=== PATIENT | male | born 1940 | race Caucasian/White ===

== ENCOUNTER 2016-11-06 06:30 | Inpatient (IN) ==
[2016-11-06] MEDS ORDERED: CeFAZolin Pre 2,000 MG/100 ML 2,000 MG/100 ML BAG IVPB ONE ×2 (06:51→16:00)
[2016-11-06] MEDS ORDERED: Plasma-Lyte A (PH 7.4) 1,000 ML IVC SCH (07:00)
[2016-11-06] MEDS ORDERED: Heparin 1,000 UNITS/500 mL NS 1,500 ML ONE (07:42)
[2016-11-06] MEDS ORDERED: Lidocaine -MPF 4% 5 ML AMPUL ONE (07:42)
[2016-11-06] MEDS ORDERED: *HR* FentaNYL (PF) 100 MCG/2 ML VIAL ONE (07:43)
--- NOTE | 2016-11-06 07:43 | History & Physical Report ---
Date of Encounter: 11/06/16 Time of Encounter: 07:42 24 Hour HP Update - Instructions Instructions: If the History and Physical is less than 30 days old and was completed prior to A.M. admission and or procedure and has NOT been updated on calendar day of procedure please complete this update prior to performing procedure. - Update Patient reports changes in Medical Condition: No Changes in examination, assessment, or condition: No Changes in Medication: No Preop tests/diagnostics Reviewed: Yes Pre-Op MRSA Screen: Negative Surgery Remains Indicated: Yes Consent for Planned Operative Procedure(s) Verified: Yes - Pre-Operative Checklist Preoperative Checklist Indicated: Yes Prophylactic Antibiotic Ordered: Yes Home Medications Include Beta Dave: Yes Beta Dave Taken Today (Day of Surgery): Yes Beta Dave Taken Yesterday (Day Prior to Surgery): Yes Is VTE Prophylaxis Indicated?: Yes
[2016-11-06] MEDS ORDERED: Lidocaine -MPF 2% 2 ML VIAL ONE ×2 (07:44→10:00)
[2016-11-06] MEDS ORDERED: *HR* Propofol 200 MG/20 ML VIAL IVP ONE (07:45)
[2016-11-06] MEDS ORDERED: *HR* Succinylcholine 200 MG/10 ML VIAL IVP ONE (07:45)
[2016-11-06] MEDS ORDERED: *HR* Phenylephrine 10 MG/ML VIAL ONE ×2 (07:47→16:13)
--- NOTE | 2016-11-06 07:49 | Anesthesia Evaluation PreOp ---
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: Denies Any Significant HX Other Medical History: Denies Any Significant HX Anesthesia History: No Prior Anesthetic Complications Alcohol Use: none Drug use: none Medications and Allergies Atorvastatin Calcium [Lipitor] 20 mg PO HS 11/06/16 [History] Cholecalciferol (D-3) [Vitamin D] 2,000 unit PO HS 11/06/16 [History] Famotidine [Pepcid] 20 mg PO HS 11/06/16 [History] Losartan Potassium [Cozaar] 50 mg PO DAILY 11/06/16 [History] Metoprolol [Lopressor] 100 mg PO BID 11/06/16 [History] Montelukast [Singulair] 10 mg PO HS 11/06/16 [History] Rivaroxaban [Xarelto] 15 mg PO HS 11/06/16 [History] 3 Allergy/AdvReac Type Severity Reaction Status Date / Time No Known Allergies Allergy Verified 11/06/16 07:11 - Meds/Allergy Pre-op Review Medications Reviewed: Yes Allergies Reviewed: Yes Beta Blockers on Current Med List: Yes (Took Metoprolol today 0430) Anesthesia Results - Labs Laboratory Tests 10/17/16 10/17/16 10/17/16 16:25 16:25 16:25 Hgb 14.7 Hct 46.8 Plt Count 106 L PT 25.4 H INR 2.3 APTT 39.0 H Sodium 141 Potassium 4.1 BUN 20 Creatinine 1.00 - Imaging EKG: report reviewed (Atrial Pacing) Additional studies: ECHO EF 40-45% Anesthesia Exam O2 Sat Height 1.83 m Height 1.83 m Height 1.83 m Weight 80.286 kg Weight 80.286 kg Weight 80.286 kg O2 Sat by Pulse Oximetry 98 O2 Sat by Pulse Oximetry 98 Vital Signs Temp Pulse Resp BP Pulse Ox 97.7 F 62 18 127/73 98 11/06/16 06:54 11/06/16 06:54 11/06/16 06:54 11/06/16 06:54 11/06/16 06:54 Height: 6'0 Weight: 174 lbs NPO (# of Hours): MN Pain Scale: 0 - HEENT Pupil (Motor): Pupils equal, EOMI Mallampati: II Denture Type: Upper: Complete Oral Opening: Less than or equal to 3 - DRAWING K[employer] SUPERVISOR LOC: Oriented [employer]RAWING [employer] SUPERVISOR Motor: Normal RUE, Normal LUE, Normal RLE, Normal LLE, Normal Face [employer] SUPERVISOR Sensory: Normal: RUE, LUE, RLE, LLE, Face - Cardiac Rhythm: Regular Murmur: None JVD: No Carotid Bruit: No - Pulmonary Breath Sounds: bilateral Clear Respiratory Effort: Symmetrical Anesthesia Assess/Plan ASA Score: 4 (Cardiomyopathy HTN) Modified Ada Scale for Level of Consciousness: Cooperative, oriented, and tranquil Anesthetic Plan: General Monitoring Plan: Standard Monitors, A-Line Recovery Plan: PACU (Discussed GA, A-line agrees to proceed)
[2016-11-06] MEDS ORDERED: Heparin 1,000 UNITS/500 mL NS 500 ML ONE (07:56)
[2016-11-06] MEDS ORDERED: *HR* Midazolam HCl 2 MG/2 ML VIAL ONE (08:21)
[2016-11-06] MEDS ORDERED: Heparin 1,000 UNITS/500 mL NS 1,000 ML ONE (09:59)
[2016-11-06] MEDS ORDERED: *HR* Heparin 5,000 UNIT/ML VIAL ONE ×2 (10:14→12:18)
[2016-11-06] MEDS ORDERED: EPHEDrine 50 MG/ML VIAL ONE ×2 (10:19→16:47)
[2016-11-06] MEDS ORDERED: Ringers Solution, Lactated 1,000 ML IVC SCH (12:15)
[2016-11-06] MEDS ORDERED: Dexamethasone 4 MG/ML VIAL ONE (12:23)
[2016-11-06] MEDS ORDERED: Ondansetron 4 MG/2 ML VIAL ONE (12:23)
[2016-11-06] MEDS ORDERED: *HR* HYDROmorphone 2 MG/ML SYRINGE ONE (15:02)
--- NOTE | 2016-11-06 15:39 | Operative Note ---
Date of procedure: 11/06/16 Pre-op diagnosis: PAD/claudication Post-op diagnosis: same Procedure: right leg angiogram with attempted endovascular intervention for right BK popliteal [employer] right femoral-tibioperoneal trunk bypass with 6 mm PTFE Distaflo right [employer] endarterectomy with Hemashield patch angioplasty right BK popliteal and TPT endarterectomy with bovine pericardial patch angioplasty right post. tibial artery thrombectomy with 3 Fr Bozena Complications: none Anesthesia: GETA Surgeon: Sanjiv Joyce Co-Surgeon: Darwin Ashraf Estimated blood loss (cc): 250 Specimen: none Condition: stable Disposition: PACU Procedure in Detail: History Blaise Turner is a 75-year-old white male with a long history of peripheral vascular and cardiovascular disease. He does undergone a aortobifemoral bypass graft in 1992. He re-presented to my office this summer with severe right lower extremity pain and claudication. He was found to have an occluded popliteal and tibial system proximally and an ankle-brachial index of 0.5. Patient also has significant cardiac disease as well as cardiac arrhythmias and cardiomyopathy. Procedure After informed consent was obtained the patient was taken to the operating room. General endotracheal anesthesia was established. Arterial line was placed. A timeout protocol was observed. A 2 team surgical approach was necessary for this case due to the complexity of the operation and to expedite intraoperative decision making as well as to reduce intraoperative blood loss and anesthetic time in this redo procedure with the patient with compromise cardiovascular status. An incision was made in the right groin. Dissection was carried down to the right groin common femoral artery system and the right limb of the aortobifemoral bypass graft. An 18-gauge needle was used to puncture the common femoral artery through the location of the foot of the graft. A 5 Gabonese sheath was then placed and this was eventually exchanged for 6 Gabonese sheath. An angiogram was then performed by injecting contrast through the sheath into the right lower extremity. Contrast was followed from the common femoral artery to the distal tibials. The patient was identified as having an occluded below the knee and at the knee popliteal artery and tibial peroneal trunk. The patient also appeared to have an occluded anterior tibial artery. Therefore an attempt was made to cross the lesion. A glide catheter and Glidewire were then inserted. The Glidewire was able to transverse the popliteal artery occlusion. However when trying to selectively cannulate the tibial vessels and this was found to be unsuccessful. A variety of wires and catheters were used. It was judged that there was significant plaque that it prevented the wire from being placed so that an angioplasty could be safely performed and so therefore the endovascular approach to this problem was abandoned and the patient needed an open procedure. Attention was then directed to the [id number] popliteal area. An incision was made and dissection was carried down to the [id number] popliteal and tibial peroneal trunk and tibial bifurcation regions. The patient had previous surgery here so as in the groin which was a redo procedure the right calf area was also redo. There was significant inflammatory changes and adhesions between the arteries and veins at this location leading to a tedious dissection. Eventually control was obtained of the vessels. There are no Doppler signals present. The vessels were small in size. A subsartorial tunnel was then created and a 6 mm PTFE bypass graft was selected. This was a Distaflo graft. He was then passed through the tunnel. Heparin was then administered in a dose of 5000 units. The common femoral artery was then opened. A dense calcific plaque was identified. This required a formal right common femoral artery endarterectomy. After the endarterectomy was successfully performed a patch angioplasty using Hemashield was then performed. Simultaneously the [id number] popliteal and tibial peroneal trunk artery were explored. A long endarterectomy was necessary at this location as well. The tibial peroneal trunk and proximal posterior tibial artery were very fragile and required a very delicate and tedious approach. Backbleeding was established from the anterior tibial artery. A bovine pericardial patch was selected for the below-knee popliteal and tibial peroneal trunk. After the these 2 endarterectomies in patches were performed the anastomoses were created. The distal anastomosis was treated first onto the bovine pericardial patch. After this was done the proximal anastomosis was created onto the endarterectomized and patched common femoral artery. After appropriate backbleeding and flushing the graft was opened. Pulsatile flow was achieved through the graft where area however runoff into the surgical circulation was unsatisfactory. Therefore further dissection was made of the right posterior tibial artery by extending the incision in the calf. The vessel itself measured 2-3 mm in diameter. Soft. Control was obtained of the vessel. A transverse arteriotomy was then made. A 3 Gabonese Bozena catheter was passed from this incision to the level of the foot. This was able to pass with minimal resistance. The area was flushed with saline at. Neck bleeding was then established. Attention was then directed retrograde. The 3 [place]onese Bozena catheter was passed into the more proximal posterior tibial artery and the tibial peroneal trunk trunk up to the area of the anastomosis to the bypass graft. Then progressively increasing diameter dilators were gently inserted retrograde. This included a 1.5, 2.0, and 2.5 mm arterial dilators. With this done and excellent pulsatile flow was established. This area was back flushed. The transverse arteriotomy at the posterior tibial artery was then closed with 6 -0 Prolene suture. After appropriate backbleeding and flushing the area was then opened again. The patient demonstrated palpable pulse and a strong biphasic signal at the posterior tibial artery at the ankle. With this accomplished the revascularization had achieved its intended goal. Therefore the wounds were irrigated and hemostasis was achieved. The wounds were then closed in layers using absorbable suture. There were no intraoperative complications. The patient tolerated the procedure well. The patient was excreted in the operating room. He was taken to the recovery room in hemodynamically stable condition.
[2016-11-06] MEDS ORDERED: CeFAZolin (wt based) IVPB STA (15:49)
[2016-11-06] MEDS: *HR* HYDROmorphone (PF) 1 MG/ML SYRINGE IVP PRN ×4 (15:50→16:45)
--- NOTE | 2016-11-06 17:27 | Anesthesia Evaluation Post Op ---
Date of Encounter: 11/06/16 Time of Encounter: 17:24 - Vital Signs Vital Signs: Vital Signs/O2 Sat/Glucose, Most Current Temp Pulse Resp BP Pulse Ox 11/06/16 17:08 61 16 108/94 98 11/06/16 16:59 60 16 100/66 98 11/06/16 16:49 60 14 101/50 98 11/06/16 16:39 97.5 F L 60 16 95/63 97 11/06/16 16:29 60 16 115/68 98 11/06/16 16:19 61 16 107/54 98 11/06/16 16:09 97.6 F 60 16 106/50 96 11/06/16 15:59 60 16 83/55 93 11/06/16 15:49 61 16 98/56 96 11/06/16 15:39 98.3 F 61 12 114/47 98 - Lungs Lungs: Clear Ascult./Percussion - Airway Airway: Non-obstructed - Cardiovascular Baseline Rhythm - Mental Status Mental Status: Alert & Oriented, Answers Appropriately - Pain Pain Scale: 0 Pain Scale used: Numeric (1 - 10) - Nausea Vomiting Nausea Vomiting: Not Present - Hydration Hydration: Ice chips, Burton catheter - Discharge PostOp Status: Transfer Patient to floor Anes Supervising Prov Stmt: Pt seen/evaluated, VSS And pt has met criteria for discharge to floor. - MD Elva
[2016-11-06] MEDS ORDERED: *HR* HYDROcodone/Acet 5/325 mg TABLET PO PRN (17:29)
[2016-11-06] MEDS ORDERED: *HR* Morphine 2 MG/ML SYRINGE IVP PRN ×2 (17:29)
[2016-11-06] MEDS ORDERED: Naloxone 0.4 MG/ML INJ IVP PRN (17:29)
[2016-11-06] MEDS ORDERED: ceFAZolin 2,000 MG in D5% in Water 100 ML IVPB SCH (17:29)
[2016-11-06] MEDS ORDERED: Acetaminophen 325 MG TABLET PO PRN (17:29)
[2016-11-06] MEDS: Metoprolol 100 MG TABLET PO SCH (20:27)
[2016-11-06] MEDS ORDERED: Famotidine 20 MG TABLET PO SCH (21:00)
--- NOTE | 2016-11-06 23:36 | Operative Note ---
Date of procedure: 11/06/16 Pre-op diagnosis: Peripheral vascular disease with disabling claudication Post-op diagnosis: same Procedure: 1. Right common femoral artery endarterectomy with Hemashield patch angioplasty 2. Right popliteal and tibioperoneal trunk endarterectomy with bovine pericardial patch angioplasty. 3. Right common femoral to tibioperoneal trunk artery bypass with 6mm PTFE Distaflo graft. 4. Right posterior tibial artery thrombectomy with 3 bahamian alexandra embolectomy catheter. Complications: None Anesthesia: GETA Surgeon: Darwin Ashraf Co-Surgeon: Sanjiv Joyce Estimated blood loss (cc): 250 Specimen: None Condition: stable Disposition: PACU Procedure in Detail: Indications: The patient is a 75 year old male with a history of cornary artery disease, ischemic cardiomyopathy and peripheral vascular disease. He previously underwent an aortobifemoral bypass. He was recently found to have disabling claudication and was found to have significant disease a popliteal and tibial artery occlusion. Due to the severity of his symptoms, revascularization was recommended. Procedure: The patient was identified in the preoperative area. The risks, benefits, and alternatives of the procedure were discussed. All questions were answered. The patient was taken to the operating room and placed in supine position on the operating room table. After the induction of general endotracheal anesthesia, he was cleaned and draped in normal sterile fashion. A two surgeon approach was utilized for this procedure in order to minimize anesthetic time and the risks for complications due to the patients comorbid conditions. In addition, a two surgeon approach was used for intraoperative decision making. An oblique incision was made over the right groin sharply through his previous scar. Hemostasis was obtained with electrocautery. Through a process of blunt , sharp, and electrocautery dissection, the right femoral vessels were dissected circumferentially and surrounded with vessel loops. Dr. Joyce accessed the right femoral artery with a large bore needle and advanced a wire into the superficial femoral artery. The needle was exchanged for a 5 bahamian sheath and then exchanged for a 6 bahamian sheath. Angiography was performed and multiple attempts to cross the occluded popliteal and tibial vessels and reenter the [place] artery were unsuccessful. An incision was made on the right medial calf sharply. Hemostasis was obtained with electrocautery. Through a process of blunt, sharp, and electrocautery dissection, the left below-knee popliteal artery was dissected proximally and distally and surrounded with vessel loops. A graft was tunneled between the popliteal and femoral incisions. The patient received 5000 units of heparin intravenously. Additional heparin was given throughout the case to maintain adequate anticoagulation. The popliteal vessels were occluded and a longitudinal arteriotomy was made in the popliteal artery. Due to the extent of the occlusion, the tibioperoneal trunk, and anterior tibial vessels were dissected. This required ligation and division of the anterior tibial vein. The tibial vessels were surrounded with vessel loops and the arteriotomy was extended into the tibioperoneal trunk until the vessel lumen appear patent. Using a dental freer, an endarterectomy was performed on the below knee popliteal artery and tibioperoneal trunk artery. A bovine pericardial patch was cut to fit the defect and sutured in place with a running 6-0 prolente. Simultaneously, tension was applied to the femoral vessel loops and an arteriotomy was made in the common femoral artery. Extensive stenotic plaque was noted. A dental freer was then used to perform an endartectomy on the right common femoral artery. Proximal and distal endpoints were inspected and no elevated flaps were noted. A bovine pericardial patch was then cut to fit the defect and sutured in place with a 6-0 Prolene. The patch over the popliteal artery and tibioperoneal trunk artery was incised longitudinally. The distal end of the graft was sutured in place with a running 6-0 Prolene, but not tied. Heparinized saline was infused into the lumen. A longitudinal incision was then made in the patch over the common femoral artery and the graft was cut to fit the defect. The graft was anastamosed with a running 6-0 Prolene. The vessels were flushed through the graft and heparin was infused into the lumen. The graft was clamped with an atraumatic clamp. Thrombin and gelfoam were used at the proximal anastamosis. The distal arterial anastomosis suture line was completed. Prior to completing the closure , the popliteal vessels were flushed and reoccluded. Heparinized saline was infused into the lumen. The anastamosis was tied and then flow was restored. The tibioperonal trunk had no signifcant flow on doppler. An arteriotomy was made and a 3 bahamian alexandra catheter was passed distally. The vessel was then dilated up to 2.5mm with arterial dilators and retrograde flow was then noted. The lumen was flushed with heparinized saline and an arteriotomy was then reapporoximated with 6-0 Prolene. Flow was then restored. Polyphasic signals were noted distal to the distal anastomosis as well as at the posterior tibial artery. Wounds were irrigated with antibiotic-containing saline. Thrombin and gelfoam were used to aid in hemostasis. Platelet rich and platelet poor plasma were infused into the wounds. Meticulous hemostasis was obtained throughout the wound with electrocautery. Wounds were reapproximated with layers of 2-0 and 3-0 Vicryl. Skin was reapproximated with 4-0 vicryl. Sterile dressings were applied. The patient was extubated and taken to recovery room in stable condition.
[2016-11-07] MEDS ORDERED: Ondansetron 4 MG/2 ML VIAL IVP SCH
[2016-11-07] MEDS ORDERED: Ondansetron 4 MG/2 ML VIAL IVP PRN (00:03)
[2016-11-07] MEDS: ceFAZolin 2,000 MG in D5% in Water 100 ML IVPB SCH ×2 (00:39→08:15)
[2016-11-07 06:29] LABS: Basophils % 0.1 %; Hemoglobin 11.1 g/dL (12.9-16.9); Immature Granulocytes % 0.3 % (0-4); Lymphocytes % 10.9 %; Mean Corpuscular HGB Conc 32.6 g/dL (31.6-35.5); Mean Corpuscular Hemoglobin 28.2 pg (28.0-33.3); Mean Corpuscular Volume 86.3 fL (83.0-100.0); Mean Platelet Volume 11.4 fL (9.4-12.4); Monocytes # 0.9 K/mcL (0.0-1.3); Monocytes % 10.2 %; Neutrophils # 6.9 K/mcL (1.6-8.9); Platelet Count 107 K/mcL (140-400); Red Blood Count 3.94 M/mcL (4.19-5.50); Red Cell Distribution Width 15.5 % (11.5-14.5); Segmented Neutrophils % 78.5 %
[2016-11-07 06:44] LABS: BUN/Creatinine Ratio 21 (6-26); Blood Urea Nitrogen 19 mg/dL (8-26); Carbon Dioxide 22 mEq/L (19-29); Chloride 107 mEq/L (98-109); Glucose 170 mg/dL (70-99); Osmolality,Calculated 292 (280-300); Potassium 3.9 mEq/L (3.5-4.5); Sodium 138 mEq/L (136-145); eGFR For African Americans > 60 (> 60); eGFR For Non-African Americans > 60 (> 60)
[2016-11-07] MEDS: Metoprolol 100 MG TABLET PO SCH (08:15)
[2016-11-07] MEDS ORDERED: Cholecalciferol (D-3) 1,000 UNIT TABLET PO SCH (09:00)
[2016-11-07] MEDS ORDERED: 0.9 % Sodium Chloride 250 ML IVC ONE (16:28)
[2016-11-07 17:19] VITALS: BP 119/54
--- NOTE | 2016-11-07 18:25 | Discharge Summary ---
Date of Encounter: 11/07/16 Time of Encounter: 18:23 - Discharge Diagnosis (1) PAD (peripheral artery disease) Priority: Primary Status: Acute Comments: Right lower extremity claudication with ankle brachial index of 0.5. Patient underwent extensive right lower extremity revascularization yesterday. Patient to be discharged today. (2) CHF (congestive heart failure) Priority: Secondary Status: Chronic Comments: Patient under medical treatment for congestive heart failure. Qualifiers: Congestive heart failure type: unspecified congestive heart failure type Congestive heart failure chronicity: chronic Qualified Code(s): I50.9 - Heart failure, unspecified (3) CAD (coronary artery disease) Priority: Secondary Status: Chronic Comments: Patient with known coronary artery disease and status post open heart bypass grafting. Patient under medical treatment. Qualifiers: Coronary Disease-Associated Artery/Lesion type: [place] artery [place] vs. transplanted heart: [place] heart Associated angina: without angina Qualified Code(s): I25.10 - Atherosclerotic heart disease of [place] coronary artery without angina pectoris - Discharge Medications Home Medications: Atorvastatin Calcium [Lipitor] 20 mg PO HS 11/06/16 [History] Cholecalciferol (D-3) [Vitamin D] 2,000 unit PO HS 11/06/16 [History] Famotidine [Pepcid] 20 mg PO HS 11/06/16 [History] Losartan Potassium [Cozaar] 50 mg PO DAILY 11/06/16 [History] Metoprolol [Lopressor] 100 mg PO BID 11/06/16 [History] Montelukast [Singulair] 10 mg PO HS 11/06/16 [History] Rivaroxaban [Xarelto] 15 mg PO HS 11/06/16 [History] Allergies/Adverse Reactions: 3 Allergy/AdvReac Type Severity Reaction Status Date / Time No Known Allergies Allergy Verified 11/06/16 07:11 Date of admission: 11/06/16 17:19 Primary care physician: Roberto Rodney DO Consults: None Procedure(s) Performed: Right lower extremity revascularization with angiogram, right femoral to tibial peroneal trunk bypass graft, right femoral endarterectomy, right below-knee popliteal and tibial peroneal trunk endarterectomy with patch angioplasty, and tibial Bozena catheter thrombectomy. Discharging clinician: Sanjiv Joyce Anticipated date of discharge: 11/07/16 - Patient Status Disposition: Home, Self-Care Condition: Good Functional capacity at discharge: independent ambulation Overall status at discharge: patient is progressing back to baseline - Discharge Instructions Instructions: Femoropopliteal Bypass (DC), Peripheral Vascular Angioplasty (DC) Follow Up With: Shelley Ruvalcaba CNP [Advanced Practice Nurse] - 11/16/16 10:15 am Sanjiv Joyce MD [Partnered Physician] - 12/04/16 10:30 am Additional Instructions: Keep right lower extremity surgical incisions dry for a total 5 days following surgery. No lifting greater than 10 pounds. No driving. No manual labor. Patient may ambulate inside and outside. Patient may use stairs as tolerated. Resume Xarleto on evening of discharge. - Diet and Activity Activity: increase activity as tolerated Diet: advance to your usual diet - Hospital Course Hospital course: Mr. Turner is a 75 year old male With severe right lower extremity claudication. He underwent an extensive right lower extremity bypass graft and endarterectomies. Patient was able to ambulate on postoperative day #1 in the hallways. His right foot was warmer and pinker. He had excellent Doppler signals at the right foot. The patient was felt fit for discharge. Postoperative instructions were provided to the patient prior to discharge. He is to restart his relative tonight. - Time Spent with Patient Total time spent providing and/or coordinating discharge services: Exam Vital Signs, Last 4 Hours Temp Pulse Resp BP Pulse Ox 11/07/16 17:12 59 119/54 98 11/07/16 15:45 97.7 F 62 16 97/46 99 General: Present: Conversant, No Apparent Distress, Well developed, Well nourished HEENT: Present: Atraumatic Neck: Absent: JVD Cardiac: Present: Reg Rate and Rhythm Lungs: Present: Normal Breath Sounds Neuro: Present: Alert and responsive, No focal deficits noted Abdomen: Present: Soft Vascular: Present: Surgical incisions (Surgical incisions are clean and dry), Other (Patient has Doppler signals at the dorsalis pedis and posterior tibial artery and in the first and second toe webspace.) Skin: Present: No rashes noted on visualized skin - VTE Documentation of Mechanical Device: Intermittent pneumatic compression device
== END 2016-11-07 18:58 | disposition home or self-care (01) | DRG 253 ==
LOC: SAMDAY 06:30 → 2NNU 17:19
PROVIDERS: ADMIT Surgery Vascular Surgery; ATTEND Surgery Vascular Surgery
PROC: [UNRECOGNIZED PROCEDURE] (2016-11-06 08:15)

== ENCOUNTER 2016-12-24 12:31 | Inpatient (IN) ==
[~2016-12-24 12:31] MED LIST: *HR* Heparin 10,000 UNIT/10 ML VIAL ONE; 0.9 % Sodium Chloride 1,000 ML ONE; Heparin 1,000 UNITS/500 mL NS 500 ML ONE; Nitroglycerin 1,000 MCG/10 ML VIAL IV ONE
[2016-12-24] MEDS ORDERED: *HR* Midazolam HCl 2 MG/2 ML VIAL ONE (13:02)
[2016-12-24] MEDS ORDERED: Verapamil 5 MG/2 ML VIAL ONE (13:19)
[2016-12-24] MEDS ORDERED: Heparin 1,000 UNITS/500 mL NS 500 ML ONE (14:04)
--- NOTE | 2016-12-24 14:20 | Cardiology History & Physical ---
<Robert Guthrie - Last Filed: 12/24/16 14:28> Date of Encounter: 12/24/16 Time of Encounter: 13:30 Assessment and Plan (1) ST elevation myocardial infarction (STEMI) Status: Acute EKG changes at [facility] concerning for acute inferior AK, recipricole changes in anteriolateral leads. Taken directly to cardiac catheterization lab from [facility]. He presented on heparin gtt and was loaded with brilinta. Currently hemodynamically stable. H/o CABG earlier this year and multiple PCI. Qualifiers: Involved coronary artery: other inferior wall coronary artery Qualified Code(s): I21.19 - ST elevation (STEMI) myocardial infarction involving other coronary artery of inferior wall (2) CHF (congestive heart failure) Status: Chronic The assessment and plan as outlined above was discussed with the patient and/or family members who expressed understanding and agreement. All questions were answered. H/o ICMP. Last TTE completed here in 2014 showed EF 45%. Mild to moderate MR. mild pulmonary hypertension. Follows with Dr. Cox in [place]. ICD in place s/p recent upgrade. Will order records from [place]. CXR showed no acute findings. BNP 1242. Chronically elevated. Denies SOB or weight gain. Check TTE. Strict I&O and daily weights. Qualifiers: Congestive heart failure type: unspecified congestive heart failure type Congestive heart failure chronicity: chronic Qualified Code(s): I50.9 - Heart failure, unspecified (3) CAD (coronary artery disease) Status: Chronic H/o multiple PCI and CABG with Dr. Samuels at [place] 03/2016. Continue asa, statin, and bb. Qualifiers: Coronary Disease-Associated Artery/Lesion type: [place] artery [place] vs. transplanted heart: [place] heart Associated angina: without angina Qualified Code(s): I25.10 - Atherosclerotic heart disease of [place] coronary artery without angina pectoris (4) HX: anticoagulation Status: Acute The assessment and plan as outlined above was discussed with the patient and/or family members who expressed understanding and agreement. All questions were answered. Noted to be on xarelto. Reports h/o of DVT. Will order records from [place]. History of Present Illness Chief complaint: Chest and epigastric pain HPI: Mr. Turner is a 76 year old male with a history of CAD s/p CABG 03/2016, multiple previous PCI, ICMP s/p ICD 1998 and generator change earlier this year , PVD, and COPD who presented to [facility] with chest pain. His pain started when he was driving his car. He describes it as a bandlike pressure in his abdomen and chest. He c/o increased gas pressure in his abdomen over the last week. He saw his field cashier at [facility] earlier this morning. He denied chest pain at that time and reports and EKG was completed and there was no concerning findings. EKG at [facility] ER showed ST elevation in the inferior leads concerning for acute AK. He was transferred to [facility] and taken directly to the cardiac catheterization lab for emergent LHC. He was started on heparin gtt and loaded with brilinta. Past Med Surg Social Fam HX - Past Medical History Medical history: asthma, CHF, COPD, coronary artery disease, hyperlipidemia, hypertension, myocardial infarction, other Psychiatric history: no psych history - Past Surgical History Surgical History: angioplasty/stent, coronary bypass (CABG), LE stent(s), LE vascular intervention, pacemaker/AICD - Social History Smoking Status: Former smoker Smokeless Tobacco Status: No Alcohol use: none Drug use: none - Family History Mother Adopted: No Family Member Ethnicity: Non- Hx Family Cardiac Disorders: Yes Hx Family Respiratory Disorders: Yes Medications and Allergies Cholecalciferol (D-3) [Vitamin D] 2,000 unit PO HS 11/06/16 [History] Famotidine [Pepcid] 20 mg PO HS 11/06/16 [History] Metoprolol [Lopressor] 100 mg PO BID 11/06/16 [History] Montelukast [Singulair] 10 mg PO HS 11/06/16 [History] traZODone [TraZODone] 50 mg PO HS 12/24/16 [History] Aspirin 81 mg PO DAILY #30 tab.chew 12/26/16 [Rx] Atorvastatin [Lipitor] 80 mg PO HS #30 tablet 12/26/16 [Rx] Losartan [Cozaar] 50 mg PO DAILY #30 tablet 12/26/16 [Rx] Rivaroxaban [Xarelto] 20 mg PO 1700 #30 tablet 12/26/16 [Rx] Ticagrelor [Brilinta] 90 mg PO BID #60 tablet 12/26/16 [Rx] 3 Allergy/AdvReac Type Severity Reaction Status Date / Time No Known Allergies Allergy Verified 11/06/16 07:11 All Systems Review: A 10-system review of systems was performed and is negative for pertinent findings except as documented above in the HPI. Physical Examination General: Conversant, No Apparent Distress HEENT: Atraumatic, Normocephaly, Mucus Membranes Moist Neck: No JVD, Normal carotid pulses Cardiac: Reg Rate and Rhythm, Normal S1 and S2, No Murmur Lungs: Normal Breath Sounds, No Wheeze, Rales, Rhonchi Neuro: Alert and responsive, No focal deficits noted Abdomen: Soft, Non-Tender Skin: No rashes noted on visualized skin Musculoskeletal: No Chest Wall Tenderness Extremities: No Clubbing, No Cyanosis, No Edema, Normal Pulses Results - EKG Interpretation EKG results cardiology: personally reviewed <John Bob - Last Filed: 12/27/16 11:06> Date of Encounter: 12/27/16 - Attending Attestation Pt seen and examined independently, chart reviewed, essentially agree with findings as listed, my evaluation as below: IMP: 1. STEMI- inferior lateral, ongoing chest pain, discussed risks and benefits of LHC/poss, pt agrees to proceed 2. CAD - severe triple vessel disease, status post CABG 03/2016, pt unsure of number of grafts, old records requested. 3. PVD - hx claudication which resolved post reported fem-fem bypass. 4. hypertension - controlled on current meds 5. Hyperlididemia -following with primary care, reports is at goal on current meds. History of Present Illness HPI: Mr. Turner is a 76 year old male All Systems Review: A 10-system review of systems was performed and is negative for pertinent findings except as documented above in the HPI. Results 12/26/16 04:59 12/26/16 04:59
--- NOTE | 2016-12-24 14:56 | Invasive Diagnostic Lab Proc ---
Name: Blaise Turner Date of Study: 12/24/2016 Date: 1940 Ht: 71.0in Medical Record#: [id number] Age: 76 Wt: 174.17lb Gender: Male BSA: 1.99 Order #: [id number] BMI: 24.29 Physicians Procedure Physician: John Bob DO Referring MD: Referring MD: Staff Name Position Time In Sites, [facility] RT (R) Scrub 01:09 PM Santiago Townsend RN Service Porter 01:10 PM Karmen Dewitt RT (R) Monitor 01:10 PM Belinda Price RN Service Porter 01:10 PM Wendy Rust RN Monitor 01:13 PM Shikha Pierre RN Service Porter 01:13 PM Indications Indication STEMI Procedures Performed Procedure L HRT ART/GRFT ANGIO PRQ CARD REVASC IL 1 VSL Pre-Procedure Checklist Informed consent is complete signed and on chart. H&P is on chart. ID band is on and ID verified with patient. Patient NPO for procedure The procedure was described for the patient and questions were answered. Blood Pressure: 133/106 ECG is on chart. Plan of Care Patient will tolerate the procedure without complications. Adequate level of comfort will be maintained. Hemodynamics will remain stable Patient will recover from procedure without complications. Respiratory function will be maintained. Cardiac rhythm will remain stable. Patient temperature will be maintained. Patient and/or family have verbalized understanding of the procedure. Patient Education Chief Complaint/Reason for Test: Cardiac Cath Developmental Category: Geriatric (65+ years) Developmentally Appropriate for Age: Yes Learning Barriers: None Education Needs: Procedure Education Method: Verbal Information Taught: Cardiac Cath Educational Evaluation: Able to repeat information Intravenous Access Time IV Size Location DC'd Fluid/Drip Rate Units RN 20g 1 1/4" Patent On Arrival Rt Arm 0.9NaCl 20g 1 1/4" Patent On Arrival Rt Antecubital Allergies No Known Allergies NKDA Vital Signs Time BP (mmHg) HR (bpm) O2 Sat. RR (bpm) LOC 01:08 PM 133 / 106 69 91 % 19 4 = Oriented but drowsy 01:14 PM / % 5 = Fully awake and oriented or at pre-proc level 01:14 PM / % 4 = Oriented but drowsy 01:29 PM / % 4 = Oriented but drowsy 01:44 PM / % 4 = Oriented but drowsy 01:59 PM / % 4 = Oriented but drowsy 02:14 PM / % 4 = Oriented but drowsy 01:07 PM 133 / 106 76 90 % 01:12 PM 147 / 79 61 94 % 16 01:17 PM 145 / 79 61 93 % 18 01:22 PM 126 / 76 64 88 % 19 01:27 PM 78 / 59 89 96 % 22 01:28 PM 132 / 62 75 95 % 19 01:32 PM 126 / 63 60 92 % 15 01:37 PM 126 / 65 59 96 % 15 01:42 PM 133 / 63 60 96 % 11 01:47 PM 134 / 63 60 96 % 19 01:52 PM 139 / 64 60 96 % 15 01:57 PM 125 / 74 59 99 % 13 02:02 PM 133 / 67 64 98 % 19 02:07 PM 140 / 66 60 100 % 20 02:12 PM 134 / 67 60 100 % 11 02:17 PM 124 / 68 60 99 % 11 02:22 PM 135 / 70 59 100 % 17 02:27 PM 131 / 69 60 99 % 13 02:32 PM 140 / 67 60 99 % 14 02:37 PM 136 / 75 63 98 % 15 Procedural Medications Time Medication Dose Units Method Given By 01:10 PM Oxygen 2 L/min nasal cannula Santiago Townsend RN 01:16 PM Versed 2 mg Intravenous Shikha Pierre RN 01:22 PM Lidocaine 2% 2 ml Subcutaneous John Bob DO 01:27 PM Heparin 4000 units Nitroglycerin 200 mcg Verapamil 2.5 mg Intraarterial John Bob DO 01:34 PM Oxygen 4 L/min nasal cannula Shikha Pierre RN 01:53 PM Lidocaine 2% 9 ml Subcutaneous John Bob DO Janee Score Preprocedure Postprocedure Activity 2- Moves 4 extremities sustained head lift Activity 2- Moves 4 extremities sustained head lift Circulation 2- SBP +/= 20 points of pre-anesthetic level Circulation 2- SBP +/= 20 points of pre-anesthetic level Consciousness 2- Awake and alert oriented x 3 Consciousness 2- Awake and alert oriented x 3 O2 Saturation 2- Able to maintain O2 satruation of 92% on room air O2 Saturation 2- Able to maintain O2 satruation of 92% on room air Respiratory 2- Able to deep breathe and cough well Respiratory 2- Able to deep breathe and cough well Total Score 10 Total Score 10 Contrast Agent: Isovue Diagnostic Contrast: 280 ml Total Contrast: 280 ml Fluoro Dose: 1613 mGy Activated Clotting Time Time Seconds to Clot 02:18 PM 273 02:40 PM 264 Procedure Log Time Note Enter By 01:06 PM CathStat 01:06 PM Vitals capture started with the following parameters, Patient=Adult, Interval=5 min, Initial Kmdmrhxa=162 mmHg, Deflation Rate=5 mmHg, Cuff placed on Right Arm 01:07 PM HR=76 bpm, PPRK=431/106 mmhg, SpO2=90.0 % 01:09 PM Pt arrived to recyclable materials sorter 2 at 13:09 [email or web address] 01:10 PM Mary Taveras RT (R) Position: Scrub Time in: 13:09 [email or web address] 01:10 PM Santiago Townsend RN Position: Service Porter Time in: 13:10 [email or web address] 01:10 PM Karmen Dewitt RT (R) Position: Monitor Time in: 13:10 [email or web address] 01:10 PM Belinda Price RN Position: Service Porter Time in: 13:10 [email or web address] 01:10 PM Patient charges- Angio tray pack, Navilyst 3mm J, Pulse Oximetry and ACIST tubing and transducer [email or web address] 01:10 PM Case Delayed No [email or web address] 01:10 PM Hair removed from procedure site in holding area using clippers. Bilateral groin prepped with Chloraprep by Mary aTveras (R), safety strap applied then patient was draped. Skin intact. [email or web address] 01:10 PM Rajinder paged/called 13:10. [email or web address] 01:11 PM Time: 13:10 Oxygen on at 2 L/min per nasal cannula by Santiago Townsend RN [email or web address] 01:12 PM HR=61 bpm, WQOR=983/79 mmhg, SpO2=94.0 %, Resp=16 B/min 01:13 PM Wendy Rust RN Position: Monitor Time in: 13:13 [email or web address] :13 PM Recorded ECG: HR=63 Condition=Condition 1 01:13 PM Shikha Pierre RN Position: Service Porter Time in: 13:13 [email or web address] 01:14 PM Procedure start 13:14 [email or web address] :14 PM Time: 13:14 Patient comfortable and pain free: Yes [email or web address] 01:14 PM Time: 13:14LOC: 5 = Fully awake and oriented or at pre-proc level [email or web address] 01:16 PM Time: 13:16 Versed 2 mg Intravenous Given by Shikha Pierre RN [email or web address] 01:16 PM Time out performed according to hospital policy [email or web address] 01:16 PM Clinical Presentation: STEMI or equivalent [email or web address] 01:17 PM HR=61 bpm, PAIE=007/79 mmhg, SpO2=93.0 %, Resp=18 B/min, Comment=sr 01:20 PM prepping for radial access [email or web address] 01:22 PM HR=64 bpm, AWIJ=318/76 mmhg, SpO2=88.0 %, Resp=19 B/min, Comment=sr : PM Time: 13:22 2 ml Lidocaine 2% to right radial Subcutaneous Given by DO tamara Odonnell 01:26 PM Access obtained by percutaneous puncture. 6Fr 10cm Terumo Glidesheath sheath placed in right Radial artery. [id number] [email or web address] 01:27 PM HR=89 bpm, NIBP=78/59 mmhg, SpO2=96.0 %, Resp=22 B/min, Comment=sr 01:27 PM Time: 13:27 Patient given 4,000 units Heparin, 200 mcg Nitroglycerin, and 2.5 mg Verapamil Intraarterial by DO tamara Odonnell 01:27 PM NIBP STAT measurement started. 01:28 PM 6Fr FR 4 catheter inserted over the wire DN [email or web address] 01:28 PM HR=75 bpm, BTTI=871/62 mmhg, SpO2=95.0 %, Resp=19 B/min 01:28 PM Recorded Pressure: Ao, HR=62, Condition=Condition 1 (Aorta) Ao 119/60/82 01:29 PM Catheter selectively placed in left ventricle [email or web address] 01:29 PM Time: 13:14 Patient comfortable and pain free: Yes [email or web address] :29 PM Time: 13:14LOC: 4 = Oriented but drowsy [email or web address] 01:29 PM Bolus angiogram of left Ventricle complete: ml/sec for a total of mls [email or web address] :29 PM SVG to the RPDA angio performed in multiple views. [email or web address] 01:31 PM SVG to the 1st OM angio performed in multiple views. [email or web address] 01:31 PM RCA angiography performed in multiple views. [email or web address] 01:32 PM HR=60 bpm, AUIH=979/63 mmhg, SpO2=92.0 %, Resp=15 B/min, Comment=sr 01:34 PM Time: 13:34 Oxygen on at 4 L/min per nasal cannula by Shikha Pierre RN [email or web address] 01:35 PM Catheter removed [email or web address] 01:36 PM 6Fr IM catheter inserted over the wire [id number] [email or web address] 01:37 PM Catheter removed [email or web address] 01:37 PM 6Fr FL 4 catheter inserted over the wire DNC [email or web address] 01:37 PM HR=59 bpm, WKLN=066/65 mmhg, SpO2=96.0 %, Resp=15 B/min, Comment=sr 01:38 PM Wire removed [email or web address] 01:38 PM wire reinserted [email or web address] 01:39 PM Wire removed [email or web address] 01:40 PM LCA angiography performed in multiple views. [email or web address] 01:41 PM Catheter removed [email or web address] 01:42 PM 6Fr XB LAD 3.5 Cordis guide catheter was used to cannulate the PCI vessel successfully. reused? No [email or web address] 01:42 PM HR=60 bpm, JRHU=270/63 mmhg, SpO2=96.0 %, Resp=11 B/min, Comment=sr 01:44 PM Time: 13:29LOC: 4 = Oriented but drowsy [email or web address] 01:44 PM Time: 13:29 Patient comfortable and pain free: Yes [email or web address] 01:45 PM Guide catheter removed intact. [email or web address] 01:45 PM 5Fr FL5 catheter inserted over the wire [id number] [email or web address] 01:47 PM HR=60 bpm, CCYV=421/63 mmhg, SpO2=96.0 %, Resp=19 B/min, Comment=sr 01:47 PM Recorded Pressure: Ao, HR=61, Condition=Condition 1 (Aorta) Ao 132/57/85 01:49 PM Catheter removed [email or web address] 01:49 PM 6Fr Pigtail catheter inserted over the wire DNC [email or web address] 01:51 PM Recorded Pressure: Ao, HR=60, Condition=Condition 1 (Aorta) Ao 140/62/90 01:52 PM HR=60 bpm, DVWQ=655/64 mmhg, SpO2=96.0 %, Resp=15 B/min, Comment=sr 01:52 PM moving to attempt access in right femoral artery [email or web address] 01:53 PM Time: 13:53 9 ml Lidocaine 2% to right groin Subcutaneous Given by John Bob DO [email or web address] 01:54 PM Micro-Introducer Kit utilized for sheath placement [email or web address] 01:55 PM Access obtained by percutaneous puncture. 6Fr 10cm Terumo [place] sheath placed in right Femoral artery. [id number] [email or web address] 01:55 PM catheter and wire removed from right radial access [email or web address] 01:57 PM HR=59 bpm, OMMF=343/74 mmhg, SpO2=99.0 %, Resp=13 B/min, Comment=sr 01:58 PM JL 4 reinserted [email or web address] 01:59 PM 0.035 260cm Glidewire wire [id number] [email or web address] 01:59 PM Time: 13:44 Patient comfortable and pain free: Yes [email or web address] 01:59 PM Time: 13:44LOC: 4 = Oriented but drowsy [email or web address] 02:02 PM HR=64 bpm, NKZQ=628/67 mmhg, SpO2=98.0 %, Resp=19 B/min, Comment=sr 02:02 PM Sheath exchanged for a [address] Berto Ultimum sheath [id number] [email or web address] 02:05 PM LCA angiography performed in multiple views. [email or web address] 02:06 PM Recorded Pressure: Ao, HR=60, Condition=Condition 1 (Aorta) Ao 125/51/79 02:07 PM HR=60 bpm, ZLHC=392/66 mmhg, XoV4=900.0 %, Resp=20 B/min, Comment=sr 02:09 PM Catheter removed [email or web address] 02:10 PM JR 4 reinserted [email or web address] 02:12 PM HR=60 bpm, ICRJ=270/67 mmhg, IcJ0=865.0 %, Resp=11 B/min, Comment=sr 02:13 PM Left ZARA to the LAD angio performed in multiple views. [email or web address] 02:14 PM Time: 13:59LOC: 4 = Oriented but drowsy [email or web address] 02:14 PM Time: 13:59 Patient comfortable and pain free: Yes [email or web address] 02:15 PM Lesion found in Proximal RCA. Pre Stenosis: 100 Pre FRANCES Flow: [email or web address] 02:17 PM HR=60 bpm, RIXW=298/68 mmhg, SpO2=99.0 %, Resp=11 B/min, Comment=sr 02:18 PM At 14:18 the ACT was 273 seconds. [email or web address] 02:18 PM 6Fr XB3.0 Cordis guide catheter was used to cannulate the PCI vessel successfully. reused? No [email or web address] 02:19 PM .014 ChoICE PT Extra Support 300cm guide wire across target lesion- successful. reused? No [email or web address] 02:22 PM Inflation device was opened. [email or web address] 02:22 PM HR=59 bpm, XOUL=041/70 mmhg, DnX0=316.0 %, Resp=17 B/min 02:22 PM 2.25mm x 8mm Synergy drug-eluting stent across target lesion- successful Lot #[id number] [email or web address] 02:27 PM HR=60 bpm, MGSI=161/69 mmhg, SpO2=99.0 %, Resp=13 B/min 02:30 PM Time: 14:14 Patient comfortable and pain free: Yes [email or web address] 02:30 PM Time: 14:14LOC: 4 = Oriented but drowsy [email or web address] 02:30 PM Stent deployed @ 14 terese for 16 seconds [email or web address] 02:31 PM Stent delivery system removed intact. [email or web address] 02:32 PM HR=60 bpm, FLLJ=697/67 mmhg, SpO2=99.0 %, Resp=14 B/min 02:32 PM Guide wire removed intact. [email or web address] 02:36 PM Procedure completed at 14:36 [email or web address] 02:36 PM Sign out completed: Radiation Dose 1613.31 mGy Fluoro Time: 26.5 Isovue 370 - 200ml contrast 280 ml given by John Bob DO. Complications: NoneCardiac Rehab Consult needed: YesConfirmed administered medications: Yes [email or web address] 02:37 PM HR=63 bpm, XZKB=980/75 mmhg, SpO2=98 %, Resp=15 B/min 02:37 PM Isovue 370 - 200ml,1 Bottle(s) used. [email or web address] 02:37 PM Sheath left in place to be pulled on floor/holding areaV+Pad [email or web address] 02:37 PM Post ECG NSR [email or web address] 02:37 PM Post Blood Pressure 136/75 [email or web address] 02:37 PM 14 ml air in Vasc Band. [email or web address] 02:38 PM Information taught Cardiac Cath, PCI, Vasc Band, and V+ Pad [email or web address] 02:38 PM Education needs Procedure, Plan of Care, and Responsibilities of Patient in Care [email or web address] 02:38 PM Learning barriers :None [email or web address] 02:38 PM Education Methods Verbal [email or web address] 02:38 PM Education evaluation Able to repeat information [email or web address] 02:38 PM Site status No bleeding/hematoma - Rt Groin as reported by Sites, Mary RT (R) at 14:38 [email or web address] 02:38 PM Site status No bleeding/hematoma - Rt Wrist as reported by Sites, Mary RT (R) at 14:38 [email or web address] 02:38 PM Opsite applied [email or web address] 02:38 PM Plavix, Effient or Brilinta given Yes [email or web address] 02:38 PM Delay to floor No [email or web address] 02:38 PM Family placed in consult room. [email or web address] 02:39 PM Coronary Dominance: right [email or web address] 02:39 PM Lesion found in Mid Circumflex. Pre Stenosis: 99 Pre FRANCES Flow: [email or web address] 02:39 PM Lesion found in 1st Marginal. Pre Stenosis: 90 Pre FRANCES Flow: [email or web address] 02:40 PM 4cc removed from VB [email or web address] 02:40 PM At 14:40 the ACT was 264 seconds. [email or web address] 02:44 PM Report given to Dario HARVEY Pt taken to ICU Room #3. 14:44 [email or web address] 02:45 PM Patient out of room: 14:45 [email or web address] Complications Complication None Hemodynamics Pressures Site Systolic/A Wave Diastolic/V Wave Mean AO 119 60 82 AO 132 57 85 AO 140 62 90 AO 125 51 79 Post Procedure Information Blood Pressure: 136/75 mmHg Rhythm: NSR Post procedural instructions were given Site Checks Time Location Status Staff Sheath In? Note 02:38 PM Rt Groin No bleeding/hematoma Sites, Mary RT (R) 02:38 PM Rt Wrist No bleeding/hematoma Sites, Mary RT (R) Pulses Time Site Pre-Procedure Post-Procedure Note 12/24/2016 1:08:00 PM Updated by RT Lg(R) on 12/24/2016 2:50:34 PM electronically signed on 12/24/2016 2:50:58 PM with status of Final
[2016-12-24] MEDS: *HR* Ticagrelor 90 MG TABLET PO SCH (20:55)
[2016-12-24] MEDS: 0.9 % Sodium Chloride 1,000 ML IVC SCH (23:34)
[2016-12-25] MEDS: *HR* Ticagrelor 90 MG TABLET PO SCH ×2 (08:52→20:12)
[2016-12-25] MEDS ORDERED: Aspirin 81 MG TAB.CHEW PO SCH (09:00)
[2016-12-25] MEDS ORDERED: Metoprolol 100 MG TABLET PO SCH (09:00)
[2016-12-25] MEDS: 0.9 % Sodium Chloride 1,000 ML IVC SCH (11:12)
--- NOTE | 2016-12-25 11:43 | Cardiology Progress Note ---
Date of Encounter: 12/25/16 Time of Encounter: 11:40 Assessment and Plan (1) ST elevation myocardial infarction (STEMI) Current Visit: Yes Status: Inactive EKG changes at [place] concerning for acute inferior DC, reciprocal changes in anteriolateral leads. Taken directly to cardiac catheterization lab from [facility]. He presented on heparin gtt and was loaded with brilinta. Underwent emergent C s/p ROCIO. Bypass grafts patent. Full [facility] report is still pending. Check TTE. Records ordered from [place] to clarify why patient is on xarelto. May need triple therapy. Patient's states he was started on xarelto during hospitalization for CABG. Denies bleeding problems. 24 hour telemetry review shows SR first degree block with atrial and AV pacing. No afib seen. No VT. occasional PVC. Importance of DAPT with asa and brilinta for minimum of one year uninterrupted reviewed with patient and family. They voiced understanding. Healthy heart diet and exercise reviewed. Cardiac rehab discussed. Continue statin and bb therapy. had multiple questions about heart healthy diet. Education reviewed. blood typer consulted. Start DVT prophylaxis. Step down to 2N. Anticipate discharge home tomorrow. Qualifiers: Involved coronary artery: other inferior wall coronary artery Qualified Code(s): I21.19 - ST elevation (STEMI) myocardial infarction involving other coronary artery of inferior wall (2) CHF (congestive heart failure) Current Visit: No Status: Chronic H/o ICMP. Last TTE completed here in 2014 showed EF 45%. Mild to moderate MR. mild pulmonary hypertension. Follows with Dr. Cox in [place]. ICD in place s/p recent upgrade. Will order records from [place]. CXR showed no acute findings. BNP 1242. Chronically elevated. Denies SOB or weight gain. Check TTE. Strict I&O and daily weights. Qualifiers: Congestive heart failure type: unspecified congestive heart failure type Congestive heart failure chronicity: chronic Qualified Code(s): I50.9 - Heart failure, unspecified (3) CAD (coronary artery disease) Current Visit: No Status: Chronic H/o multiple PCI and CABG with Dr. Goncalves at [place] 03/2016. Continue asa, brilinta, statin, and bb. Increase lipitor to 80 mg daily. Qualifiers: Coronary Disease-Associated Artery/Lesion type: [place] artery [place] vs. transplanted heart: [place] heart Associated angina: without angina Qualified Code(s): I25.10 - Atherosclerotic heart disease of [place] coronary artery without angina pectoris (4) HX: anticoagulation Current Visit: Yes Status: Acute The assessment and plan as outlined above was discussed with the patient and/or family members who expressed understanding and agreement. All questions were answered. Noted to be on xarelto. Reports h/o of DVT and possible afib. Will order records from [place] to determine if triple therapy is appropriate . Discussion w patient/family: The assessment and plan as outlined above was discussed with the patient and/or family members who expressed understanding and agreement. All questions were answered. Thank you for involving us in the care of your patient. Please call with any questions. Subjective Principal diagnosis: Acute DC Interval history: Mr. Turner denies recurrent chest pain or abdominal pain. at bedside. She reports history of atrial fibrillation after CABG. Patient also reports h/o DVT. Records ordered from [place] and his overhead irrigator Dr. Cox to determine if he needs to continue xarelto. Objective Vital Signs, Last 4 Hours Temp Pulse Resp BP Pulse Ox 12/25/16 11:18 97.5 F L 12/25/16 11:00 61 19 135/58 98 12/25/16 10:00 61 16 123/57 97 12/25/16 09:00 58 15 126/63 98 12/25/16 08:00 59 14 125/54 97 General: Conversant, No Apparent Distress HEENT: Atraumatic, Normocephaly, Mucus Membranes Moist Neck: No JVD, Normal carotid pulses Cardiac: Reg Rate and Rhythm, Normal S1 and S2, No Murmur, Other (Midsternal incisional scar. ) Lungs: Normal Breath Sounds, No Wheeze, Rales, Rhonchi Neuro: Alert and responsive, No focal deficits noted Abdomen: Soft, Non-Tender Skin: No rashes noted on visualized skin Musculoskeletal: No Chest Wall Tenderness Extremities: No Clubbing, No Cyanosis, No Edema, Normal Pulses Results Vital Signs Temp Pulse Pulse Resp BP Pulse Ox 12/25/16 11:18 97.5 F L 12/25/16 11:00 61 19 135/58 98 12/25/16 10:00 61 16 123/57 97 12/25/16 09:00 58 15 126/63 98 12/25/16 08:00 59 14 125/54 97 12/25/16 07:19 97.4 F L 12/25/16 07:00 97.4 F L 59 14 118/54 98 12/25/16 06:00 60 10 116/47 96 12/25/16 05:00 60 12 125/55 98 12/25/16 04:17 97.7 F 12/25/16 04:00 60 12 129/60 97 12/25/16 03:00 60 10 113/44 98 12/25/16 02:00 60 10 110/53 97 12/25/16 01:00 60 12 99/45 96 12/25/16 00:00 70 14 108/59 97 12/24/16 23:26 97.9 F 12/24/16 23:00 60 10 109/63 95 12/24/16 22:00 60 10 130/57 96 12/24/16 21:00 60 16 113/94 97 12/24/16 20:30 62 12 114/57 97 12/24/16 20:00 62 14 107/59 95 12/24/16 19:37 97.9 F 12/24/16 19:30 60 14 119/51 95 12/24/16 19:05 63 15 114/64 97 12/24/16 19:00 71 14 134/38 98 12/24/16 18:55 60 14 107/57 98 12/24/16 18:00 61 15 116/58 100 12/24/16 17:00 56 60 16 125/66 98 12/24/16 16:30 58 60 15 109/68 98 12/24/16 16:00 60 60 14 128/71 99 12/24/16 15:40 65 15 133/77 98 12/24/16 15:25 14 132/98 99 12/24/16 15:10 65 14 137/68 99 12/24/16 15:05 66 13 133/70 98 12/24/16 15:00 66 14 136/76 97 12/24/16 14:55 97.5 F L 75 13 138/68 98 12/24/16 14:45 99 Intake and Output 12/24/16 12/25/16 12/25/16 23:59 07:59 15:59 Intake Total 300 / 300 1295 / 1295 Output Total 450 / 450 500 / 500 225 / 225 Balance -150 / -150 -500 / -500 1070 / 1070 Intake: IV Fluids 1055 / 1055 0.9 % Sodium Chloride 1,000 ML 1055 / 1055 @ 100 mls/hr IVC .Q10H MELISA Rx#: [id number] Oral 300 / 300 240 / 240 Output: Urine 450 / 450 500 / 500 225 / 225 Other: Meal Breakfast Percent of Meal Consumed 90% Stool Size Moderate Stool Characteristics Normal for Patient Stool Color Brown # Voids 1 Weight 77.5 kg - EKG Interpretation EKG results cardiology: personally reviewed Consult Discharge Plan - Plan Referrals: Roberto Rodney, [Primary Care Provider] -
[2016-12-25 12:18] LABS: Basophils # 0.1 K/mcL (0.0-0.2); Basophils % 0.9 %; Eosinophils # 0.1 K/mcL (0.0-0.6); Eosinophils % 1.6 %; Hematocrit 40.1 % (37.5-50.1); Immature Granulocytes % 0.2 % (0-4); Lymphocytes # 1.3 K/mcL (0.6-4.6); Lymphocytes % 24.5 %; Mean Corpuscular HGB Conc 32.4 g/dL (31.6-35.5); Mean Corpuscular Hemoglobin 28.6 pg (28.0-33.3); Mean Corpuscular Volume 88.1 fL (83.0-100.0); Mean Platelet Volume 10.9 fL (9.4-12.4); Monocytes # 0.5 K/mcL (0.0-1.3); Monocytes % 9.9 %; Neutrophils # 3.5 K/mcL (1.6-8.9); Platelet Count 132 K/mcL (140-400); Red Blood Count 4.55 M/mcL (4.19-5.50); Red Cell Distribution Width 14.9 % (11.5-14.5); Segmented Neutrophils % 62.9 %
[2016-12-25] MEDS ORDERED: *HR* Heparin 5,000 UNIT/ML VIAL SQ SCH (12:30)
[2016-12-25 14:14] LABS: BUN/Creatinine Ratio 16 (6-26); Blood Urea Nitrogen 14 mg/dL (8-26); Calcium 10.1 mg/dL (8.6-10.8); Carbon Dioxide 25 mEq/L (19-29); Chloride 110 mEq/L (98-109); Glucose 102 mg/dL (70-99); Osmolality,Calculated 293 (280-300); Potassium 3.9 mEq/L (3.5-4.5); Sodium 141 mEq/L (136-145); eGFR For African Americans > 60 (> 60); eGFR For Non-African Americans > 60 (> 60)
[2016-12-25] MEDS ORDERED: *HR* Rivaroxaban 10 MG TABLET PO SCH ×2 (17:00)
[2016-12-25] MEDS: Metoprolol 100 MG TABLET PO SCH (20:11)
[2016-12-25] MEDS ORDERED: traZODone 50 MG TABLET PO SCH ×2 (21:00)
[2016-12-25] MEDS ORDERED: Cholecalciferol (D-3) 1,000 UNIT TABLET PO SCH ×2 (21:00)
[2016-12-25] MEDS ORDERED: Famotidine 20 MG TABLET PO SCH ×2 (21:00)
[2016-12-26 06:14] LABS: Basophils % 0.7 %; Eosinophils # 0.1 K/mcL (0.0-0.6); Eosinophils % 2.4 %; Hematocrit 39.6 % (37.5-50.1); Hemoglobin 12.7 g/dL (12.9-16.9); Immature Granulocytes % 0.3 % (0-4); Lymphocytes # 1.7 K/mcL (0.6-4.6); Lymphocytes % 29.1 %; Mean Corpuscular HGB Conc 32.1 g/dL (31.6-35.5); Mean Corpuscular Hemoglobin 28.2 pg (28.0-33.3); Mean Platelet Volume 12.1 fL (9.4-12.4); Monocytes # 0.7 K/mcL (0.0-1.3); Monocytes % 11.9 %; Neutrophils # 3.2 K/mcL (1.6-8.9); Platelet Count 128 K/mcL (140-400); Red Cell Distribution Width 14.7 % (11.5-14.5); Segmented Neutrophils % 55.6 %
[2016-12-26 06:15] LABS: INR 3.1; Prothrombin Time 34.5 Seconds (9.4-12.1)
[2016-12-26 06:29] LABS: BUN/Creatinine Ratio 17 (6-26); Blood Urea Nitrogen 14 mg/dL (8-26); Calcium 9.9 mg/dL (8.6-10.8); Carbon Dioxide 23 mEq/L (19-29); Chloride 112 mEq/L (98-109); Glucose 89 mg/dL (70-99); Osmolality,Calculated 294 (280-300); Potassium 3.6 mEq/L (3.5-4.5); Sodium 142 mEq/L (136-145); eGFR For African Americans > 60 (> 60); eGFR For Non-African Americans > 60 (> 60)
[2016-12-26] MEDS: Metoprolol 100 MG TABLET PO SCH (08:31)
[2016-12-26] MEDS: *HR* Ticagrelor 90 MG TABLET PO SCH (08:32)
[2016-12-26] MEDS ORDERED: Aspirin 81 MG TAB.CHEW PO SCH (09:00)
--- NOTE | 2016-12-26 10:44 | Discharge Summary ---
Date of Encounter: 12/26/16 Time of Encounter: 10:44 - Discharge Diagnosis (1) STEMI (ST elevation myocardial infarction) Priority: Primary Status: Acute Comments: Admitted with acute STEMI with ROCIO placed to LAD. Qualifiers: Involved coronary artery: LAD coronary artery Qualified Code(s): I21.02 - ST elevation (STEMI) myocardial infarction involving left anterior descending coronary artery (2) CHF (congestive heart failure) Priority: Secondary Status: Chronic Comments: Known ischemic cardiomyopathy. Has ICD in place. Qualifiers: Congestive heart failure type: unspecified congestive heart failure type Congestive heart failure chronicity: chronic Qualified Code(s): I50.9 - Heart failure, unspecified (3) CAD (coronary artery disease) Priority: Secondary Status: Chronic Comments: Known CAD. Qualifiers: Coronary Disease-Associated Artery/Lesion type: [place] artery [place] vs. transplanted heart: [place] heart Associated angina: without angina Qualified Code(s): I25.10 - Atherosclerotic heart disease of [place] coronary artery without angina pectoris (4) Paroxysmal atrial fibrillation Priority: Secondary Status: Chronic Comments: Had known PAF per review of primary photoresist printer records. - Discharge Medications Prescriptions: Aspirin 81 mg PO DAILY #30 tab.chew Atorvastatin [Lipitor] 80 mg PO HS #30 tablet Losartan [Cozaar] 50 mg PO DAILY #30 tablet Rivaroxaban [Xarelto] 20 mg PO 1700 #30 tablet Ticagrelor [Brilinta] 90 mg PO BID #60 tablet Home Medications: Cholecalciferol (D-3) [Vitamin D] 2,000 unit PO HS 11/06/16 [History] Famotidine [Pepcid] 20 mg PO HS 11/06/16 [History] Metoprolol [Lopressor] 100 mg PO BID 11/06/16 [History] Montelukast [Singulair] 10 mg PO HS 11/06/16 [History] traZODone [TraZODone] 50 mg PO HS 12/24/16 [History] Aspirin 81 mg PO DAILY #30 tab.chew 12/26/16 [Rx] Atorvastatin [Lipitor] 80 mg PO HS #30 tablet 12/26/16 [Rx] Losartan [Cozaar] 50 mg PO DAILY #30 tablet 12/26/16 [Rx] Rivaroxaban [Xarelto] 20 mg PO 1700 #30 tablet 12/26/16 [Rx] Ticagrelor [Brilinta] 90 mg PO BID #60 tablet 12/26/16 [Rx] Allergies/Adverse Reactions: 3 Allergy/AdvReac Type Severity Reaction Status Date / Time No Known Allergies Allergy Verified 11/06/16 07:11 Procedures/tests Complete & Pending: Procedures Performed prior 72 hours Category Date Time Status CL Cardiac Catheterization [CL] Stat Administrative Tech 12/24/16 13:01 Ordered EV echocardiogram Routine Y 12/25/16 11:45 Completed Date of admission: 12/24/16 13:45 Primary care physician: Roberto Rodney DO Consults: 12/25/16 07:50 Consult to Cardiac Rehabilitation-Phase1 [CONS] Routine Comment: Reason for Consult: STEMI Call Completed: No 12/25/16 11:44 consult to laundry housekeeper [Consult to Nutrition] [CONS] Routine Comment: Consulting Provider: NUTRITION Reason for Dietary Consult: Diet Education Discharging clinician: Shanae Viramontes Anticipated date of discharge: 12/26/16 - Patient Status Disposition: Home, Self-Care Condition: Good Functional capacity at discharge: independent ambulation Overall status at discharge: patient is progressing back to baseline - Discharge Instructions Follow Up With: Roberto Rodney DO [Primary Care Provider] - Additional Instructions: RISK FACTORS: STOP SMOKING: If you smoke, STOP. Smoking or tobacco use significantly increases your risk of heart disease because nicotine causes the arteries to narrow or constrict. It also causes fats to stick to the artery. Your chances of having a heart attack are greatly increased if you continue to smoke. For more information, call the education line for smoking cessation 6-588-RTWCQFX EAT A LOW FAT/CHOLESTEROL/SODIUM DIET: This diet may help reduce your chances of having a heart attack. LIFTING: Avoid lifting anything more than 10 pounds for 5-7 days Prior to straining, laughing, sneezing and/or coughing, apply manual pressure directly over insertion site. ACTIVITY: You may walk or climb stairs as tolerated You can resume sexual activity as tolerated In general, you are encouraged to engage in a minimum of 30 minutes or more of moderate intensity physical activity, such as brisk walking, daily or at least 3 -4 times weekly BATHING Do not submerge the site into water (bath tub, hot tub, swimming pool) for 1 week. This can be a source for infection into the blood stream. You may shower after 24 hours SITE CARE: After 24 hours, you may remove the dressing and leave the site open to air. Keep the site clean and dry. Clean gently and pat dry. You can expect bruising and tenderness that gradually resolve within a week or two. Return to work as instructed per your physician Resume driving as instructed per physician Keep all scheduled follow up appointments Resume medications as instructed IMPORTANT: If prescribed a Platelet Aggregation Inhibitor such as, Plavix, Brilinta or Effient: Duration of therapy is minimum one year These medications are often used in combination with Aspirin in prevention of future heart attacks Never discontinue unless consult with your Reinforcing Steel Worker Wire Mesh STROKE (CVA) Risk factors for a stroke are: Age, cigarette smoking, diabetes, excessive alcohol consumption, family history, high blood pressure, overweight, physical inactivity, prior stroke, heart attack, diagnosis of carotid artery stenosis or other artery disease. Warning signs: Sudden numbness or weakness of the face, arm or leg; especially on one side of the body, sudden confusion, trouble speaking or understanding, sudden trouble seeing in one or both eyes, sudden trouble walking, dizziness, loss of balance or coordination, sudden severe headache with no cause. Call 911 or go to the Emergency Room. CONGESTIVE HEART FAILURE: If you have been diagnosed with Congestive Heart Failure (CHF) and your symptoms return, make an appointment with your physician Weigh yourself daily. Notify your physician if you have a weight gain of two or more pounds in one day or five or more pounds in one week. If you experience any difficulty breathing, please call 911 BLEEDING: Although the risk of bleeding is minimal, it can happen. If you have any bleeding from the site, apply firm pressure above the puncture site for 10-15 minutes. If the bleeding does not stop, continue manual pressure and call 911 Contact your physician if: You develop a fever greater than 101 degrees Fahrenheit Your site becomes reddened or has any drainage You have an increase in pain or burning at the site or if a large knot forms at the site. If you experience chest pain, shortness of breath, dizziness, or extreme tiredness, stop the activity and rest. Please notify your physicians office if you experience any of these symptoms and they are not relieved by rest please call 911! - Diet and Activity Activity: increase activity as tolerated Diet: low fat, low cholesterol, low salt diet - Hospital Course Hospital course: Mr. Turner is a 76 year old male who presented to [facility] as STEMI. Patient underwent emergent LHC with ROCIO placed to LAD, official clinical laboratory service teacher report unavailable for review. Per Robert Guthrie CNP's progress note yesterday, bypass grafts patent. Patient denies chest pain or shortness of breath. Patient educated on importance of dual anti-platelet therapy uninterrupted for at least one year with ASA and brilinta. Brilinta assistance card given to patient. TTE this admission with LVEF 25-30%, moderate to severely dilated LV, indeterminate diastolic function, s/p medtronic porcine bioprosthetic mitral valve that demonstrates normal function, borderline pulmonary HTN, apex, apical inferior, mid inferior, basal inferior, apical septal, mid inferior septal, basal inferior septal, apical lateral, mid anterior lateral, basal anterior lateral, and basal anterior septal cole hypokinetic. Other cole not visualized. Per review of primary photoresist printer records, previous TTE with LVEF 35-40%. Known ischemic cardiomyopathy with ICD in place. No arrythmias noted per telemetry. Noted to have atrial paced rhythm with intermittent ventricular pacing. On asa, statin, beta tristan, ARB, and brilinta. Per review of primary photoresist printer records, has paroxysmal atrial fibrillation that was noted on device check. Chads 2 vasc score 5 (age, HTN, CHF, vascular disease). Patient is on xarelto for anticoagulation. Unknown why patient was on 15mg dose, per primary cardiologists note, no adverse effects to medications. Renal function normal. Will send patient home with xarelto 20mg daily. Of note, patient is on triple therapy with asa, brilinta, and xarelto. Educated patient to monitor for bleeding or blood loss. Patient educated to discuss triple therapy continuation with primary photoresist printer. Right groin access site without hematoma. Mild ecchymosis noted. Right groin access site management education given to patient and . Patient educated to call cardiology for any questions. Patient is being set up for appointment with primary photoresist printer, , in one week. Patient is being prepped for discharge home in stable condition. - Time Spent with Patient Total time spent providing and/or coordinating discharge services: Less than 30 minutes Physical Examination Vital Signs, Last 4 Hours Temp Pulse Resp BP Pulse Ox 11/01/17 08:15 67 19 132/70 96 12/26/16 07:20 97.9 F General: Conversant, No Apparent Distress HEENT: Atraumatic, Normocephaly, Mucus Membranes Moist Neck: No JVD, Normal carotid pulses Cardiac: Reg Rate and Rhythm, Normal S1 and S2, No Murmur Lungs: Normal Breath Sounds, No Wheeze, Rales, Rhonchi Neuro: Alert and responsive, No focal deficits noted Abdomen: Soft, Non-Tender Skin: No rashes noted on visualized skin Musculoskeletal: No Chest Wall Tenderness, Other (Right groin access site without hematoma. Mild ecchymosis noted. ) Extremities: No Clubbing, No Cyanosis, No Edema, Normal Pulses
[2016-12-26 13:10] VITALS: BP 121/95
== END 2016-12-26 12:50 | disposition home or self-care (01) | DRG 247 ==
LOC: ICNU 13:45
PROVIDERS: ADMIT Internal Medicine Cardiovascular Disease; ATTEND Internal Medicine Cardiovascular Disease

== ENCOUNTER 2017-05-05 22:43 | Observation (INO) ==
--- NOTE | 2017-05-05 23:03 | Emergency Department Note ---
Disposition Clinical Impression: Defibrillator discharge Chest pain Qualifiers: Chest pain type: unspecified Qualified Code(s): R07.9 - Chest pain, unspecified Disposition: Admitted As Inpatient Time of Disposition: 01:37 General Adult HPI - General Chief complaint: ED Arrhythmia/Palpitations Stated complaint: defib went off Time Seen by Provider: 05/05/17 22:44 Source: patient, EMS Mode of arrival: EMS Limitations: no limitations Nursing Notes Reviewed: Yes Vital Signs Reviewed: Yes - History of Present Illness HPI Narrative: 76-year-old male with significant past medical history of pacemaker/ defibrillator, CAD, previous CABG and recent stent placement less than one year ago presenting to the emergency department with chief complaint of his defibrillator going off. Patient states that approximately 9 PM he is laying in bed when he felt a shock. Patient states his defibrillator has never gone off before. Patient also states evening he started having some chest pain which he took nitroglycerin. It resolves and he decided not to come in for further evaluation. Patient denies any chest pain at this time. He says his chest is sore but otherwise within normal limits. Patient denies shortness of breath, dizziness or any recent illness. Pain Scale: 0 - Related Data Home Medications Medication Instructions Recorded Confirmed Cholecalciferol (D-3) [Vitamin D] 2,000 unit PO DAILY 11/06/16 05/06/17 Metoprolol [Lopressor] 100 mg PO BID 11/06/16 05/06/17 Montelukast [Singulair] 10 mg PO HS 11/06/16 05/06/17 Atorvastatin [Lipitor] 20 mg PO HS 01/07/17 05/06/17 Isosorbide MONOnitrate (24 HR) 15 mg PO HS 03/29/17 05/06/17 [Imdur] Metoclopramide [Reglan] 10 mg PO BID 03/29/17 05/06/17 Rivaroxaban [Xarelto] 15 mg PO 1700 03/29/17 05/06/17 Previous Rx's Medication Instructions Recorded Ticagrelor [Brilinta] 90 mg PO BID #60 tablet 12/26/16 Allergies Allergy/AdvReac Type Severity Reaction Status Date / Time No Known Allergies Allergy Verified 11/06/16 07:11 All systems ED: reviewed and negative except as stated. Cardiovascular: Reports: chest pain Past Medical History - Past Medical History Attestation: Yes The following information was validated with the patient. Medical history: Reports: asthma, CHF, COPD, coronary artery disease, hyperlipidemia, hypertension, myocardial infarction, other Surgical history: Reports: angioplasty/stent, coronary bypass (CABG), LE stent(s ), LE vascular intervention, pacemaker/AICD Psychiatric history: Reports: no psych history - Social History Smoking Status: Former smoker Smokeless Tobacco Status: No Alcohol use: Reports: none Drug use: Reports: none Physical Exam - General Limitations: no limitations General appearance: alert, in no apparent distress - Head Head exam: atraumatic, normocephalic, normal inspection - Eye Eye exam: Present: normal appearance. Absent: scleral icterus, conjunctival injection - ENT ENT exam: normal exam, mucous membranes moist - Neck Neck exam: Present: normal inspection, full ROM. Absent: tenderness, meningismus - Chest Chest inspection: Present: normal inspection, symmetric chest wall rise. Absent : tenderness, rash - Respiratory Respiratory exam: Present: normal lung sounds bilaterally. Absent: respiratory distress, wheezes - Cardiovascular Cardiovascular exam: Present: regular rate, normal rhythm, normal heart sounds - Abdominal Exam Abdominal exam: Present: soft, Non-Tender. Absent: distention, guarding, rebound - Extremities Exam Extremities exam: Present: normal inspection, full ROM - Neurological Exam Neurological exam: Present: alert, oriented X3 - Psychiatric Psychiatric exam: Present: normal affect, normal mood - Skin Skin exam: Present: warm, intact Course Course Narrative: 76-year-old male presenting to the emergency department for defibrillator shock. Patient is alert and oriented 3 in the room with stable vital signs at this time. We will plan chest pain workup along with interrogate the pacemaker/ defibrillator. Disposition pending results. Most likely admission. Patient agrees with this plan. - Reevaluation(s) Reevaluation #1: Patient's BNP mildly elevated. All other laboratory analysis and chest x-ray within normal limits. Interrogation of the pacemaker/defibrillator did show one shock this evening. It was after a run of 16 beats of Vtach. Patient is alert and oriented 3 in the room with stable vital signs. No chest pain at this time. We will plan to admit the patient. I spoke with the hospitalist on- call Dr. Pozo who agrees to accept the patient. I spoke with the commercial light fixture assembler on-call Dr. Godoy who is aware of the patient case in recommends no further medications or workup at this time. Vital Signs Temperature 97.8 F 05/05/17 22:48 Pulse Rate 62 05/05/17 22:48 Respiratory Rate 14 05/05/17 22:48 Blood Pressure 104/63 05/05/17 22:48 O2 Sat by Pulse Oximetry 98 05/05/17 22:48 Temperature 97.6 F 05/06/17 01:10 Pulse Rate 99 05/06/17 01:10 Respiratory Rate 16 05/06/17 01:10 Blood Pressure 136/64 05/06/17 01:10 O2 Sat by Pulse Oximetry 99 05/06/17 01:10 Oxygen Delivery Oxygen Delivery Room Air Medical Decision Making - Lab Data Result diagrams: 05/05/17 22:58 05/05/17 22:58 Lab Results 05/05/17 05/05/17 05/05/17 Range/Units 22:58 22:58 22:58 WBC 6.6 (4.3-11.1) K/mcL RBC 4.56 (4.19-5.50) M/mcL Hgb 13.4 (12.9-16.9) g/dL Hct 41.8 (37.5-50.1) % MCV 91.7 (83.0-100.0) fL MCH 29.4 (28.0-33.3) pg MCHC 32.1 (31.6-35.5) g/dL RDW 15.6 H (11.5-14.5) % Plt Count 124 L (140-400) K/mcL MPV 12.0 (9.4-12.4) fL Immature Gran % 0.8 (0-4) % Seg Neutrophils % 61.4 % Lymphocytes % 24.1 % Monocytes % 11.0 % Eosinophils % 1.8 % Basophils % 0.9 % Neutrophils # 4.0 (1.6-8.9) K/mcL Lymphocytes # 1.6 (0.6-4.6) K/mcL Monocytes # 0.7 (0.0-1.3) K/mcL Eosinophils # 0.1 (0.0-0.6) K/mcL Basophils # 0.1 (0.0-0.2) K/mcL PT 24.0 H (9.4-12.1) Seconds INR 2.2 APTT 37.5 H (26.0-36.0) Seconds Sodium (136-145) mEq/L Potassium (3.5-5.1) mEq/L Chloride (98-107) mEq/L Carbon Dioxide (23-29) mEq/L BUN (8-23) mg/dL Creatinine (0.70-1.30) mg/dL Est GFR ( Amer) (> 60) Est GFR (Non-Af Amer) (> 60) BUN/Creatinine Ratio (6-26) Glucose (70-105) mg/dL Calculated Osmolality (280-300) Calcium (8.6-10.3) mg/dL Magnesium 2.0 (1.6-2.6) mg/dL Troponin I (< 0.04) ng/mL B-Natriuretic Peptide (Less than 100) pg/mL 05/05/17 05/05/17 Range/Units 22:58 22:58 WBC (4.3-11.1) K/mcL RBC (4.19-5.50) M/mcL Hgb (12.9-16.9) g/dL Hct (37.5-50.1) % MCV (83.0-100.0) fL MCH (28.0-33.3) pg MCHC (31.6-35.5) g/dL RDW (11.5-14.5) % Plt Count (140-400) K/mcL MPV (9.4-12.4) fL Immature Gran % (0-4) % Seg Neutrophils % % Lymphocytes % % Monocytes % % Eosinophils % % Basophils % % Neutrophils # (1.6-8.9) K/mcL Lymphocytes # (0.6-4.6) K/mcL Monocytes # (0.0-1.3) K/mcL Eosinophils # (0.0-0.6) K/mcL Basophils # (0.0-0.2) K/mcL PT (9.4-12.1) Seconds INR APTT (26.0-36.0) Seconds Sodium 139 (136-145) mEq/L Potassium 3.7 (3.5-5.1) mEq/L Chloride 109 H (98-107) mEq/L Carbon Dioxide 24 (23-29) mEq/L BUN 18 (8-23) mg/dL Creatinine 0.89 (0.70-1.30) mg/dL Est GFR ( Amer) > 60 (> 60) Est GFR (Non-Af Amer) > 60 (> 60) BUN/Creatinine Ratio 20 (6-26) Glucose 114 H (70-105) mg/dL Calculated Osmolality 291 (280-300) Calcium 10.0 (8.6-10.3) mg/dL Magnesium (1.6-2.6) mg/dL Troponin I < 0.03 (< 0.04) ng/mL B-Natriuretic Peptide 405 H (Less than 100) pg/mL - EKG Data EKG #1 EKG attestation: Yes I reviewed and interpreted this EKG. EKG results narrative: Sinus rhythm with first degree AV block. 62 bpm. NJ interval 297, QRS 141, QTC 404. T-wave inversion noted in I,V2, V3, V4, V5, V6. No signs of acute ST segment elevation.
[2017-05-05 23:18] LABS: Basophils # 0.1 K/mcL (0.0-0.2); Basophils % 0.9 %; Eosinophils # 0.1 K/mcL (0.0-0.6); Eosinophils % 1.8 %; Hematocrit 41.8 % (37.5-50.1); Hemoglobin 13.4 g/dL (12.9-16.9); Immature Granulocytes % 0.8 % (0-4); Lymphocytes # 1.6 K/mcL (0.6-4.6); Lymphocytes % 24.1 %; Mean Corpuscular HGB Conc 32.1 g/dL (31.6-35.5); Mean Corpuscular Hemoglobin 29.4 pg (28.0-33.3); Mean Corpuscular Volume 91.7 fL (83.0-100.0); Monocytes # 0.7 K/mcL (0.0-1.3); Platelet Count 124 K/mcL (140-400); Red Blood Count 4.56 M/mcL (4.19-5.50); Red Cell Distribution Width 15.6 % (11.5-14.5); Segmented Neutrophils % 61.4 %
[2017-05-05 23:23] LABS: INR 2.2
[2017-05-05 23:26] LABS: Activated Partial Thrombo Time 37.5 Seconds (26.0-36.0)
--- NOTE | 2017-05-05 23:30 | Emergency Department Note ---
START Narrative - START START: I examined this patient and my medical decision-making was reviewed with the Resident Physician. I agree with the documented findings, disposition and treatment plan as described except to the extent set forth below. 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 Theodore has a defibrillator and hisotry of CHF. He was at home tonight around 917 and the defibirllation went off, secodnary to medtronic interrgation it appears he had one run of ventricuflar fibrillation/VT that required shock and he has normalzied since then and then it appears there may be some extra fluid per medtronic. Battery and wires are working appropiatley. We will do cardiopulmonary workup and admit to medicine
[2017-05-05 23:43] LABS: BUN/Creatinine Ratio 20 (6-26); Blood Urea Nitrogen 18 mg/dL (8-23); Carbon Dioxide 24 mEq/L (23-29); Chloride 109 mEq/L (98-107); Glucose 114 mg/dL (70-105); Osmolality,Calculated 291 (280-300); Potassium 3.7 mEq/L (3.5-5.1); Sodium 139 mEq/L (136-145); eGFR For African Americans > 60 (> 60); eGFR For Non-African Americans > 60 (> 60)
[2017-05-05 23:44] LABS: Troponin I < 0.03 ng/mL (< 0.04)
--- NOTE | 2017-05-06 02:39 | Internal Med History&Physical ---
Date of Encounter: 05/06/17 Time of Encounter: 02:00 Assessment and Plan (1) Defibrillator discharge Current visit: Yes Status: Acute Patient developed V. tach per AICD interrogation report with appropriate AICD discharge. Will monitor with telemetry for now. Consult cardiology for recommendations. Continue beta tristan. Potassium and magnesium levels are normal. Patient at risk of V. tach/V. fib due to ischemic cardiomyopathy with previous EF of 25-30%. Troponins negative. No ST segment changes on EKG. (2) Essential hypertension Current visit: Yes Status: Chronic Monitor blood pressure. Resume home medications. (3) CAD (coronary artery disease) Current visit: Yes Status: Chronic Continue home medications including Brilinta, Lipitor, Lopressor and Xarelto Qualifiers: Coronary Disease-Associated Artery/Lesion type: [place] artery [place] vs. transplanted heart: hughes heart Associated angina: without angina Qualified Code(s): I25.10 - Atherosclerotic heart disease of [place] coronary artery without angina pectoris (4) Congestive heart failure Current visit: Yes Status: Chronic Patient with history of chronic congestive heart failure and ischemic cardiomyopathy with EF of 25-30% per echo done in November 2016. No signs of decompensation at this time. We will continue home medications. Qualifiers: Heart failure type: combined systolic and diastolic Heart failure chronicity: chronic Qualified Code(s): I50.42 - Chronic combined systolic ( congestive) and diastolic (congestive) heart failure (5) Paroxysmal atrial fibrillation Current visit: Yes Status: Chronic Currently in paced rhythm. On anticoagulation with Xarelto (6) DVT prophylaxis Current visit: Yes Status: Acute Continue Xarelto Internal Medicine - H&P: HPI Chief complaint: AICD discharge Admitted From: Emergency Dept Plans for Post Hospital Care: Home History of present illness: Mr. Turner is a 76 year old male patient with history of ischemic cardiomyopathy, coronary artery disease, prior OR, AICD and permanent pacemaker placement presented to the ER with complaints of AICD discharge. This occurred last night while patient was getting ready for bed. He was lying in his recliner when he was suddenly shocked. He denies any prodrome or lightheadedness prior to this. After the shock, he developed mild chest discomfort. He denies any shortness of breath and no nausea or vomiting. Patient had an AICD and pacemaker placed in 1998. Since then he has never had any AICD discharge. These devices were replaced in 2016. No recent changes to medications. Denies any palpitations. He feels much better now. Past Med Surg Social Fam HX - Past Medical History Attestation: Yes The following information was validated with the patient. Source: patient Medical history: asthma, CHF, COPD, coronary artery disease, hyperlipidemia, hypertension, myocardial infarction, other Psychiatric history: no psych history - Past Surgical History Surgical History: angioplasty/stent, coronary bypass (CABG), LE stent(s), LE vascular intervention, pacemaker/AICD - Social History Smoking Status: Former smoker Smokeless Tobacco Status: No Alcohol use: none Drug use: none - Family History Mother Adopted: No Family Member Ethnicity: Non- Living Status: Age at : 48 Cause of : heart attack Hx Family Cardiac Disorders: Yes Hx Family Respiratory Disorders: Yes Hx Family Neurologic Disorders: Yes (dementia) Internal Medicine - H&P: Meds Cholecalciferol (D-3) [Vitamin D] 2,000 unit PO DAILY 11/06/16 [History] Metoprolol [Lopressor] 100 mg PO BID 11/06/16 [History] Montelukast [Singulair] 10 mg PO HS 11/06/16 [History] Ticagrelor [Brilinta] 90 mg PO BID #60 tablet 12/26/16 [Rx] Atorvastatin [Lipitor] 20 mg PO HS 01/07/17 [History] Isosorbide MONOnitrate (24 HR) [Imdur] 15 mg PO HS 03/29/17 [History] Metoclopramide [Reglan] 10 mg PO BID 03/29/17 [History] Rivaroxaban [Xarelto] 15 mg PO 1700 03/29/17 [History] 3 Allergy/AdvReac Type Severity Reaction Status Date / Time No Known Allergies Allergy Verified 11/06/16 07:11 All Systems PM: A 10-system review of systems was performed and is negative for pertinent findings except as documented above in the HPI. - Constitutional Constitutional: no chills, no fever(s), no night sweats - EENT Eyes: no change in vision, no discharge, no pain, no photophobia Ears: no ear discharge, no ear pain, no tinnitus Nose, mouth and throat: no dysphagia, no nasal discharge, no neck pain, no sore throat - Cardiovascular Cardiovascular ROS IM: chest pain, no diaphoresis, no dyspnea, no lightheadedness, no palpitations, no syncope - Respiratory Respiratory: no cough, no dyspnea, no wheezing, no excessive phlegm production - Gastrointestinal Gastrointestinal: no abdominal pain, no diarrhea, no hematemesis, no hematochezia, no melena, no nausea, no vomiting - Musculoskeletal Musculoskeletal ROS IM: no numbness, no tingling - Integumentary Integumentary IM: no rash, no unusual bruising - Neurological Neurological ROS: no confusion, no convulsions, no focal weakness, no numbness, no tingling, no tremor(s) - Hematologic/Lymphatic Hematologic/Lymphatic: no easy bruising - Constitutional Vitals: Temp Pulse Resp BP Pulse Ox 97.6 F 99 16 136/64 99 05/06/17 01:10 05/06/17 01:10 05/06/17 01:10 05/06/17 01:10 05/06/17 01:10 General appearance: Present: cooperative, A&O X 3, answers questions appropriately - Neck Neck exam general surgery: Present: supple, trachea midline. Absent: lymphadenopathy - Respiratory Respiratory exam: Present: CTAB. Absent: accessory muscle use, rales, rhonchi, wheezes - Cardiovascular Cardiovascular exam: Present: RRR, +S1, +S2. Absent: diastolic murmur, gallop, rubs, systolic murmur - GI/Abdominal GI/Abdominal exam: Present: normal bowel sounds, soft, no peritoneal signs. Absent: distended, tenderness - Extremities Exam Extremities exam: Present: warm, radial pulses palpable and symmetrical. Absent : calf tenderness, cyanotic, pedal edema - Neurological Exam Neurological exam: Present: CN II-XII intact, oriented X3, no focal deficits. Absent: facial droop, speech deficit - Skin Skin exam: Present: dry, intact Internal Med - H&P Results - Labs CBC & Chem 7: 05/05/17 22:58 05/05/17 22:58 - EKG Data -: EKG Interpreted by Myself - EKG Data EKG comments: 05/06/17 02:54 Atrial paced rhythm with first degree AV block - Impressions Impressions Chest X-Ray 05/05/17 22:48 IMPRESSION: No focal airspace consolidation. D/ / Rajinder Etienne MD / Rajinder Etienne MD Interpreting Provider: Rajinder Etienne MD
[2017-05-06] MEDS ORDERED: Acetaminophen 325 MG TABLET PO PRN (02:59)
[2017-05-06] MEDS ORDERED: Naloxone 0.4 MG/ML INJ IVP PRN (02:59)
--- NOTE | 2017-05-06 07:38 | Internal Med Progress Note ---
Date of Encounter: 05/06/17 Time of Encounter: 07:38 - Subjective Interval history: HPI: (From H&P) Mr. Turner is a 76 year old male patient with history of ischemic cardiomyopathy, coronary artery disease, prior CA, AICD and permanent pacemaker placement presented to the ER with complaints of AICD discharge. This occurred last night while patient was getting ready for bed. He was lying in his recliner when he was suddenly shocked. He denies any prodrome or lightheadedness prior to this. After the shock, he developed mild chest discomfort. He denies any shortness of breath and no nausea or vomiting. Patient had an AICD and pacemaker placed in 1998. Since then he has never had any AICD discharge. These devices were replaced in 2016. No recent changes to medications. Denies any palpitations. He feels much better now. Interval changes: Assessment and Plan (1) Defibrillator discharge Current visit: Yes Status: Acute Patient developed V. tach per AICD interrogation report with appropriate AICD discharge. Will monitor with telemetry for now. Consult cardiology for recommendations. Continue beta tristan. Potassium and magnesium levels are normal. Patient at risk of V. tach/V. fib due to ischemic cardiomyopathy with previous EF of 25-30%. Troponins negative. No ST segment changes on EKG. (2) Essential hypertension Current visit: Yes Status: Chronic Monitor blood pressure. Resume home medications. (3) CAD (coronary artery disease) Current visit: Yes Status: Chronic Continue home medications including Brilinta, Lipitor, Lopressor and Xarelto Qualifiers: Coronary Disease-Associated Artery/Lesion type: [place] artery [place] vs. transplanted heart: council heart Associated angina: without angina Qualified Code(s): I25.10 - Atherosclerotic heart disease of [place] coronary artery without angina pectoris (4) Congestive heart failure Current visit: Yes Status: Chronic Patient with history of chronic congestive heart failure and ischemic cardiomyopathy with EF of 25-30% per echo done in November 2016. No signs of decompensation at this time. We will continue home medications. Qualifiers: Heart failure type: combined systolic and diastolic Heart failure chronicity: chronic Qualified Code(s): I50.42 - Chronic combined systolic ( congestive) and diastolic (congestive) heart failure (5) Paroxysmal atrial fibrillation Current visit: Yes Status: Chronic Currently in paced rhythm. On anticoagulation with Xarelto (6) DVT prophylaxis Continue Xarelto - Constitutional Vitals: Temp Pulse Resp BP Pulse Ox 97.6 F 61 16 112/57 96 05/06/17 06:41 05/06/17 06:41 05/06/17 06:41 05/06/17 06:41 05/06/17 06:41 General appearance: Present: cooperative, A&O X 3, answers questions appropriately - Head Head exam: Present: atraumatic, normocephalic - Eye Eye exam: Present: PERRL, conjuntiva pink, sclera anicteric Pupils: Present: PERRL - Neck Neck exam general surgery: Present: supple, trachea midline. Absent: lymphadenopathy - Respiratory Respiratory exam: Present: CTAB. Absent: accessory muscle use, rales, rhonchi, wheezes - Cardiovascular Cardiovascular exam: Present: RRR, +S1, +S2. Absent: diastolic murmur, gallop, rubs, systolic murmur - GI/Abdominal GI/Abdominal exam: Present: normal bowel sounds, soft, no peritoneal signs. Absent: distended, tenderness - Extremities Exam Extremities exam: Present: warm, radial pulses palpable and symmetrical. Absent : calf tenderness, cyanotic, pedal edema - Neurological Exam Neurological exam: Present: CN II-XII intact, oriented X3, no focal deficits. Absent: pronater drift, facial droop, speech deficit - Skin Skin exam: Present: dry, intact Internal Medicine: Result - Labs CBC & Chem 7: 05/05/17 22:58 05/05/17 22:58 - ABG Interpretation ABG results: PT/INR, D-dimer PT 24.0 Seconds (9.4-12.1) H 05/05/17 22:58 Consult Discharge Plan - Plan Referrals: Roberto Rodney DO [Primary Care Provider] -
[2017-05-06] MEDS: Metoprolol 100 MG TABLET PO SCH ×2 (08:31→22:33)
[2017-05-06] MEDS: Cholecalciferol (D-3) 1,000 UNIT TABLET PO SCH (08:31)
[2017-05-06] MEDS: *HR* Ticagrelor 90 MG TABLET PO SCH ×2 (08:31→22:33)
--- NOTE | 2017-05-06 10:25 | Cardiology Consult Note ---
Addendum entered and electronically signed by Guerrero Fortune CNP 05/06/17 11:02: Full device interrogation received. VT/VF episode with 1 successful shock. Also reports having LHC at [place] since his [facility] 11/2016. Reports no intervention on [facility] at [place], but that there was significant disease noted. Requesting records from [place]. Original Note: <Guerrero Fortune - Last Filed: 05/06/17 10:37> Date of Encounter: 05/06/17 Time of Encounter: 10:25 Assessment and Plan (1) Defibrillator discharge Current Visit: Yes Status: Acute ICD inserted in 1998 for ICMP, gen changes since that time. This is the first shock pt has ever received. Denies any prodromal symptoms. Had chest soreness after shock, since resolved. No chest pain otherwise. Troponin negative. No new ischemic EKG changes. Report states for VT/VF, but full report not available and rhythm strip not attached. Will contact Georgina Goodman to obtain full report. EF known to be 25-30% on echo 11/2016. STEMI at that time with [facility] that showed 2 /2 patent bypass grafts, ROCIO to mLCx. Continue BB--Lopressor 100mg BID. Mag and K within normal range. Check echo to re-evaluate structure and function. Will discuss with Dr. Paniagua on if any further testing or med changes are warranted. (2) Cardiomyopathy Current Visit: Yes Status: Acute ICMP EF 25-30%, hx of CABG and PCI. ICD in place. Pt euvolemic on exam. Continue BB. No ACEi d/t borderline BP. Qualifiers: Cardiomyopathy type: ischemic Qualified Code(s): I25.5 - Ischemic cardiomyopathy (3) CAD (coronary artery disease) Current Visit: Yes Status: Chronic Hx of CABG and PCI. STEMI 11/2016 2/2 patent bypass grafts, ROCIO to mLCx. Continue Statin, BB, Brilinta--denies any missed doses. ASA was previously stopped due to pt also being on Xarelto for PAF. Qualifiers: Coronary Disease-Associated Artery/Lesion type: [place] artery [place] vs. transplanted heart: [place] heart Associated angina: without angina Qualified Code(s): I25.10 - Atherosclerotic heart disease of [place] coronary artery without angina pectoris (4) Paroxysmal atrial fibrillation Current Visit: Yes Status: Chronic PAF. Currently SR. Continue BB and Xarelto. Discussion w patient/family: The assessment and plan as outlined above was discussed with the patient and/or family members who expressed understanding and agreement. All questions were answered. Thank you for involving us in the care of your patient. Please call with any questions. I will discuss all the above with Dr. Paniagua and make changes as necessary. History of Present Illness Consult date: 05/06/17 Requesting physician: Deepa Pozo Consult reason: ICD discharge Chief complaint: none History of present illness: Mr. Turner is a 76 year old male with PMH of ICMP EF 25%, CAD with hx of CABG and PCI, prior [place] (STEMI 11/2016), AICD, bioprosthetic MV, PAF on xarelto that presented to the ER with complaints of AICD discharge. This occurred last night while patient was getting ready for bed. He was lying in his recliner when he was suddenly shocked. He denies any prodrome or lightheadedness prior to this. After the shock, he developed mild chest discomfort/soreness that since resolved. He denies any shortness of breath and no nausea or vomiting. He denies lower extremity edmea. ICD was initially inserted in 1998 and this is his first ICD shock. Denies any missed doses of medication. Prior CV testing: C 12/24/16: Severe 3V CAD. There is severe LV Dysfunction EF 25%. S/P CABG 2 of 2 patent bypass grafts. Patient had successful Drug-Eluting Stent placement in the mid Circ. TTE 12/25/16: Impressions: LVEF 25-30%. Severe LV systolic dysfunction. Multiple LV segments were not well visualized. Consider use of Definity for future studies. Moderate to severely dilated LV. Indeterminate diastolic function. RV is probably normal in size and function. 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 Borderline pulmonary hypertension. Past Med Surg Social Fam HX - Past Medical History Medical history: asthma, atrial fibrillation, cardiomyopathy, CHF, COPD, coronary artery disease, hyperlipidemia, hypertension, myocardial infarction, other Psychiatric history: no psych history - Past Surgical History Surgical History: angioplasty/stent, coronary bypass (CABG), LE stent(s), LE vascular intervention, pacemaker/AICD - Social History Smoking Status: Former smoker Smokeless Tobacco Status: No Alcohol use: none Drug use: none - Family History Mother Adopted: No Family Member Ethnicity: Non- Living Status: Age at : 48 Cause of : heart attack Hx Family Cardiac Disorders: Yes Hx Family Respiratory Disorders: Yes Hx Family Neurologic Disorders: Yes (dementia) Medications and Allergies Cholecalciferol (D-3) [Vitamin D] 2,000 unit PO DAILY 11/06/16 [History] Metoprolol [Lopressor] 100 mg PO DAILY 11/06/16 [History] Montelukast [Singulair] 10 mg PO HS 11/06/16 [History] Ticagrelor [Brilinta] 90 mg PO BID #60 tablet 12/26/16 [Rx] Atorvastatin [Lipitor] 20 mg PO HS 01/07/17 [History] Isosorbide MONOnitrate (24 HR) [Imdur] 15 mg PO HS 03/29/17 [History] Rivaroxaban [Xarelto] 15 mg PO 1700 03/29/17 [History] 3 Allergy/AdvReac Type Severity Reaction Status Date / Time No Known Allergies Allergy Verified 05/06/17 10:17 All Systems Review: The remainder of the systems were reviewed and are negative Physical Examination Vital Signs, Last 4 Hours Temp Pulse Resp BP Pulse Ox 05/06/17 06:41 97.6 F 61 16 112/57 96 Vital Signs Temp Pulse Resp BP Pulse Ox 05/06/17 06:41 97.6 F 61 16 112/57 96 05/06/17 03:52 97.6 F 59 16 109/61 98 05/06/17 01:10 97.6 F 99 16 136/64 99 05/06/17 01:00 18 119/53 05/05/17 22:48 97.8 F 62 14 104/63 98 Intake and Output 05/05/17 05/06/17 05/06/17 23:59 07:59 15:59 Intake Total 0 / 0 360 / 360 Output Total 0 / 0 Balance 0 / 0 360 / 360 Intake: Oral 0 / 0 360 / 360 Output: Urine 0 / 0 Other: Meal Breakfast Percent of Meal Consumed 50% # Voids 1 Weight 76.657 kg 74.8 kg Patient Weight 05/06/17 23:59 Weight 74.8 kg General: Conversant, No Apparent Distress HEENT: Atraumatic, Normocephaly, Mucus Membranes Moist Neck: No JVD, Normal carotid pulses Cardiac: Reg Rate and Rhythm, Normal S1 and S2, No Murmur Lungs: Normal Breath Sounds, No Wheeze, Rales, Rhonchi Neuro: Alert and responsive, No focal deficits noted Abdomen: Soft, Non-Tender Skin: No rashes noted on visualized skin Musculoskeletal: No Chest Wall Tenderness Extremities: No Clubbing, No Cyanosis, No Edema, Normal Pulses Results 05/05/17 22:58 05/05/17 22:58 Short CBC 05/05/17 Range/Units 22:58 WBC 6.6 (4.3-11.1) K/mcL Hgb 13.4 (12.9-16.9) g/dL Hct 41.8 (37.5-50.1) % Plt Count 124 L (140-400) K/mcL Neutrophils # 4.0 (1.6-8.9) K/mcL BMP 05/05/17 Range/Units 22:58 Sodium 139 (136-145) mEq/L Potassium 3.7 (3.5-5.1) mEq/L Chloride 109 H (98-107) mEq/L Carbon Dioxide 24 (23-29) mEq/L BUN 18 (8-23) mg/dL Creatinine 0.89 (0.70-1.30) mg/dL Glucose 114 H (70-105) mg/dL Calcium 10.0 (8.6-10.3) mg/dL Cardiac Enzymes 05/05/17 Range/Units 22:58 Troponin I < 0.03 (< 0.04) ng/mL Impressions Chest X-Ray 05/05/17 22:48 IMPRESSION: No focal airspace consolidation. D/ / Rajinder Etienne MD / Rajinder Etienne MD Interpreting Provider: Rajinder Etienne MD Active Medications Acetaminophen (Tylenol) 650 mg PO Q6HR PRN PRN Reason: Mild Pain/Fever Stop: 11/05/17 03:00 Atorvastatin Calcium (Lipitor) 20 mg PO HS MELISA Stop: 11/05/17 21:01 Isosorbide Mononitrate (Imdur) 15 mg PO HS MELISA Stop: 11/05/17 21:01 Metoclopramide HCl (Reglan) 10 mg PO BID MELISA Stop: 11/05/17 09:01 Last Admin: 05/06/17 08:34 Dose: Not Given Metoprolol Tartrate (Lopressor) 100 mg PO BID MELISA Stop: 11/05/17 09:01 Last Admin: 05/06/17 08:31 Dose: 100 mg Montelukast Sodium (Singulair) 10 mg PO HS [facility] Stop: 11/05/17 21:01 Naloxone HCl (Narcan) 0.4 mg IVP Q2MIN PRN PRN Reason: SEE COMMENTS Stop: 11/05/17 03:00 Rivaroxaban (Xarelto) 15 mg PO 1700 [facility] Stop: 11/05/17 17:01 Ticagrelor (Brilinta) 90 mg PO BID MELISA Stop: 11/05/17 09:01 Last Admin: 05/06/17 08:31 Dose: 90 mg Vitamin D (Vitamin D) 1,000 unit PO DAILY MELISA Stop: 11/05/17 09:01 Last Admin: 05/06/17 08:31 Dose: 1,000 unit - Imaging and Cardiology Echo: report reviewed - EKG Interpretation EKG results cardiology: personally reviewed (SR, first degree block. Old lateral and inferior MIs), other (12 hr tele AVG HR 61, no VT noted) Consult Discharge Plan - Plan Referrals: Roberto Rodney, DO [Primary Care Provider] - <Philomena Paniagua - Last Filed: 05/06/17 11:38> Date of Encounter: 05/06/17 - Attending Attestation 76 YOM with extensive hx of CAD presents after ICD fired for VFib last night. Patient does have extensive hx of CAD with significant small vessel disease not amenable to PCI. Last PCI of the CIRC with excellent angiographic results ( robert raman/danisha lewis), and a LHC at [facility] after PCI with no further PCI. ICM with EF 25-30% Small vessel disease not amenable to PCI (recent PCI of the CIRC and LHC at [facility] with no options for PCI) S/P ICD with appropriate ICD firing failed ATP On BB and Imdur Plan Titrate up Imdur Start Ranexa as patient had one other episode of chest pain x 1 week ago Consider amiodarone if any further episodes or if continues to have CP Assessment and Plan Discussion w patient/family: The assessment and plan as outlined above was discussed with the patient and/or family members who expressed understanding and agreement. All questions were answered. Thank you for involving us in the care of your patient. Please call with any questions. History of Present Illness History of present illness: Mr. Turner is a 76 year old male All Systems Review: The remainder of the systems were reviewed and are negative Physical Examination Vital Signs, Last 4 Hours Temp Pulse Resp BP Pulse Ox 05/06/17 10:49 97.5 F L 60 16 115/65 96 Results 05/05/17 22:58 05/05/17 22:58
[2017-05-06] MEDS ORDERED: *HR* Rivaroxaban 15 MG TABLET PO SCH (17:00)
--- NOTE | 2017-05-06 20:20 | Electrocardiograph Report ---
[address] [place] [address] Test Date: 2017-05-05 Pat Name: Blaise Turner Department: 104 Room: 2NE16 Gender: M Tracer Clerk: WANDA : 1940 Requested By: Prisca Ceballos Order Number: [id number] Reading MD: Yousif Huang MD Measurements Intervals [place] Rate: 62 P: 37 TN: 297 QRS: -24 QRSD: 141 T: 153 QT: 399 QTc: 404 Interpretive Statements SINUS RHYTHM WITH FIRST DEGREE AV BLOCK INTRAVENTRICULAR CONDUCTION DELAY INFERIOR MYOCARDIAL INFARCTION, PROBABLY OLD ANTERIOR ISCHEMIA Electronically Signed On 05-06-2017 20:18:52 EDT by Yousif Huang MD
[2017-05-06] MEDS ORDERED: Isosorbide MONOnitrate (24 HR) 30 MG TAB.ER.24H PO SCH (21:00)
[2017-05-07] MEDS: Metoprolol 100 MG TABLET PO SCH (10:03)
[2017-05-07] MEDS: *HR* Ticagrelor 90 MG TABLET PO SCH (10:03)
[2017-05-07] MEDS: Cholecalciferol (D-3) 1,000 UNIT TABLET PO SCH (10:04)
[2017-05-07] MEDS ORDERED: Ranolazine 500 MG TAB.ER.12H PO SCH (10:30)
[2017-05-07 10:32] VITALS: BP 118/65
--- NOTE | 2017-05-07 11:40 | Cardiology Progress Note ---
Date of Encounter: 05/07/17 Time of Encounter: 11:36 Assessment and Plan (1) Defibrillator discharge Current Visit: Yes Status: Acute ICD inserted in 1998 for ICMP, gen changes since that time. This is the first shock pt has ever received. Denies any prodromal symptoms. Had chest soreness after shock, since resolved. Admits to chest pain episode approximately 1 week ago. Troponin negative. No new ischemic EKG changes. Interrogation report shows 1 shock for VT/VF. EF known to be 25-30% on echo 11/2016. STEMI at that time with [facility] that showed 2 /2 patent bypass grafts, ROCIO to mLCx. Limited TTE yesterday EF unchanged, 30%. Per pt, had LHC more recently at [place] without intervention. Records requested, but not yet received. Continue BB--Lopressor 100mg BID. Mag and K within normal range. Discussed with Dr. Paniagua and Dr. Cruz Godoy. No further work-up warranted at this time. Cardiology signing off. Reconsult PRN. Follow-up with Dr. Adams in 1- 2 weeks as outpt. (2) Cardiomyopathy Current Visit: Yes Status: Acute ICMP EF 25-30%, hx of CABG and PCI. ICD in place. Pt euvolemic on exam. Continue BB. No ACEi d/t borderline BP. Qualifiers: Cardiomyopathy type: ischemic Qualified Code(s): I25.5 - Ischemic cardiomyopathy (3) CAD (coronary artery disease) Current Visit: Yes Status: Chronic Hx of CABG and PCI. STEMI 11/2016 2/2 patent bypass grafts, ROCIO to mLCx. Continue Statin, BB, Brilinta--denies any missed doses. ASA was previously stopped due to pt also being on Xarelto for PAF. Continue Imdur. Given one episode of chest pain last week, will add Ranexa 500mg BID. Qualifiers: Coronary Disease-Associated Artery/Lesion type: [place] artery [place] vs. transplanted heart: [place] heart Associated angina: without angina Qualified Code(s): I25.10 - Atherosclerotic heart disease of [place] coronary artery without angina pectoris (4) Paroxysmal atrial fibrillation Current Visit: Yes Status: Chronic PAF. Currently SR. Continue BB and Xarelto. Discussion w patient/family: The assessment and plan as outlined above was discussed with the patient and/or family members who expressed understanding and agreement. All questions were answered. Thank you for involving us in the care of your patient. Please call with any questions. I will discuss all the above with Dr. Paniagua and make changes as necessary. Subjective Principal diagnosis: ICD shock Interval history: TTE resulted. LVEF 30%. Severe global LV systolic dysfunction with regional variations involving the basal-mid inferior and inferolateral cole. Moderately dilated left ventricle. Indeterminate diastolic function. RV is suboptimally visualized. S/p #29 Medtronic porcine bioprosthetic mitral valve demonstrating normal function. Mild aortic regurgitation. No pulmonary hypertension by TR gradient. IVC is not well visualized. [place] records not yet received. Pt denies chest pain or dyspnea overnight. No acute complaints. Objective Vital Signs, Last 4 Hours Temp Pulse Resp BP Pulse Ox 05/07/17 10:30 97.4 F L 61 16 118/65 97 Vital Signs Temp Pulse Resp BP Pulse Ox 05/07/17 10:30 97.4 F L 61 16 118/65 97 05/07/17 06:43 97.4 F L 63 16 127/65 96 05/07/17 04:00 97.8 F 60 15 107/42 97 05/06/17 20:00 97.6 F 59 16 134/60 97 05/06/17 19:39 99 05/06/17 15:08 97.5 F L 65 16 130/59 99 Intake and Output 05/06/17 05/07/17 05/07/17 23:59 07:59 15:59 Intake Total 240 / 240 200 / 200 240 / 240 Output Total 0 / 0 700 / 700 100 / 100 Balance 240 / 240 -500 / -500 140 / 140 Intake: Oral 240 / 240 200 / 200 240 / 240 Output: Urine 0 / 0 700 / 700 100 / 100 Other: Meal Dinner Breakfast Percent of Meal Consumed 75% 100% # Voids 1 Weight 73.5 kg Patient Weight 05/07/17 23:59 Weight 73.5 kg General: Conversant, No Apparent Distress HEENT: Atraumatic, Normocephaly, Mucus Membranes Moist Neck: No JVD, Normal carotid pulses Cardiac: Reg Rate and Rhythm, Normal S1 and S2, No Murmur Lungs: Normal Breath Sounds, No Wheeze, Rales, Rhonchi Neuro: Alert and responsive, No focal deficits noted Abdomen: Soft, Non-Tender Skin: No rashes noted on visualized skin Musculoskeletal: No Chest Wall Tenderness Extremities: No Clubbing, No Cyanosis, No Edema, Normal Pulses Results 05/05/17 22:58 05/05/17 22:58 Impressions Echocardiogram 05/06/17 10:51 Impressions: LVEF 30%. Severe global LV systolic dysfunction with regional variations involving the basal-mid inferior and inferolateral cole. Moderately dilated left ventricle. Indeterminate diastolic function. RV is suboptimally visualized. S/p #29 Medtronic porcine bioprosthetic mitral valve demonstrating normal function. Mild aortic regurgitation. No pulmonary hypertension by TR gradient. IVC is not well visualized. Left Ventricular Wall Motion: Rest Echo Findings The apex, apical inferior, mid inferior, basal inferior, apical anterior, mid anterior, basal anterior, apical septal, mid inferior septal, basal inferior septal, apical lateral, mid anterior lateral, basal anterior lateral, mid anterior septal, mid inferior lateral and basal anterior septal cole were hypokinetic. 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 Findings: Study Quality * Technically adequate exam. ECG Findings * Probable paced rhythm. Left Ventricle * Moderately dilated left ventricle. * Indeterminate diastolic function. * LVEF 30%. Right Ventricle * RV is suboptimally visualized. Left Atrium * Severely dilated left atrium. Right Atrium * Normal right atrial size. Aortic Valve * Aortic valve not well visualized. * Mild aortic regurgitation. * No aortic stenosis. Mitral Valve * S/p #29 Medtronic mosaic porcine bioprosthetic mitral valve. * Trivial central mitral regurgitation. * No prosthetic mitral stenosis. E < 1.9cm/s, PHT < 130ms, MG 6 mmHg at 61 bpm (similar to prior echo 12/25/2016). Tricuspid Valve * Tricuspid valve not well visualized. * Trace tricuspid regurgitation. Pulmonic Valve * Pulmonic valve is not well visualized. * No pulmonic stenosis. * No pulmonic regurgitation. Pulmonary Artery * Pulmonary artery not well visualized. Aorta * Not well visualized. Pericardium * There is no pericardial effusion present. Interatrial Septum * Interatrial septum not well evaluated. IVC * The IVC is not well evaluated. Device lead * A device lead was visualized in the right atrium and right ventricle. Active Medications Acetaminophen (Tylenol) 650 mg PO Q6HR PRN PRN Reason: Mild Pain/Fever Stop: 11/05/17 03:00 Atorvastatin Calcium (Lipitor) 20 mg PO HS MELISA Stop: 11/05/17 21:01 Last Admin: 05/06/17 22:33 Dose: 20 mg Isosorbide Mononitrate (Imdur) 15 mg PO HS MELISA Stop: 11/05/17 21:01 Last Admin: 05/06/17 22:33 Dose: 15 mg Metoprolol Tartrate (Lopressor) 100 mg PO BID MELISA Stop: 11/05/17 09:01 Last Admin: 05/07/17 10:03 Dose: 100 mg Montelukast Sodium (Singulair) 10 mg PO HS MELISA Stop: 11/05/17 21:01 Last Admin: 05/06/17 22:33 Dose: 10 mg Naloxone HCl (Narcan) 0.4 mg IVP Q2MIN PRN PRN Reason: SEE COMMENTS Stop: 11/05/17 03:00 Polyethylene Glycol (Miralax) 17 gm PO DAILY MELISA Stop: 11/05/17 12:01 Last Admin: 05/07/17 10:04 Dose: 17 gm Ranolazine (Ranexa) 500 mg PO BID MELISA Stop: 11/06/17 10:31 Rivaroxaban (Xarelto) 15 mg PO 1700 MELISA Stop: 11/05/17 17:01 Last Admin: 05/06/17 17:29 Dose: 15 mg Ticagrelor (Brilinta) 90 mg PO BID MELISA Stop: 11/05/17 09:01 Last Admin: 05/07/17 10:03 Dose: 90 mg Vitamin D (Vitamin D) 1,000 unit PO DAILY MELISA Stop: 11/05/17 09:01 Last Admin: 05/07/17 10:04 Dose: 1,000 unit - Imaging and Cardiology Echo: report reviewed - EKG Interpretation EKG results cardiology: other (12 hr tele AVG HR 61) Consult Discharge Plan - Plan Referrals: Roberto Rodney, DO [Primary Care Provider] -
--- NOTE | 2017-05-07 14:58 | Discharge Summary ---
Date of Encounter: 05/07/17 Time of Encounter: 14:56 - Discharge Diagnosis (1) Defibrillator discharge Priority: Primary Status: Resolved (2) Cardiomyopathy Priority: Secondary Status: Chronic Qualifiers: Cardiomyopathy type: ischemic Qualified Code(s): I25.5 - Ischemic cardiomyopathy (3) CAD (coronary artery disease) Priority: Secondary Status: Chronic Qualifiers: Coronary Disease-Associated Artery/Lesion type: [place] artery [place] vs. transplanted heart: [place] heart Associated angina: without angina Qualified Code(s): I25.10 - Atherosclerotic heart disease of [place] coronary artery without angina pectoris (4) Essential hypertension Priority: Secondary Status: Chronic (5) Paroxysmal atrial fibrillation Priority: Secondary Status: Chronic (6) DVT prophylaxis Priority: Secondary Status: Acute Hospital course: Mr. Turner is a 76 year old male admitted for AICD discharge due to V. tach. He was admitted for observation with telemetry. Troponin was negative and EKG showed no new ischemic changes. Cardiology was consulted and saw patient. Medtronic device interrogation was performed and confirmed V tach and shock. Repeat ECHO was obtained, and showed unchanged EF of 30%. Cardiology determined that no further workup is warranted at this time. They added ranexa to his home medications for chest pain. They recommended that he continue all other home medications. He will follow up with rn gastroenterology Dr. Adams as outpatient in 1-2 weeks after discharge. He will follow up with PCP in 2-3 days after discharge. Patient has met maximum benefit of this hospitalization and will be discharged home in stable condition. Discharge discussed with: patient, family, nurse, case management, other ( Pharmacist) - Time Spent with Patient Total time spent providing and/or coordinating discharge services: Greater than 30 minutes - Discharge Medications Prescriptions: Ranolazine [Ranexa] 500 mg PO BID 14 Days #28 tab.er.12h Home Medications: Cholecalciferol (D-3) [Vitamin D] 2,000 unit PO DAILY 11/06/16 [History] Metoprolol [Lopressor] 100 mg PO DAILY 11/06/16 [History] Montelukast [Singulair] 10 mg PO HS 11/06/16 [History] Ticagrelor [Brilinta] 90 mg PO BID #60 tablet 12/26/16 [Rx] Atorvastatin [Lipitor] 20 mg PO HS 01/07/17 [History] Isosorbide MONOnitrate (24 HR) [Imdur] 15 mg PO HS 03/29/17 [History] Rivaroxaban [Xarelto] 15 mg PO 1700 03/29/17 [History] Ranolazine [Ranexa] 500 mg PO BID 14 Days #28 tab.er.12h 05/07/17 [Rx] Allergies/Adverse Reactions: 3 Allergy/AdvReac Type Severity Reaction Status Date / Time No Known Allergies Allergy Verified 05/06/17 10:17 Date of admission: 05/06/17 00:47 Primary care physician: Roberto Rodney DO Consults: Cardiology Discharging clinician: Amish Tolentino Anticipated date of discharge: 05/07/17 - Constitutional Vitals: Temp Pulse Resp BP Pulse Ox 97.4 F L 61 16 118/65 97 05/07/17 10:30 05/07/17 10:30 05/07/17 10:30 05/07/17 10:30 05/07/17 10:30 General appearance: Present: cooperative, A&O X 3, answers questions appropriately - Head Head exam: Present: atraumatic, normocephalic - Respiratory Respiratory exam: Present: CTAB. Absent: accessory muscle use, rales, rhonchi, wheezes Additional comments: Normal WOB - Cardiovascular Cardiovascular exam: Present: RRR, +S1, +S2. Absent: diastolic murmur, gallop, rubs, systolic murmur Additional comments: No BLE edema - GI/Abdominal GI/Abdominal exam: Present: normal bowel sounds, soft. Absent: distended, hepatomegaly, mass, splenomegaly, tenderness - Psychiatric Psychiatric exam: Present: normal affect, normal mood. Absent: anxious, depressed - Skin Skin exam: Present: dry, intact, warm. Absent: cyanosis, rash - Patient Status Disposition: Home, Self-Care Condition: Good Functional capacity at discharge: independent ambulation Overall status at discharge: patient is back to baseline - Discharge Instructions Instructions: Atrial Fibrillation (DC), Chest Pain (DC) Follow Up With: Shauna Hughes, ADVERTISING COLUMNIST [Advanced Practice Nurse] - 05/14/17 12:30 pm Roberto Rodney DO [Primary Care Provider] - Additional Instructions: Follow up with PCP in 2-3 days after discharge. Follow up with cardiology Dr. Adams in 1-2 weeks after discharge. - Diet and Activity Activity: resume usual activities as tolerated Diet: advance to your usual diet - VTE Contraindication No Overlap Therapy: Admin of oral Factor Xa Inhibitor
== END 2017-05-07 16:50 | disposition home or self-care (01) ==
LOC: 2NENU 22:43 → EMEROO 22:43 → 2NENU 05-06 01:00
PROVIDERS: ADMIT Internal Medicine; ATTEND Internal Medicine

== ENCOUNTER 2017-06-22 22:48 | Inpatient (IN) ==
--- NOTE | 2017-06-22 23:20 | Emergency Department Note ---
Disposition Clinical Impression: NSTEMI (non-ST elevated myocardial infarction), V-tach, Elevated troponin Chest pain Qualifiers: Chest pain type: unspecified Qualified Code(s): R07.9 - Chest pain, unspecified Disposition: Admitted As Inpatient Condition: Undetermined Referrals: Roberto Rodney DO [Primary Care Provider] - Forms: ED Satisfaction Letter Chest Pain HPI - General Chief Complaint: ED Chest Pain Stated Complaint: Chest Pain Time Seen by Provider: 06/22/17 22:53 Source: patient, EMS Mode of arrival: EMS Limitations: no limitations Vital Signs Reviewed: Yes Nursing Notes Reviewed: Yes - History of Present Illness HPI Narrative: 76-year-old male with history of congestive heart failure with an EF of 25% on sotalol with previous CABG, arrives as a transfer from [facility] for concern for STEMI. Armored Vehicle Officer felt as though this was not a STEMI at the time and felt this was a tracheal tachycardia. The patient in route was noted to be hypotensive with a blood pressure in the 80s systolic. The patient was given fluids and arrives to the emergency department with a systolic blood pressure 118. The patient is mentating appropriately at this time. He admits to 9 out of 10 retrosternal chest pain. He is mildly tachycardic with a heart rate in the 120s. The patient denies any difficulty breathing. EKG demonstrates findings consistent with ventricular tachycardia per catalog librarian. Recommended sedation and shock the patient. Severity scale (1-10): 9 - Related Data Home Medications Medication Instructions Recorded Confirmed Cholecalciferol (D-3) [Vitamin D] 2,000 unit PO DAILY 11/06/16 05/26/17 Metoprolol [Lopressor] 100 mg PO BID 11/06/16 05/26/17 Montelukast [Singulair] 50 mg PO HS 11/06/16 05/26/17 Atorvastatin [Lipitor] 20 mg PO HS 01/07/17 05/26/17 Isosorbide MONOnitrate (24 HR) 30 mg PO HS 03/29/17 05/26/17 [Imdur] Rivaroxaban [Xarelto] 15 mg PO 1700 03/29/17 05/26/17 Ranolazine [Ranexa] 1,000 mg PO BID 05/26/17 05/26/17 Sotalol [Betapace] 80 mg PO Q12HR 06/22/17 06/22/17 Previous Rx's Medication Instructions Recorded Ticagrelor [Brilinta] 90 mg PO BID #60 tablet 12/26/16 Allergies Allergy/AdvReac Type Severity Reaction Status Date / Time No Known Allergies Allergy Verified 06/22/17 22:50 All systems ED: reviewed and negative except as stated. Constitutional: Denies: fever ENT ED: Denies: congestion Cardiovascular: Reports: chest pain Respiratory: Denies: cough, dyspnea Gastrointestinal: Denies: abdominal pain Genitourinary: Denies: urgency, dysuria Musculoskeletal: Denies: back pain Neurological: Denies: headache Chest Pain PMH - Past Medical History Medical history: Reports: asthma, atrial fibrillation, cardiomyopathy, CHF, COPD , coronary artery disease, hyperlipidemia, hypertension, myocardial infarction, other Surgical history: Reports: angioplasty/stent, coronary bypass (CABG), LE stent(s ), LE vascular intervention, pacemaker/AICD Psychiatric history: Reports: no psych history - Social History Smoking Status: Former smoker Alcohol use: Reports: none Drug use: Reports: none Physical Exam - General Limitations: no limitations General appearance: alert, in no apparent distress - Head Head exam: atraumatic, normocephalic, normal inspection - Eye Eye exam: Present: normal appearance, PERRL, EOMI - ENT ENT exam: normal exam, normal oropharynx, mucous membranes moist - Neck Neck exam: Present: normal inspection, full ROM, trachea midline - Chest Chest inspection: Present: normal inspection, symmetric chest wall rise - Respiratory Respiratory exam: Present: normal lung sounds bilaterally - Cardiovascular Cardiovascular exam: Present: normal rhythm, tachycardia, normal heart sounds - Abdominal Exam Abdominal exam: Present: soft, Non-Tender. Absent: tenderness, distention, guarding, rebound, rigidity - Extremities Exam Extremities exam: Present: normal inspection, full ROM, other (Mild erythema to right foot). Absent: tenderness, pedal edema - Neurological Exam Neurological exam: Present: alert, oriented X3 - Skin Skin exam: Present: warm, dry, intact, normal color Course Vital Signs Temperature 98.2 F 06/22/17 22:50 Pulse Rate 130 06/22/17 22:50 Respiratory Rate 18 06/22/17 22:50 Blood Pressure 118/84 06/22/17 22:50 O2 Sat by Pulse Oximetry 98 06/22/17 22:50 Temperature 98.2 F 06/22/17 22:50 Pulse Rate 66 06/23/17 00:53 Respiratory Rate 18 06/23/17 00:53 Blood Pressure 102/66 06/23/17 00:53 O2 Sat by Pulse Oximetry 99 06/23/17 00:53 Oxygen Delivery Oxygen Delivery Nasal Cannula Chest Pain - MDM Narrative Medical decision making narrative: Workup in the emergency department demonstrates findings concerning for ACS. In addition the patient was noted to be in ventricular tachycardia per Dr. Godoy in cardiology. After discussion with cardiology about cardioverting the patient, we will reevaluate and his heart rate was in the 60s. EKG was repeated and it demonstrates a paced rhythm consistent with what was previously. The patient's chest pain is reduced significantly. The patient's blood pressure is improving is resting comfortably in the room. We will admit the patient to the hospital at this time. He was administered a heparin bolus at outlying facilities we will start him on a heparin drip. In addition the patient has an elevated troponin at 0.14. We will get the patient to the ICU. Accepted by Dr. Guillen. - Medical Records Medical records reviewed: Yes I reviewed the patient's medical records. - Lab Data Lab results reviewed: Yes I reviewed the patient's lab results. Result diagrams: 06/22/17 23:39 Lab Results 06/22/17 06/22/17 06/22/17 Range/Units 23:39 23:39 23:39 PT 34.5 H D (9.4-12.1) Seconds INR 3.1 APTT 212.8 H* D (26.0-36.0) Seconds Heparin Anti-Xa, Unfract 3.79 H* (0.30-0.70) IU/mL Sodium 137 (136-145) mEq/L Potassium 4.1 (3.5-5.1) mEq/L Chloride 109 H (98-107) mEq/L Carbon Dioxide 19 L (23-29) mEq/L BUN 21 (8-23) mg/dL Creatinine 1.12 (0.70-1.30) mg/dL Est GFR ( Amer) > 60 (> 60) Est GFR (Non-Af Amer) > 60 (> 60) BUN/Creatinine Ratio 19 (6-26) Glucose 166 H (70-105) mg/dL Calculated Osmolality 291 (280-300) Calcium 9.6 (8.6-10.3) mg/dL Troponin I 0.14 H* (< 0.04) ng/mL - Radiology Data Radiology results reviewed: Yes I reviewed the patient's radiology results. - EKG Data EKG attestation: Yes I reviewed and interpreted this EKG. EKG results narrative: Heart rate 129 beats for minute. Concern for ventricular tachycardia. ST elevation noted in 23 and aVF, ST depression noted in V2 V3 and V4. EKG #2 at 2352: Heart rate 63 bpm. Electronic atrial and ventricular pacemaker. Some escape ventricular beats.
[2017-06-23 00:02] LABS: INR 3.1; Prothrombin Time 34.5 Seconds (9.4-12.1)
[2017-06-23 00:08] LABS: BUN/Creatinine Ratio 19 (6-26); Blood Urea Nitrogen 21 mg/dL (8-23); Calcium 9.6 mg/dL (8.6-10.3); Carbon Dioxide 19 mEq/L (23-29); Chloride 109 mEq/L (98-107); Glucose 166 mg/dL (70-105); Osmolality,Calculated 291 (280-300); Potassium 4.1 mEq/L (3.5-5.1); Sodium 137 mEq/L (136-145); eGFR For African Americans > 60 (> 60); eGFR For Non-African Americans > 60 (> 60)
[2017-06-23] MEDS ORDERED: *HR* Heparin 5,000 UNIT/ML VIAL IVP PRN ×2 (00:15)
[2017-06-23 00:17] LABS: Activated Partial Thrombo Time 212.8 Seconds (26.0-36.0)
[2017-06-23 00:34] LABS: Heparin anti-factor XA UFH 3.79 IU/mL (0.30-0.70)
[2017-06-23 01:04] LABS: Magnesium 1.9 mg/dL (1.6-2.6)
--- NOTE | 2017-06-23 01:12 | Internal Med History&Physical ---
Date of Encounter: 06/23/17 Time of Encounter: 02:00 Internal Medicine - H&P: HPI Chief complaint: Chest pain Admitted From: Emergency Dept Plans for Post Hospital Care: Home History of present illness: Mr. Turner is a 76 year old male with history of significant heart disease including CAD with history of 2 CABGs, and apparently 9 stents, pacer, ICD insertion, hypertension, COPD, peripheral vascular disease status post lower shortly bypass, mitral valvuloplasty who presented to the [place] ED with chest pain that had been going on for several hours. The patient says that he was sitting watching TV when the chest pain started, it was 9 out of 10 in intensity and did not seem to radiate. The patient generally takes nitroglycerin for his chest pains and his successful, however he took a nitroglycerin this evening and was not successful in relieving the pain. At the [place] ED, the patient did have a EKG which demonstrated concerns for ST elevation in leads 3 and aVF and there was concern about STEMI. Dr. Alyssa Godoy with cardiology was notified and the patient was transferred to [facility] for left heart catheterization however on transport the patient developed significant hypotension and tachycardia with heart rates greater than 130. Upon arrival to our ED the patient was found to be in V. tach despite pacer and AICD insertion. The patient apparently does take sotalol at home, so amiodarone was a poor choice at time of arrival, however he appeared hemodynamically stable and his blood pressure then normalized. Dr. Godoy apparently was interested in doing a cardioversion, however he apparently converted on his own while in the ED. At that time, Dr. Godoy was consulted and did not feel that this patient was having an acute STEMI, and did not feel that heart catheterization tonight was appropriate for this patient. He was found have an elevated troponin on arrival of 0.14 despite it previously being negative. Upon the recommendation of Dr. Godoy, the patient was started on heparin drip and admitted to the ICU under the medicine service with the intention to cardiovert if the patient developed V. tach again. The patient's chest pains have now resolved. Significantly, the patient was here in April for an AICD discharge due to V. tach at which time cardiology interrogated the AICD D to confirm it. An echo at that time did demonstrate an EF of 30% and he did start on Ranexa for chest pain at home. His last heart catheterization was in late 2017 at which time they determined that his grafts were widely patent and there was no ischemic changes. Past Med Surg Social Fam HX - Past Medical History Medical history: asthma, atrial fibrillation, cardiomyopathy, CHF, COPD, coronary artery disease, hyperlipidemia, hypertension, myocardial infarction, other Psychiatric history: no psych history - Past Surgical History Surgical History: angioplasty/stent, coronary bypass (CABG), LE stent(s), LE vascular intervention, pacemaker/AICD - Social History Smoking Status: Former smoker Smokeless Tobacco Status: No Alcohol use: none Drug use: none - Family History Mother Adopted: No Family Member Ethnicity: Non- Living Status: Hx Family Cardiac Disorders: Yes Hx Family Respiratory Disorders: Yes Hx Family Neurologic Disorders: Yes (dementia) Internal Medicine - H&P: Meds Albuterol Sulfate [Ventolin Hfa] 90 mcg IH DAILY 06/23/17 [History] Atorvastatin [Lipitor] 20 mg PO HS 06/23/17 [History] Cholecalciferol (Vitamin D3) [Vitamin D] 2,000 unit PO DAILY 06/23/17 [History] Isosorbide DInitrate [Isosorbide Dinitrate] 30 mg PO DAILY 06/23/17 [History] Metoprolol Tartrate 100 mg PO BID 06/23/17 [History] Montelukast [Singulair] 10 mg PO DAILY 06/23/17 [History] Ranolazine [Ranexa] 1,000 mg PO BID 06/23/17 [History] Rivaroxaban [Xarelto] 15 mg PO DAILY 06/23/17 [History] Sotalol [Betapace] 80 mg PO Q12HR 06/23/17 [History] Ticagrelor [Brilinta] 90 mg PO BID 06/23/17 [History] 3 Allergy/AdvReac Type Severity Reaction Status Date / Time No Known Allergies Allergy Verified 06/22/17 22:50 All Systems PM: A 10-system review of systems was performed and is negative for pertinent findings except as documented above in the HPI. Review of systems: Constitutional: Denies fevers, chills, weight loss, generalized fatigue Head/Neck: Denies LUNA, neck stiffness EENT: Denies vision changes/blurriness, rhinorrhea, congestion, sore throat CVS: Admits to chest pains as per HPI, which have since resolved Pulm: Denies SOB, cough, sputum, hemoptysis, wheezing GI: Denies abdominal pain, nausea, vomiting, diarrhea, melena, hematemasis. He does admit to constipation. : Denies dysuria, increased frequency, urgency, hematuria Heme: Admits to ease of bruising while on blood thinners MSK: Denies joint pain, limited ROM Skin: Denies rashes, ulcers, color changes Neuro: Denies LUNA, paresthesias, focal deficits, ataxia - Constitutional Vitals: Temp Pulse Resp BP Pulse Ox 98.2 F 66 18 102/66 99 06/22/17 22:50 06/23/17 00:53 06/23/17 00:53 06/23/17 00:53 06/23/17 00:53 Exam: Gen: Vitals noted. No acute distress. HEENT: PERRL/EOMI, oropharynx clear, Normocephalic, atraumatic Neck: Supple. No adenopathy. Cardiac: RRR, no murmur, +S1/S2 Pulmonary: CTA bilaterally, no wheezes, rales or rhonchi, equal chest expansion Abdomen: soft, nontender, BS noted, no guarding Back: Nontender throughout. MSK: ROM intact, no joint swelling noted Extremities: Trace b/l LE edema, cool to the touch and poor pulses Neuro: A&Ox3, moves all extremities, no focal deficits Psych: Appropriate mood and behavior Internal Med - H&P Results - Labs CBC & Chem 7: 06/22/17 23:39 - Assessment and plan (1) Chest pain Current Visit: Yes Status: Acute Assessment and plan: Chest pain not relieved by nitro He has since recovered and is no longer having chest pain EKG was interpreted by Dr. Alyssa Godoy who does not believe this patient is having a STEMI Initial troponin was negative, however jumped to 0.10 following episode of Vtach Known cardiomyopathy with LVEF 30% in 05/06/17, CABGx2 and multiple stents We will continue on heparin drip at recommendation of cardiology, consult in the morning Trend troponins, repeat limited TTE in the morning Qualifiers: Chest pain type: unspecified Qualified Code(s): R07.9 - Chest pain, unspecified (2) V-tach Current Visit: Yes Status: Resolved Assessment and plan: Patient had sustained V-Tach upon arrival which spontaneously converted to sinus paced rhythm We will continue the patient's sotalol Continuous cardiac monitoring Cardiology consult in the morning (3) CAD (coronary artery disease) Current Visit: No Status: Chronic Assessment and plan: CAD s/p 9 stents Most recent [facility] with widely open grafts Started heparin drip per cardiology, trend troponins Qualifiers: Coronary Disease-Associated Artery/Lesion type: [place] artery [place] vs. transplanted heart: [place] heart Associated angina: without angina Qualified Code(s): I25.10 - Atherosclerotic heart disease of [place] coronary artery without angina pectoris (4) Cardiomyopathy Current Visit: No Status: Chronic Assessment and plan: Known ischemic cardiomyopathy -TTE 05/06/17 -LVEF 30%. -Severe global LV systolic dysfunction with regional variations involving the basal-mid inferior and inferolateral cole. -Moderately dilated left ventricle. Repeat limited TTE today, cardiology consultation Qualifiers: Cardiomyopathy type: ischemic Qualified Code(s): I25.5 - Ischemic cardiomyopathy (5) Cardiac defibrillator in place Current Visit: No Status: Chronic Assessment and plan: We will interrogate pacer in the morning (6) Elevated troponin Current Visit: Yes Status: Acute Assessment and plan: Troponin elevation with associated chest pain 0.03 -> 0.10 -> 7.83 Patient is currently on heparin drip (7) DVT prophylaxis Current Visit: No Status: Acute Assessment and plan: Currently on heparin drip and xarelto - Time Spent With Patient Total time spent is greater than 50% in coordination of care (as documented) at patient's floor/unit and/or counseling patient:
[2017-06-23] MEDS ORDERED: Naloxone 0.4 MG/ML INJ IVP PRN (01:13)
--- NOTE | 2017-06-23 01:31 | Emergency Department Note ---
Disposition Clinical Impression: NSTEMI (non-ST elevated myocardial infarction), V-tach, Elevated troponin Chest pain Qualifiers: Chest pain type: unspecified Qualified Code(s): R07.9 - Chest pain, unspecified Disposition: Admitted As Inpatient Condition: Undetermined General Adult HPI - General Chief complaint: ED Chest Pain Stated complaint: Chest Pain Time Seen by Provider: 06/22/17 22:53 Source: patient, EMS Mode of arrival: EMS Limitations: no limitations Nursing Notes Reviewed: Yes Vital Signs Reviewed: Yes - History of Present Illness Pain Scale: 9 - Related Data Home Medications Medication Instructions Recorded Confirmed Cholecalciferol (D-3) [Vitamin D] 2,000 unit PO DAILY 11/06/16 05/26/17 Metoprolol [Lopressor] 100 mg PO BID 11/06/16 05/26/17 Montelukast [Singulair] 50 mg PO HS 11/06/16 05/26/17 Atorvastatin [Lipitor] 20 mg PO HS 01/07/17 05/26/17 Isosorbide MONOnitrate (24 HR) 30 mg PO HS 03/29/17 05/26/17 [Imdur] Rivaroxaban [Xarelto] 15 mg PO 1700 03/29/17 05/26/17 Ranolazine [Ranexa] 1,000 mg PO BID 05/26/17 05/26/17 Sotalol [Betapace] 80 mg PO Q12HR 06/22/17 06/22/17 Previous Rx's Medication Instructions Recorded Ticagrelor [Brilinta] 90 mg PO BID #60 tablet 12/26/16 Allergies Allergy/AdvReac Type Severity Reaction Status Date / Time No Known Allergies Allergy Verified 06/22/17 22:50 Constitutional: Denies: fever ENT ED: Denies: congestion Cardiovascular: Reports: chest pain Respiratory: Denies: cough, dyspnea Gastrointestinal: Denies: abdominal pain Genitourinary: Denies: urgency, dysuria Musculoskeletal: Denies: back pain Neurological: Denies: headache Past Medical History - Past Medical History Medical history: Reports: asthma, atrial fibrillation, cardiomyopathy, CHF, COPD , coronary artery disease, hyperlipidemia, hypertension, myocardial infarction, other Surgical history: Reports: angioplasty/stent, coronary bypass (CABG), LE stent(s ), LE vascular intervention, pacemaker/AICD Psychiatric history: Reports: no psych history - Social History Smoking Status: Former smoker Smokeless Tobacco Status: No Alcohol use: Reports: none Drug use: Reports: none Physical Exam - General Limitations: no limitations General appearance: alert, in no apparent distress Course Vital Signs Temperature 98.2 F 06/22/17 22:50 Pulse Rate 130 06/22/17 22:50 Respiratory Rate 18 06/22/17 22:50 Blood Pressure 118/84 06/22/17 22:50 O2 Sat by Pulse Oximetry 98 06/22/17 22:50 Temperature 98.2 F 06/22/17 22:50 Pulse Rate 66 06/23/17 00:53 Respiratory Rate 18 06/23/17 00:53 Blood Pressure 102/66 06/23/17 00:53 O2 Sat by Pulse Oximetry 99 06/23/17 00:53 Oxygen Delivery Oxygen Delivery Nasal Cannula Medical Decision Making - Lab Data Result diagrams: 06/22/17 23:39 Lab Results 06/22/17 06/22/17 06/22/17 Range/Units 23:39 23:39 23:39 PT 34.5 H D (9.4-12.1) Seconds INR 3.1 APTT 212.8 H* D (26.0-36.0) Seconds Heparin Anti-Xa, Unfract 3.79 H* (0.30-0.70) IU/mL Sodium 137 (136-145) mEq/L Potassium 4.1 (3.5-5.1) mEq/L Chloride 109 H (98-107) mEq/L Carbon Dioxide 19 L (23-29) mEq/L BUN 21 (8-23) mg/dL Creatinine 1.12 (0.70-1.30) mg/dL Est GFR ( Amer) > 60 (> 60) Est GFR (Non-Af Amer) > 60 (> 60) BUN/Creatinine Ratio 19 (6-26) Glucose 166 H (70-105) mg/dL Calculated Osmolality 291 (280-300) Calcium 9.6 (8.6-10.3) mg/dL Magnesium 1.9 (1.6-2.6) mg/dL Troponin I 0.14 H* (< 0.04) ng/mL Critical Care Time Critical Care Time: Yes Total Critical Care Time: 45 Attestation: Critical care performed: Time is exclusive of separately billable procedures. Time includes: direct patient care, patient reassessment, coordination of patient care, interpretation of data (laboratory data, radiology data, and respiratory data), review of patient's medical records, medical consultation and documentation of patient care. Procedures included in critical care time: Procedures excluded from critical care time: Attestation Statement - Attestation Attestation: I, Saravanan Jenkins MD, personally evaluated this patient and discussed their management with the resident physician. I reviewed the resident's note and agree with the documented findings, medical decision making, and plan of care. Patient is a 76-year-old male who was seen at the emergency department at [facility] and was transferred here as a STEMI alert. Patient apparently developed some tachycardia and hypotension in route. The online education manager, Dr. Godoy, advised she did not feel that patient was having a STEMI and that she did not accept the patient in that the patient should be seen in the emergency department. On arrival here the patient had a stable blood pressure. His heart rate was in the 120s to 130s. He was awake and alert and answered questions appropriate. Continues to complain of upper chest pain. EKG obtained here and Dr. Godoy felt that this was V. tach. She recommended amiodarone however the patient was found to be on sotalol and when advised of this he recommended cardioversion. Before we cardioverted the patient he spontaneously converted to his paced rhythm with occasional PVCs. On examination patient is a well-developed well-nourished elderly male in no acute distress. He is alert and oriented 3. There is no cyanosis or diaphoresis. Breath sounds are equal bilaterally. Heart regular with a mild tachycardia. Abdomen soft and nontender with normal bowel sounds. No pedal edema. Labs reviewed. Troponin here increased to 0.14. Initial troponin at the other facility was normal. Patient started on heparin infusion. He had already received a heparin bolus at the other facility. As, Dr. Guillen, was consulted and accepted admission of the patient.
--- NOTE | 2017-06-23 01:50 | Event Note ---
Date of Encounter: 06/23/17 Time of Encounter: 01:43 Patient was seen and examined. Agree with the H&P as written by the resident physician. Patient with history of CAD s/p CABG, CHF s/p ICD, COPD, Afib, HTN, HLD who had presented to [place] with complaints of chest pain that started earlier in the day. EKG apparently on arrival there showed wide-complex tachycardia and the patient was hypotensive. He was noted to have some ST elevations in leads 3 and aVF concerning for STEMI. A STEMI alert was called and there was plans to transfer the patient here for left heart catheterization. Dr. Godoy had reviewed the patient's EKG and was not convinced that the patient was having a STEMI but agreed to transfer the patient to the ED for further assessment. Troponin was 0.03 at [place] and upon transferring here the patient's troponins had jumped up to 0.14. In route to here apparently the patient had developed some tachycardia again and was hypotensive. By the time the patient arrived here the blood pressure had stabilized. His heart rate was in the 120s to 130s. The patient complained of upper chest pain. Dr. Godoy looked at the EKG here and noted that the patient was V. tach here and recommended amiodarone drip however given the patient was on sotalol already Dr. Godoy was made aware of that and amiodarone drip was not started. Dr. Godoy had recommended the patient be cardioverted then. The patient ended up converting spontaneously to paced rhythm without the need of cardioversion. The patient is being admitted to the hospitalist service in the ICU with a consult to cardiology on a heparin drip. If the patient becomes hemodynamically stable and is not V. tach we will have to cardiovert him under the atomic fuel assembler recommendations and guidance. The patient was here back in April for AICD discharge due to V. tach. Cardiology also saw the patient back and and his device was interrogated confirming V. tach and shock. An echo at that time showed EF of 30%. Ranexa was added to his home medications for chest pain at the time. According to the most recent cardiology progress note the patient had a left heart catheterization recently at [place] without intervention. Currently patient is hemodynamically stable CTAB Paced rhythm. No m/r/g Soft, NT, ND, No edema We will admit the patient to the ICU. Continue heparin drip Trend cardiac enzymes Consult cardiology Repeat limited echo Device interrogation Resume cardiac meds Patient is on Xarelto for anticoagulation. If patient comes in with an stable and is not V. tach we will cardiovert as recommended by cardiology.
[2017-06-23 02:52] LABS: Basophils # 0.1 K/mcL (0.0-0.2); Basophils % 0.9 %; Eosinophils % 0.2 %; Hematocrit 39.5 % (37.5-50.1); Hemoglobin 13.1 g/dL (12.9-16.9); Immature Granulocytes % 1.2 % (0-4); Lymphocytes # 1.5 K/mcL (0.6-4.6); Lymphocytes % 25.8 %; Mean Corpuscular HGB Conc 33.2 g/dL (31.6-35.5); Mean Corpuscular Hemoglobin 30.8 pg (28.0-33.3); Mean Corpuscular Volume 92.7 fL (83.0-100.0); Mean Platelet Volume 11.6 fL (9.4-12.4); Monocytes # 0.5 K/mcL (0.0-1.3); Monocytes % 8.8 %; Neutrophils # 3.6 K/mcL (1.6-8.9); Platelet Count 148 K/mcL (140-400); Red Blood Count 4.26 M/mcL (4.19-5.50); Red Cell Distribution Width 16.1 % (11.5-14.5); Segmented Neutrophils % 63.1 %
[2017-06-23 03:01] LABS: INR 2.4
[2017-06-23] MEDS: Heparin 25,000 UNIT/500 ML D5W 25,000 UNIT/500 ML BAG IVC SCH (03:08)
[2017-06-23 03:18] LABS: Alanine Aminotransferase 26 Units/L (7-52); Albumin 3.4 g/dL (3.5-5.7); Albumin/Globulin Ratio 1.6 (1.1-2.2); Alkaline Phosphatase 64 Units/L (34-104); Aspartate Amino Transferase 69 Units/L (13-39); BUN/Creatinine Ratio 22 (6-26); Bilirubin,Total 0.8 mg/dL (0.3-1.0); Blood Urea Nitrogen 22 mg/dL (8-23); Calcium 9.2 mg/dL (8.6-10.3); Carbon Dioxide 22 mEq/L (23-29); Chloride 110 mEq/L (98-107); Globulin 2.1 g/dL (2.4-3.5); Glucose 127 mg/dL (70-105); Magnesium 1.8 mg/dL (1.6-2.6); Osmolality,Calculated 291 (280-300); Potassium 3.5 mEq/L (3.5-5.1); Sodium 138 mEq/L (136-145); Total Protein 5.5 g/dL (6.4-8.9); eGFR For African Americans > 60 (> 60); eGFR For Non-African Americans > 60 (> 60)
[2017-06-23 03:23] LABS: Troponin I 7.83 ng/mL (< 0.04)
[2017-06-23] MEDS ORDERED: Furosemide 20 MG/2 ML VIAL IVP ONE (03:59)
[2017-06-23] MEDS: Metoprolol 100 MG TABLET PO SCH ×2 (07:56→20:29)
[2017-06-23] MEDS: Isosorbide MONOnitrate (24 HR) 30 MG TAB.ER.24H PO SCH (07:59)
[2017-06-23] MEDS: *HR* Ticagrelor 90 MG TABLET PO SCH ×2 (07:59→20:23)
--- NOTE | 2017-06-23 10:48 | Cardiology Consult Note ---
Date of Encounter: 06/23/17 Time of Encounter: 09:30 Assessment and Plan (1) V-tach Current Visit: Yes Status: Acute Per cardiology: -Presented to [facility] and noted to be in VT. -Has ICD, device check performed with last VT treatment April. Device rep states his VT treatment zone is 167BPM and VT monitor zone is 133BPM. Also atrial auto capture off. -ECG with VT, HR 129. -K, MG ok. -On beta tristan. Was also on sotalol per primary bag machine operator, . On heparin drip. -Will stop sotalol and allow 24 hour wash out, received sotalol 06/23/17 at 0500. -Plan for possible LHC in am. Will make NPO after midnight. -Will consult EP in am, anticipate amiodarone initiation. -Close telemetry monitoring. -Will continue to monitor. (2) NSTEMI (non-ST elevated myocardial infarction) Current Visit: Yes Status: Acute Per cardiology: -Troponin negative, 0.14, 7.83. -Had chest pain on admisison, currently chest pain free. -On heparin drip. -On statin, beta tristan, imdur, brilinta. -Not on asa due to need for full anticoagulation due to a.fib. -plan for possible LHC in am. (3) Ischemic cardiomyopathy Current Visit: Yes Status: Acute Per cardiology: -Known ICM. -TTE 04/2017 with LVEF 30%, Severe global LV systolic dysfunction with regional variations involving the basal-mid inferior and inferolateral cole. Moderately dilated left ventricle.S/p #29 [employer] porcine bioprosthetic mitral valve demonstrating normal function. Mild aortic regurgitation. -On beta tristan, lopressor per primary bag machine operator. Has not been on asha/arb due to hypotension. -Euvoelmic on exam. -Chest x-ray with no acute process. -Will continue to monitor. (4) Paroxysmal atrial fibrillation Current Visit: No Status: Chronic Per cardiology: -Known history of PAF> -On beta blokcer, HR controlled. -ON xarelto in outpatient setting, currently on hold due to need for LHC. -ON heparin drip. -Will continue to monitor Discussion w patient/family: The assessment and plan as outlined above was discussed with the patient who expressed understanding and agreement. All questions were answered. Thank you for involving us in the care of your patient. Please call with any questions. Discussed and reviewed with Dr.Jennifer Godoy. History of Present Illness Consult date: 06/23/17 Requesting physician: Angel Camacho Consult reason: VT Chief complaint: chest pain History of present illness: Mr. Turner is a 76 year old male with a relevant past medical history of CAD s/ p CABG and PCI, ICM s/p ICD, VT, PAD, HTN, HLD, a.fib on xarelto in outpateint setting, previous tobacco abuse. Patient presented to [facility] with complaints of chest pain. Patient reports for the past month has had intermittent chest pain that is non-exertional. Patient reports he had taken nitro with no relief. Patient states yesterday was having severe chest pain that he could not get relief from. States he took multiple nitro without relief. Pateint states he presented to [facility]. Patient was noted to be in VT, however patient self converted without intervention. Patient denies current chest pain. Denies shortness of breath. Patient denies dizziness or lightheadedness. Per families report, during these episodes of chest pain, pateint would be diaphoretic and pale. Past Med Surg Social Fam HX - Past Medical History Attestation: Yes The following information was validated with the patient. Source: patient, old records reviewed Medical history: asthma, atrial fibrillation, cardiomyopathy, CHF, COPD, coronary artery disease, hyperlipidemia, hypertension, myocardial infarction, other Psychiatric history: no psych history - Past Surgical History Surgical History: angioplasty/stent, coronary bypass (CABG), LE stent(s), LE vascular intervention, pacemaker/AICD - Social History Smoking Status: Former smoker Smokeless Tobacco Status: No Alcohol use: none Drug use: none - Family History Mother Adopted: No Family Member Ethnicity: Non- Living Status: Hx Family Cardiac Disorders: Yes Hx Family Respiratory Disorders: Yes Hx Family Neurologic Disorders: Yes (dementia) Medications and Allergies Albuterol Sulfate [Ventolin Hfa] 90 mcg IH DAILY 06/23/17 [History] Atorvastatin [Lipitor] 20 mg PO HS 06/23/17 [History] Cholecalciferol (Vitamin D3) [Vitamin D] 2,000 unit PO DAILY 06/23/17 [History] Isosorbide DInitrate [Isosorbide Dinitrate] 30 mg PO DAILY 06/23/17 [History] Metoprolol Tartrate 100 mg PO BID 06/23/17 [History] Montelukast [Singulair] 10 mg PO DAILY 06/23/17 [History] Ranolazine [Ranexa] 1,000 mg PO BID 06/23/17 [History] Rivaroxaban [Xarelto] 15 mg PO DAILY 06/23/17 [History] Sotalol [Betapace] 80 mg PO Q12HR 06/23/17 [History] Ticagrelor [Brilinta] 90 mg PO BID 06/23/17 [History] 3 Allergy/AdvReac Type Severity Reaction Status Date / Time No Known Allergies Allergy Verified 06/22/17 22:50 All Systems Review: The remainder of the systems were reviewed and are negative - Cardiovascular Cardiovascular: as per HPI, chest pain at rest Physical Examination Vital Signs, Last 4 Hours Temp Pulse Resp BP Pulse Ox 06/23/17 10:00 61 18 105/70 98 06/23/17 09:00 60 18 99/58 97 06/23/17 08:26 97.8 F 06/23/17 08:00 61 18 111/67 96 06/23/17 07:00 87 16 103/49 97 General: Conversant, No Apparent Distress HEENT: Atraumatic, Normocephaly, Mucus Membranes Moist Neck: No JVD, Normal carotid pulses Cardiac: Reg Rate and Rhythm, Normal S1 and S2, No Murmur Lungs: Normal Breath Sounds, No Wheeze, Rales, Rhonchi Neuro: Alert and responsive, No focal deficits noted Abdomen: Soft, Non-Tender Skin: No rashes noted on visualized skin Musculoskeletal: No Chest Wall Tenderness Extremities: No Clubbing, No Cyanosis, No Edema, Normal Pulses Results 06/23/17 02:45 06/23/17 02:45 Lab Results Active Medications Atorvastatin Calcium (Lipitor) 20 mg PO HS MELISA Stop: 12/23/17 21:01 Heparin Sodium (Porcine) (Heparin) 4,000 unit IVP Q6HR PRN PRN Reason: SEE COMMENTS Stop: 12/23/17 00:16 Heparin Sodium (Porcine) (Heparin) 2,000 unit IVP Q6H PRN PRN Reason: SEE COMMENTS Stop: 12/23/17 00:16 Heparin Sodium/Dextrose (Heparin 25,000 Unit/500 Ml D5w) 25,000 unit in 500 mls @ 16.874 mls/hr IVC .Q24H MELISA; 12 UNIT/KG/HR PRN Reason: Protocol Stop: 12/23/17 00:16 Last Admin: 06/23/17 03:08 Dose: 12 unit/kg/hr, 16.874 mls/hr Isosorbide Mononitrate (Imdur) 30 mg PO DAILY [facility] Stop: 12/23/17 09:01 Last Admin: 06/23/17 07:59 Dose: 30 mg Metoprolol Tartrate (Lopressor) 100 mg PO BID [facility] Stop: 12/23/17 09:01 Last Admin: 06/23/17 07:56 Dose: Not Given Montelukast Sodium (Singulair) 10 mg PO DAILY [facility] Stop: 12/23/17 09:01 Last Admin: 06/23/17 07:59 Dose: 10 mg Naloxone HCl (Narcan) 0.4 mg IVP Q2MIN PRN PRN Reason: SEE COMMENTS Stop: 12/23/17 01:14 Ticagrelor (Brilinta) 90 mg PO BID [facility] Stop: 12/23/17 09:01 Last Admin: 06/23/17 07:59 Dose: 90 mg Laboratory Tests 06/22/17 06/23/17 06/23/17 23:39 02:45 02:45 Hgb 13.1 D INR Potassium 3.5 Creatinine 1.02 Magnesium 1.8 Troponin I 0.14 H* 7.83 H* B-Natriuretic Peptide 06/23/17 06/23/17 02:45 02:45 Hgb INR 2.4 Potassium Creatinine Magnesium Troponin I B-Natriuretic Peptide 1069 H - Imaging and Cardiology Chest Xray: report reviewed Echo: report reviewed Cardiac cath: report reviewed - EKG Interpretation EKG results cardiology: personally reviewed (ECG with VT, HR 129.), other ( Telemetry reviewed with average HR previous 12 hours noted to be 69, a.fib, intermittent paced rhythm.) Consult Discharge Plan - Plan Referrals: Roberto Rodney, DO [Primary Care Provider] -
[2017-06-23 11:03] LABS: Activated Partial Thrombo Time 122.2 Seconds (26.0-36.0)
[2017-06-23 11:45] LABS: Heparin anti-factor XA UFH 3.6 IU/mL (0.30-0.70)
--- NOTE | 2017-06-23 13:20 | Internal Med Progress Note ---
Date of Encounter: 06/23/17 Time of Encounter: 09:30 - Assessment and plan (1) NSTEMI (non-ST elevated myocardial infarction) Current Visit: Yes Status: Acute Assessment and plan: Patient reports of being chest pain free this morning and is no longer and V. tach Patient's troponins continued to elevate however and last check 33.56 Continue statin, beta tristan, imdur and brilinta; not on asa due to being on a OAC for atrial fibrillation Cardiology following with plans for LHC per cardiology on 06/25/79 (2) V-tach Current Visit: Yes Status: Resolved Assessment and plan: Patient was found to be in V. tach with heart rate in the 120 to 130s but has resolved Cardiology consulted with recommendations for electrophysiology consult Recommendations to discontinue sotalol for 24-hour wash with anticipation of initiating amiodarone Soccer Coach will be following and appreciate recommendations (3) Ischemic cardiomyopathy Current Visit: Yes Status: Acute Assessment and plan: Patient with known LVEF of 30% on echocardiogram 04/2017 with noted severe global left ventricle systolic dysfunction Patient does not appear to have exacerbation of heart failure Continue beta tristan Cardiology following and appreciate recommendations (4) Paroxysmal atrial fibrillation Current Visit: No Status: Chronic Assessment and plan: Patient with history of paroxysmal atrial fibrillation and on Xarelto as an outpatient; currently being held due to patient being on heparin drip (5) Essential hypertension Current Visit: No Status: Chronic Assessment and plan: Controlled; continue beta tristan (6) DVT prophylaxis Current Visit: No Status: Acute Assessment and plan: On heparin drip - Time Spent With Patient Total time spent is greater than 50% in coordination of care (as documented) at patient's floor/unit and/or counseling patient: - Subjective Interval history: Patient reports of being chest pain free this morning and is no longer and V. tach Patient's troponins continued to elevate however and last check 33.56; plans for LHC per cardiology on 06/24/17 - Constitutional Vitals: Temp Pulse Resp BP Pulse Ox 97.8 F 61 18 105/70 98 06/23/17 08:26 06/23/17 10:00 06/23/17 10:00 06/23/17 10:00 06/23/17 10:00 General appearance: Present: no acute distress - Respiratory Respiratory exam: Present: CTAB. Absent: accessory muscle use, rales, rhonchi, wheezes - Cardiovascular Cardiovascular exam: Present: RRR, +S1, +S2. Absent: diastolic murmur, gallop, rubs, systolic murmur Internal Medicine: Result - Labs CBC & Chem 7: 06/23/17 02:45 06/23/17 02:45 Labs: Short CBC 06/23/17 Range/Units 02:45 WBC 5.7 (4.3-11.1) K/mcL Hgb 13.1 D (12.9-16.9) g/dL Hct 39.5 (37.5-50.1) % Plt Count 148 (140-400) K/mcL Neutrophils # 3.6 (1.6-8.9) K/mcL BMP 06/23/17 02:45 Sodium 138 Potassium 3.5 Chloride 110 H Carbon Dioxide 22 L BUN 22 Creatinine 1.02 Glucose 127 H Calcium 9.2 Cardiac Enzymes 06/23/17 06/23/17 Range/Units 02:45 12:02 Troponin I 7.83 H* 33.56 H* (< 0.04) ng/mL Liver Function 06/23/17 Range/Units 02:45 Total Bilirubin 0.8 (0.3-1.0) mg/dL AST 69 H (13-39) Units/L ALT 26 (7-52) Units/L Alkaline Phosphatase 64 (34-104) Units/L Albumin 3.4 L (3.5-5.7) g/dL - ABG Interpretation ABG results: PT/INR, D-dimer PT 26.0 Seconds (9.4-12.1) H 06/23/17 02:45 Consult Discharge Plan - Plan Referrals: Roberto Rodney DO [Primary Care Provider] -
[2017-06-23] MEDS ORDERED: Nitroglycerin 0.4 MG TAB.SUBL SL ONE (22:48)
[2017-06-23] MEDS: Nitroglycerin 0.4 MG TAB.SUBL SL PRN (22:50)
[2017-06-23] MEDS ORDERED: Amiodarone Premix 150 MG/100 ML BAG IVPB ONE (22:50)
[2017-06-23] MEDS: Amiodarone Premix 360 MG/200 ML BAG IVC ONE (23:23)
[2017-06-24] MEDS: Amiodarone Premix 360 MG/200 ML BAG IVC ONE (02:17)
[2017-06-24] MEDS: Heparin 25,000 UNIT/500 ML D5W 25,000 UNIT/500 ML BAG IVC SCH (03:49)
[2017-06-24] MEDS: Amiodarone Premix 360 MG/200 ML BAG IVC SCH ×3 (05:31→20:22)
[2017-06-24] MEDS: *HR* Ticagrelor 90 MG TABLET PO SCH ×2 (07:56→20:21)
[2017-06-24] MEDS: Metoprolol 100 MG TABLET PO SCH ×2 (07:56→20:21)
[2017-06-24] MEDS: Isosorbide MONOnitrate (24 HR) 30 MG TAB.ER.24H PO SCH (07:56)
[2017-06-24 09:37] LABS: Basophils # 0.1 K/mcL (0.0-0.2); Basophils % 1.2 %; Eosinophils # 0.1 K/mcL (0.0-0.6); Eosinophils % 1.3 %; Hematocrit 41.1 % (37.5-50.1); Hematocrit 41.8 % (37.5-50.1); Hemoglobin 13.6 g/dL (12.9-16.9); Hemoglobin 13.9 g/dL (12.9-16.9); Immature Granulocytes % 1.3 % (0-4); Lymphocytes # 1.5 K/mcL (0.6-4.6); Lymphocytes % 24.5 %; Mean Corpuscular HGB Conc 33.1 g/dL (31.6-35.5); Mean Corpuscular HGB Conc 33.3 g/dL (31.6-35.5); Mean Corpuscular Hemoglobin 30.4 pg (28.0-33.3); Mean Corpuscular Hemoglobin 30.6 pg (28.0-33.3); Mean Corpuscular Volume 91.9 fL (83.0-100.0); Mean Corpuscular Volume 92.1 fL (83.0-100.0); Mean Platelet Volume 11.6 fL (9.4-12.4); Mean Platelet Volume 11.9 fL (9.4-12.4); Monocytes # 0.8 K/mcL (0.0-1.3); Monocytes % 12.3 %; Neutrophils # 3.6 K/mcL (1.6-8.9); Platelet Count 158 K/mcL (140-400); Platelet Count 159 K/mcL (140-400); Red Blood Count 4.47 M/mcL (4.19-5.50); Red Blood Count 4.54 M/mcL (4.19-5.50); Red Cell Distribution Width 16.2 % (11.5-14.5); Segmented Neutrophils % 59.4 %
[2017-06-24 09:48] LABS: BUN/Creatinine Ratio 17 (6-26); Blood Urea Nitrogen 15 mg/dL (8-23); Calcium 9.4 mg/dL (8.6-10.3); Carbon Dioxide 23 mEq/L (23-29); Chloride 111 mEq/L (98-107); Glucose 109 mg/dL (70-105); Osmolality,Calculated 291 (280-300); Sodium 140 mEq/L (136-145); eGFR For African Americans > 60 (> 60); eGFR For Non-African Americans > 60 (> 60)
[2017-06-24 09:58] LABS: INR 1.6; Prothrombin Time 16.9 Seconds (9.4-12.1)
[2017-06-24 10:41] LABS: Troponin I 6.86 ng/mL (< 0.04)
--- NOTE | 2017-06-24 11:39 | Event Note ---
Date of Encounter: 06/24/17 Time of Encounter: 09:00 - Cardiology Event Note Plan for LHC today for VT, NSTEMI. RIsks versus benefits of LHC explained to patient and family. Further recommendations pending LHC. Continue heparin drip, continue amiodarone drip. PLan for EP consult.
[2017-06-24] MEDS ORDERED: Heparin 1,000 UNITS/500 mL 500 ML ONE (14:48)
[2017-06-24] MEDS ORDERED: ISOVUE-370 200 ML INFUS..BTL IV ONE ×2 (14:48→16:49)
[2017-06-24] MEDS ORDERED: *HR* Heparin 10,000 UNIT/10 ML VIAL ONE (14:48)
[2017-06-24] MEDS ORDERED: 0.9 % Sodium Chloride 1,000 ML ONE ×2 (14:48→14:50)
[2017-06-24] MEDS ORDERED: *HR* Midazolam HCl 2 MG/2 ML VIAL ONE (14:50)
[2017-06-24] MEDS ORDERED: *HR* FentaNYL (PF) 100 MCG/2 ML VIAL ONE (14:50)
[2017-06-24] MEDS ORDERED: Nitroglycerin 1,000 MCG/10 ML VIAL IV ONE (14:50)
--- NOTE | 2017-06-24 15:46 | Internal Med Progress Note ---
Date of Encounter: 06/24/17 Time of Encounter: 11:00 - Assessment and plan (1) NSTEMI (non-ST elevated myocardial infarction) Current Visit: Yes Status: Acute Assessment and plan: Patient reports of being chest pain free this morning and is no longer and V. tach Patient with elevated cardiac biomarkers although trending down Cardiology following with plans for [facility] today (2) V-tach Current Visit: Yes Status: Resolved Assessment and plan: Patient was found to be in V. tach with heart rate in the 120 to 130s but has resolved Cardiology consulted with recommendations for electrophysiology consult Recommendations to discontinue sotalol for 24-hour wash with anticipation of initiating amiodarone Director Medical Science will be following and appreciate recommendations (3) Ischemic cardiomyopathy Current Visit: Yes Status: Acute Assessment and plan: Patient with known LVEF of 30% on echocardiogram 04/2017 with noted severe global left ventricle systolic dysfunction Patient does not appear to have exacerbation of heart failure Continue beta tristan Cardiology following and appreciate recommendations (4) Paroxysmal atrial fibrillation Current Visit: No Status: Chronic Assessment and plan: Patient with history of paroxysmal atrial fibrillation and on Xarelto as an outpatient; currently being held due to patient being on heparin drip (5) Essential hypertension Current Visit: No Status: Chronic Assessment and plan: Controlled; continue beta tristan (6) DVT prophylaxis Current Visit: No Status: Acute Assessment and plan: On heparin drip - Time Spent With Patient Total time spent is greater than 50% in coordination of care (as documented) at patient's floor/unit and/or counseling patient: - Subjective Interval history: Patient has been chest pain free so far during this admission and is no longer and V. tach Plans for [facility] today - Constitutional Vitals: Temp Pulse Resp BP Pulse Ox 97.6 F 60 18 114/66 95 06/24/17 11:49 06/24/17 11:39 06/24/17 11:00 06/24/17 11:00 06/24/17 11:00 General appearance: Present: no acute distress - Respiratory Respiratory exam: Present: CTAB. Absent: accessory muscle use, rales, rhonchi, wheezes - Cardiovascular Cardiovascular exam: Present: RRR, +S1, +S2. Absent: diastolic murmur, gallop, rubs, systolic murmur Internal Medicine: Result - Labs CBC & Chem 7: 06/24/17 09:14 06/24/17 09:14 Labs: Short CBC 06/24/17 06/24/17 Range/Units 09:14 09:14 WBC 5.9 6.1 (4.3-11.1) K/mcL Hgb 13.6 13.9 (12.9-16.9) g/dL Hct 41.1 41.8 (37.5-50.1) % Plt Count 159 158 (140-400) K/mcL Neutrophils # 3.6 (1.6-8.9) K/mcL BMP 06/24/17 09:14 Sodium 140 Potassium 4.0 Chloride 111 H Carbon Dioxide 23 BUN 15 Creatinine 0.88 Glucose 109 H Calcium 9.4 Cardiac Enzymes 06/24/17 Range/Units 09:14 Troponin I 6.86 H* (< 0.04) ng/mL - ABG Interpretation ABG results: PT/INR, D-dimer PT 16.9 Seconds (9.4-12.1) H 06/24/17 09:14 - Impressions Impressions Echocardiogram Limited Views 06/23/17 01:18 Impressions: LVEF 20-25%. Severely dilated left ventricle. Severe global left ventricular systolic dysfunction with regional variations. Atypical septal motion consistent with paced rhythm. Left Ventricular Wall Motion: Rest Echo Findings The apex, apical inferior, mid inferior, basal inferior, apical anterior, mid anterior, basal anterior, apical septal, mid inferior septal, basal inferior septal, apical lateral, mid anterior lateral, basal anterior lateral, mid anterior septal, mid inferior lateral, basal anterior septal and basal inferior lateral cole were hypokinetic. Findings: Study Quality * Technically adequate exam. ECG Findings * Paced rhythm. Left Ventricle * LVEF 20-25%. * Severely dilated left ventricle. * Severe global left ventricular systolic dysfunction with regional variations. * Atypical septal motion consistent with paced rhythm. Right Ventricle * Mild right ventricular hypokinesis. Left Atrium * Severely dilated left atrium. Right Atrium * Moderately dilated right atrium. Aorta * Normally sized aortic root. Pericardium * The pericardium appears normal. IVC * Normal IVC dimensions and inspiratory collapse. Device lead * A device lead was visualized in the right atrium and right ventricle. Consult Discharge Plan - Plan Referrals: Roberto Rodney DO [Primary Care Provider] -
--- NOTE | 2017-06-24 16:30 | Pre-Sedation Evaluation ---
Pre-sedation evaluation - Pre-sedation checklist Date of procedure: 06/24/17 Procedure: LHC Recent Vitals: Last Vital Signs Temp 97.7 F 06/24/17 16:03 Pulse 63 06/24/17 16:00 Resp 14 06/24/17 16:00 BP 122/57 06/24/17 15:00 Pulse Ox 97 06/24/17 16:00 ASA Classification *see protocol: CLASS II-Mild systemic disease
--- NOTE | 2017-06-24 16:36 | Electrocardiograph Report ---
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
--- NOTE | 2017-06-24 16:55 | Electrocardiograph Report ---
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
[2017-06-24] MEDS ORDERED: *HR* Atropine Sulfate 1 MG/10 ML SYRINGE ONE (17:34)
--- NOTE | 2017-06-24 17:40 | Invasive Diagnostic Lab Proc ---
Name: Blaise Turner Date of Study: 06/24/2017 Date: 1940 Ht: 72.0in Medical Record#: [id number] Age: 76 Wt: 158.73lb Gender: Male BSA: 1.93 Order #: [id number] BMI: 21.5 Physicians Procedure Physician: Philomena Paniagua MD Referring MD: Referring MD: Staff Name Position Time In Karmen Dewitt RT (R) Scrub 04:11 PM Eliazar Duyen RT (R) Monitor 04:11 PM Belinda Price RN Weekend Caregiver 04:11 PM Indications Indication Non-Stemi Procedures Performed Procedure L HRT ART/GRFT ANGIO Pre-Procedure Checklist Informed consent is complete signed and on chart. H&P is on chart. ID band is on and ID verified with patient. Patient NPO for procedure The procedure was described for the patient and questions were answered. Blood Pressure: 129/86 ECG is on chart. Rhythm: Atrial Fibrillation Plan of Care Patient will tolerate the procedure without complications. Adequate level of comfort will be maintained. Hemodynamics will remain stable Patient will recover from procedure without complications. Respiratory function will be maintained. Cardiac rhythm will remain stable. Patient temperature will be maintained. Patient and/or family have verbalized understanding of the procedure. Patient Education Chief Complaint/Reason for Test: Cardiac Cath Developmental Category: Geriatric (65+ years) Developmentally Appropriate for Age: Yes Learning Barriers: None Education Needs: Procedure Education Method: Verbal Information Taught: Cardiac Cath Educational Evaluation: Able to repeat information Intravenous Access Time IV Size Location DC'd Fluid/Drip Rate Units RN 04:15 PM 18g 1 1/4" Patent On Arrival Lt Arm Amiodarone 16.7 ml/hr Belinda Price RN 04:15 PM 20g 1 1/4" Patent On Arrival Rt Arm 0.9NaCl 25 ml/hr Belinda Price RN Allergies No Known Allergies Vital Signs Time BP (mmHg) HR (bpm) O2 Sat. RR (bpm) LOC 04:16 PM 112 / 68 62 97 % 19 5 = Fully awake and oriented or at pre-proc level 04:25 PM / % 5 = Fully awake and oriented or at pre-proc level 04:25 PM / % 4 = Oriented but drowsy 04:40 PM / % 4 = Oriented but drowsy 04:17 PM 129 / 86 72 98 % 04:24 PM 140 / 77 24 99 % 15 04:28 PM 126 / 65 65 99 % 20 04:32 PM 126 / 69 64 98 % 10 04:37 PM 129 / 74 66 99 % 24 04:42 PM 125 / 64 74 99 % 17 04:47 PM 115 / 61 65 99 % 16 04:52 PM 127 / 70 83 98 % 14 04:57 PM 119 / 72 70 98 % 19 05:02 PM 119 / 76 27 95 % 17 Procedural Medications Time Medication Dose Units Method Given By 04:18 PM Oxygen 2 L/min nasal cannula Belinda Price RN 04:19 PM Versed 1 mg Intravenous Belinda Price RN 04:19 PM Fentanyl 50 mcg Intravenous Belinda Price RN 04:34 PM Lidocaine 2% 10 ml Subcutaneous Philomena Paniagua MD ASA Classification: CLASS II- Mild systemic disease (i.e. well-controlled diabetes, hypertension, asthma, cigarette smoking) Janee Score Preprocedure Postprocedure Activity 2- Moves 4 extremities sustained head lift Activity 2- Moves 4 extremities sustained head lift Circulation 2- SBP +/= 20 points of pre-anesthetic level Circulation 2- SBP +/= 20 points of pre-anesthetic level Consciousness 2- Awake and alert oriented x 3 Consciousness 2- Awake and alert oriented x 3 O2 Saturation 2- Able to maintain O2 satruation of 92% on room air O2 Saturation 2- Able to maintain O2 satruation of 92% on room air Respiratory 2- Able to deep breathe and cough well Respiratory 2- Able to deep breathe and cough well Total Score 10 Total Score 10 Contrast Agent: Isovue Diagnostic Contrast: 78 ml Total Contrast: 78 ml Fluoro Dose: 236 mGy Activated Clotting Time Time Seconds to Clot 05:06 PM 174 Procedure Log Time Note Enter By 04:11 PM Pt arrived to recyclable materials collector 1 at 16:11 [email or web address] 04:11 PM Karmen Dewitt RT (R) Position: Scrub Time in: 16:11 [email or web address] 04:11 PM Duyen Perea RT (R) Position: Monitor Time in: 16:11 [email or web address] 04:11 PM Belinda Price RN Position: Weekend Caregiver Time in: 16:11 [email or web address] 04:11 PM Patient charges- Angio tray pack, Navilyst 3mm J, Pulse Oximetry and ACIST tubing and transducer [email or web address] 04:11 PM Case Delayed No [email or web address] 04:11 PM Physician arrived 16:11 [email or web address] 04:11 PM Meet and aeljandra completed [email or web address] 04:11 PM Sign in performed according to hospital policy. [email or web address] 04:11 PM Procedure start 16:11 [email or web address] 04:12 PM Time: 16:12 Patient comfortable and pain free: No c/o chest pain [email or web address] 04:16 PM Vitals capture started with the following parameters, Patient=Adult, Interval=5 min, Initial Pqcgjkhu=063 mmHg, Deflation Rate=3 mmHg, Cuff placed on Right Arm 04:17 PM HR=72 bpm, SUCT=657/86 mmhg, SpO2=98.0 %, Comment=A-Fib 04:17 PM Clinical Presentation: Non-STEMI :18 PM Time: 16:18 Oxygen on at 2 L/min per nasal cannula by Belinda Price RN :19 PM Time: 16:19 Versed 1 mg Intravenous Given by Belinda Price RN :19 PM Time: 16:19 Fentanyl 50 mcg Intravenous Given by Belinda Price RN [facility] 04:24 PM HR=24 bpm, KSBU=022/77 mmhg, SpO2=99.0 %, Resp=15 B/min, Comment=A-Fib 04:24 PM Hair removed from procedure site in procedure lab using clippers. Bilateral groin prepped with Chloraprep by Duyen Perea (R), then patient was draped. Skin intact. [facility]:24 PM ASA Class CLASS II- Mild systemic disease (i.e. well-controlled diabetes, hypertension, asthma, cigarette smoking) [facility]: Time: 16:12 Patient comfortable and pain free: Yes [facility]: PM Time: 16:25LOC: 5 = Fully awake and oriented or at pre-proc level dsp 04:28 PM HR=65 bpm, SSNE=937/65 mmhg, SpO2=99.0 %, Resp=20 B/min, Comment=A-Fib 04:32 PM HR=64 bpm, JIWH=257/69 mmhg, SpO2=98.0 %, Resp=10 B/min, Comment=A-Fib 04:33 PM Time out performed according to hospital policy [email or web address] 04:34 PM Pressure channel 1 zero failed. 04:34 PM Pressure channel 1 zeroed. 04:34 PM Time: 16:34 10 ml Lidocaine 2% to right groin Subcutaneous Given by Philomena Paniagua MD dspell 04:35 PM Micro-Introducer Kit utilized for sheath placement [email or web address] 04:37 PM HR=66 bpm, DJNL=614/74 mmhg, SpO2=99.0 %, Resp=24 B/min, Comment=A-Fib 04:37 PM Dilating vessel with 5 Fr Dilator [email or web address] 04:39 PM Access obtained by percutaneous puncture. 5Fr 10cm Terumo Temple sheath placed in right Femoral artery. [id number] dspellman 04:40 PM Time: 16:25 Patient comfortable and pain free: Yes [email or web address] 04:40 PM Time: 16:25LOC: 4 = Oriented but drowsy [email or web address] 04:42 PM HR=74 bpm, QKBU=207/64 mmhg, SpO2=99.0 %, Resp=17 B/min, Comment=A-Fib 04:43 PM 5Fr FR 4 catheter inserted over the wire DN [email or web address] 04:43 PM Recorded Pressure: Ao, HR=66, Condition=Condition 1 (Aorta) Ao 114/65/87 04:44 PM SVG to the 1st OM angio performed in multiple views. [email or web address] 04:45 PM Left ZARA to the LAD angio performed in multiple views. [email or web address] 04:46 PM Recorded Pressure: Ao, HR=65, Condition=Condition 1 (Aorta) Ao 103/58/80 04:47 PM HR=65 bpm, VJDP=756/61 mmhg, SpO2=99.0 %, Resp=16 B/min, Comment=A-Fib 04:48 PM Catheter removed [email or web address] 04:48 PM 5Fr FL 4 catheter inserted over the wire DN [email or web address] 04:49 PM LCA angiography performed in multiple views. [email or web address] 04:51 PM Catheter removed dspellman 04:51 PM 5Fr Pigtail catheter inserted over the wire DN dspellman 04:51 PM Catheter selectively placed in left ventricle dspellman 04:51 PM Recorded Pressure: LV, HR=81, Condition=Condition 1 (Left Ventricle) LV 6/6/6 04:52 PM HR=83 bpm, FNMI=819/70 mmhg, SpO2=98 %, Resp=14 B/min 04:52 PM Recorded Pressure: LV, HR=67, Condition=Condition 1 (Left Ventricle) LV 109/29/22 04:53 PM Recorded Pressure: LV, Ao, HR=77, Condition=Condition 1 (Left Ventricle) LV 116/16/17, (Aorta) Ao 96/21/50 04:54 PM edp measured :55 PM Time: 16:40LOC: 4 = Oriented but drowsy dsp:55 PM Time: 16:40 Patient comfortable and pain free: Yes 04:57 PM HR=70 bpm, ZEQR=272/72 mmhg, SpO2=98.0 %, Resp=19 B/min 05:00 PM Procedure completed at 17:00 05:01 PM Sign out completed: Radiation Dose 236 mGy Fluoro Time: 4.8 Isovue 370 - 200ml contrast 78 ml given by Philomena Paniagua MD. Complications: NoneCardiac Rehab Consult needed: NoConfirmed administered medications: Yes 05:01 PM Isovue 370 - 200ml,1 Bottle(s) used. 05:01 PM Sheath left in place to be pulled on floor/holding areaV+Pad 05:01 PM Estimated Blood Loss: minimal 05:02 PM Post ECG Atrial Fibrillation dsp 05:02 PM HR=27 bpm, YVRT=375/76 mmhg, SpO2=95.0 %, Resp=17 B/min 05:02 PM Post Blood Pressure 119/76 dspell 05:02 PM 17:02 Post Pulses Bilateral DP & PT Doppler dsp 05:02 PM Information taught Cardiac Cath 05:03 PM Education needs Procedure, Plan of Care, and Responsibilities of Patient in Care dspell 05:03 PM Learning barriers :None dspell 05:03 PM Education Methods Verbal dsp 05:03 PM Education evaluation Able to repeat information ell 05:03 PM Site status No bleeding/hematoma - Rt Groin as reported by Karmen Dewitt RT (R) at 17:03 dspell 05:03 PM Opsite applied dspell 05:03 PM Delay to floor No [email or web address] 05:03 PM Family placed in consult room. [email or web address] 05:06 PM At 17:06 the ACT was 174 seconds. [email or web address] 05:09 PM Report given to cathryn HARVEY Pt taken to ICU Room #7. 17:08 [email or web address] 05:09 PM Patient out of room: 17:09 [email or web address] 05:09 PM CathStat 05:10 PM Coronary Dominance: right [email or web address] 05:10 PM Lesion found in LMCA. Pre Stenosis: 50 Pre FRANCES Flow: [email or web address] 05:10 PM Lesion found in Mid LAD. Pre Stenosis: 100 Pre FRANCES Flow: [email or web address] 05:10 PM Lesion found in Proximal RCA. Pre Stenosis: 100 Pre FRANCES Flow: dspellman 05:10 PM Left Main Coronary Artery with 50% stenosis dspellman 05:11 PM Mid/Distal Left Anterior Descending Coronary Artery and diagonal branches with 100% stenosis. If graft is supplying this area, 0 % stenosis dspellman 05:11 PM Right Coronary, Right Posterior Descending Arteries with Right Posterolateral and Acute Marginal branches with 100 % stenosis. If graft is supplying this area, 0 % stenosis dspellman 05:24 PM Lesion found in LMCA. Pre Stenosis: 40 Pre FRANCES Flow: [email or web address] Complications Complication None Hemodynamics Pressures Site Systolic/A Wave Diastolic/V Wave Mean AO 114 65 87 AO 103 58 80 LV 6 6 6 LV 109 29 22 LV 116 16 17 AO 96 21 50 Post Procedure Information Blood Pressure: 119/76 mmHg Rhythm: Atrial Fibrillation Post procedural instructions were given Closure Device Time Device Success/Fail 06/24/2017 5:09:00 PM Manual Compression Site Checks Time Location Status Staff Sheath In? Note 05:03 PM Rt Groin No bleeding/hematoma Karmen Dewitt RT (R) Pulses Time Site Pre-Procedure Post-Procedure Note 06/24/2017 4:15:00 PM Bilateral radial 2+ 06/24/2017 4:15:00 PM Bilateral DP None 06/24/2017 4:15:00 PM Bilateral PT Doppler 5:02:00 PM Bilateral DP & PT Doppler Updated by Karmen Dewitt RT(R) on 06/24/2017 5:32:17 PM electronically signed on 06/24/2017 5:33:12 PM with status of Final
[2017-06-25] MEDS: Nitroglycerin 0.4 MG TAB.SUBL SL PRN (02:00)
[2017-06-25] MEDS: Heparin 25,000 UNIT/500 ML D5W 25,000 UNIT/500 ML BAG IVC SCH (02:17)
[2017-06-25] MEDS: Isosorbide MONOnitrate (24 HR) 30 MG TAB.ER.24H PO SCH (08:00)
[2017-06-25] MEDS: *HR* Ticagrelor 90 MG TABLET PO SCH ×2 (08:00→21:16)
[2017-06-25] MEDS: Metoprolol 100 MG TABLET PO SCH ×2 (08:00→21:17)
[2017-06-25] MEDS: Amiodarone Premix 360 MG/200 ML BAG IVC SCH ×2 (08:00→19:58)
--- NOTE | 2017-06-25 09:54 | Electrophysiology Consult Note ---
Date of Encounter: 06/25/17 Time of Encounter: 09:48 Assessment and Plan (1) V-tach Current Visit: Yes Status: Resolved Found to have sustained VT on telemetry on presentation to [facility] ED. ECG with VT, HR 129. VT rate slower than ICD detection rate. Patient was shocked 05/15/17 for VT per ICD report. Started on IV amiodarone bolus and IV gtt after sotalol wash-out. Amiodarone gtt started 06/23/17 at 2200. LHC completed and showed stable CAD. No intervention. Known ICMP. TTE shows EF 20-25%. Potassium and magnesium WNL. Continue amiodarone IV. I will discuss duration of IV amiodarone and oral dosing with Dr. Cruz Godoy. No recurrent VT seen on 24 hour telemetry review. (2) Paroxysmal atrial fibrillation Current Visit: No Status: Chronic Known history of PAF. Recently started on sotalol by his Sharepoint Designer Developer Dr. Cox. Sotalol stopped due to VT. Amiodarone started. Intermittent PAF seen during stay. Average HR on telemetry was 68 bpm over last 24 hours. Currently AV paced with frequent PAC. On xarelto for AC. Restart at discharge. Discussion w patient/family: The assessment and plan as outlined above was discussed with the patient and/or family members who expressed understanding and agreement. All questions were answered. Thank you for involving us in the care of your patient. Please call with any questions. History of Present Illness Consult date: 06/25/17 Requesting physician: James Long Consult reason: VT Chief complaint: Chest pain History of present illness: Mr. Turner is a 76 year old male with past medical history of 2V CABG in 2016, NICMP with ICD, and PAF who presented to [facility] ED with the c/o severe chest pain and feeling unwell. He was found to be in ventricular tachycardia. He was not shocked by his device due to HR only being 129-130. ICD check was completed and showed his VT monitor rate was 133 and detection rate was 167. He was noted to have received therapy on 05/15/17 for VT and possible monitored VT on 05/22/17. During his hospital stay he was started on amiodarone gtt. Troponin found to be as high as 33.56. He underwent cardiac catherization and found to have 2/2 patent bypass grafts (VIRK-LAD, SVG-OM), patent stent in the LCx artery and GRIDDLE COOK of the RCA with left to right collaterals. No intervention at that time. EP consulted for ventricular tachycardia. Past Med Surg Social Fam HX - Past Medical History Attestation: Yes The following information was validated with the patient. Medical history: asthma, atrial fibrillation, cardiomyopathy, CHF, COPD, coronary artery disease, hyperlipidemia, hypertension, myocardial infarction, other Psychiatric history: no psych history - Past Surgical History Surgical History: angioplasty/stent, coronary bypass (CABG), LE stent(s), LE vascular intervention, pacemaker/AICD - Social History Smoking Status: Former smoker Smokeless Tobacco Status: No Alcohol use: none Drug use: none - Family History Mother Adopted: No Family Member Ethnicity: Non- Living Status: Hx Family Cardiac Disorders: Yes Hx Family Respiratory Disorders: Yes Hx Family Neurologic Disorders: Yes (dementia) Medications and Allergies Albuterol Sulfate [Ventolin Hfa] 90 mcg IH DAILY 06/23/17 [History] Atorvastatin [Lipitor] 20 mg PO HS 06/23/17 [History] Cholecalciferol (Vitamin D3) [Vitamin D] 2,000 unit PO DAILY 06/23/17 [History] Isosorbide DInitrate [Isosorbide Dinitrate] 30 mg PO DAILY 06/23/17 [History] Metoprolol Tartrate 100 mg PO BID 06/23/17 [History] Montelukast [Singulair] 10 mg PO DAILY 06/23/17 [History] Ranolazine [Ranexa] 1,000 mg PO BID 06/23/17 [History] Rivaroxaban [Xarelto] 15 mg PO DAILY 06/23/17 [History] Sotalol [Betapace] 80 mg PO Q12HR 06/23/17 [History] Ticagrelor [Brilinta] 90 mg PO BID 06/23/17 [History] 3 Allergy/AdvReac Type Severity Reaction Status Date / Time No Known Allergies Allergy Verified 06/22/17 22:50 All Systems Review: The remainder of the systems were reviewed and are negative Physical Examination Vital Signs, Last 4 Hours Temp Pulse Resp BP Pulse Ox 06/25/17 09:00 62 10 124/75 97 06/25/17 08:00 65 13 120/76 96 06/25/17 07:52 97.4 F L 06/25/17 07:00 65 28 106/84 98 06/25/17 06:00 62 14 131/72 95 General: Conversant, No Apparent Distress HEENT: Atraumatic, Normocephaly, Mucus Membranes Moist Neck: No JVD, Normal carotid pulses Cardiac: Reg Rate and Rhythm, Normal S1 and S2, No Murmur, Other (Irregular, AV paced with PAC on tele with atrial tachycardia. ) Lungs: Normal Breath Sounds, No Wheeze, Rales, Rhonchi Neuro: Alert and responsive, No focal deficits noted Abdomen: Soft, Non-Tender Skin: No rashes noted on visualized skin Musculoskeletal: No Chest Wall Tenderness Extremities: No Clubbing, No Cyanosis, No Edema, Normal Pulses Results 06/24/17 09:14 06/24/17 09:14 Lab Results 06/24/17 06/24/17 06/24/17 09:14 09:14 09:14 WBC 5.9 Hgb 13.6 Hct 41.1 Plt Count 159 INR APTT 67.8 H Sodium 140 Potassium 4.0 Chloride 111 H Carbon Dioxide 23 BUN 15 Creatinine 0.88 Glucose 109 H Calcium 9.4 Troponin I 6.86 H* 06/24/17 06/24/17 09:14 09:14 WBC 6.1 Hgb 13.9 Hct 41.8 Plt Count 158 INR 1.6 APTT Sodium Potassium Chloride Carbon Dioxide BUN Creatinine Glucose Calcium Troponin I - Imaging and Cardiology Echo: report reviewed Cardiac cath: report reviewed - EKG Interpretation EKG results cardiology: personally reviewed Consult Discharge Plan - Plan Referrals: Roberto Rodney DO [Primary Care Provider] -
[2017-06-25] MEDS: *HR* Amiodarone 200 MG TABLET PO SCH ×2 (14:40→21:17)
[2017-06-25] MEDS: *HR* Rivaroxaban 10 MG TABLET PO SCH (16:34)
--- NOTE | 2017-06-25 16:34 | Internal Med Progress Note ---
Date of Encounter: 06/25/17 Time of Encounter: 16:27 - Assessment and plan (1) NSTEMI (non-ST elevated myocardial infarction) Current Visit: Yes Status: Acute Assessment and plan: Patient has a left heart Cath on 06/24, showed a stable CAD, no intervention required Continue current medications Severe ischemic cardiomyopathy TTE on 06/23 showed EF 20-25% (2) V-tach Current Visit: Yes Status: Resolved Assessment and plan: EP diesel bus mechanic was consulted, patient was started on IV amiodarone drip No recurrent V. tach, no ICD discharges (3) CAD (coronary artery disease) Current Visit: Yes Status: Chronic Assessment and plan: Continue current medications Qualifiers: Coronary Disease-Associated Artery/Lesion type: [place] artery [place] vs. transplanted heart: chitina heart Associated angina: without angina Qualified Code(s): I25.10 - Atherosclerotic heart disease of chit[place] coronary artery without angina pectoris (4) Essential hypertension Current Visit: Yes Status: Chronic (5) Congestive heart failure Current Visit: Yes Status: Chronic Qualifiers: Heart failure type: combined systolic and diastolic Heart failure chronicity: chronic Qualified Code(s): I50.42 - Chronic combined systolic ( congestive) and diastolic (congestive) heart failure (6) Ischemic cardiomyopathy Current Visit: Yes Status: Acute (7) Paroxysmal atrial fibrillation Current Visit: No Status: Chronic Assessment and plan: patient was on sotalol and Xarelto as an outpatient; currently on heparin drip and amiodarone drip - Time Spent With Patient Total time spent is greater than 50% in coordination of care (as documented) at patient's floor/unit and/or counseling patient: - Subjective Interval history: Mr. Turner is a 76 year old male with history of significant heart disease including CAD with history of 2 CABGs, and apparently 9 stents, pacer, ICD insertion, hypertension, COPD, peripheral vascular disease status post lower shortly bypass, mitral valvuloplasty who presented to the [facility] ED with chest pain that had been going on for several hours. The patient says that he was sitting watching TV when the chest pain started, it was 9 out of 10 in intensity and did not seem to radiate. At the [facility] ED, the patient did have a EKG which demonstrated concerns for ST elevation in leads 3 and aVF and there was concern about STEMI. Dr. Alyssa Godoy with cardiology was notified and the patient was transferred to [facility] for left heart catheterization however on transport the patient developed significant hypotension and tachycardia with heart rates greater than 130. Cardiology reviewed the EKG, patient has significant a troponin 7.83. She will patient was admitted for non-ST elevated AL on 06/23. V. tach, ischemic cardiomyopathy EF 30%. Patient had left heart cath on 06/24. He tolerated procedure well. LHC showed stable CAD. No intervention. Known ICMP. TTE shows EF 20-25% Sotalol was d/lucio by cardiology, started amiodarone drip, will need to watch overnight in ICU - Constitutional Vitals: Temp Pulse Resp BP Pulse Ox 98.2 F 65 10 115/55 98 06/25/17 11:52 06/25/17 14:00 06/25/17 14:00 06/25/17 14:00 06/25/17 14:00 General appearance: Present: cooperative, A&O X 3, pleasant, no acute distress Exam: CONSTITUTIONAL: patient appears as an age appropriate male] in no acute distress. EYES Clear sclerae, bilateral pupils are equal, reactive to light. EMOI. RESPIRATORY: No accessory muscle use, bilateral clear to auscultation, no wheezing, no crackles/rales. CARDIOVASCULAR: Regular heart rate, normal S1 and S2, no murmurs GASTROINTESTINAL: bowel sounds present, soft, no tenderness. MUSCULOSKELETAL: Joints in normal range of motion, no clubbing, no edema, no cyanosis. Bilateral peripheral pulses 2+. NEUROLOGIC: CN II to XII are grossly intact, no focal neurological deficit. Internal Medicine: Result - Labs CBC & Chem 7: 06/24/17 09:14 06/24/17 09:14 - ABG Interpretation ABG results: PT/INR, D-dimer PT 16.9 Seconds (9.4-12.1) H 06/24/17 09:14 Consult Discharge Plan - Plan Referrals: Roberto Rodney DO [Primary Care Provider] -
[2017-06-26] MEDS: *HR* Amiodarone 200 MG TABLET PO SCH ×3 (04:27→20:22)
[2017-06-26] MEDS: Amiodarone Premix 360 MG/200 ML BAG IVC SCH (05:49)
[2017-06-26] MEDS: Isosorbide MONOnitrate (24 HR) 30 MG TAB.ER.24H PO SCH (08:09)
[2017-06-26] MEDS: *HR* Ticagrelor 90 MG TABLET PO SCH ×2 (08:09→20:22)
[2017-06-26] MEDS: Metoprolol 100 MG TABLET PO SCH ×2 (08:09→20:22)
--- NOTE | 2017-06-26 10:28 | Electrophysiology ProgressNote ---
Date of Encounter: 06/26/17 Time of Encounter: 10:22 Assessment and Plan (1) V-tach Current Visit: Yes Status: Resolved Found to have sustained VT on telemetry on presentation to [facility] ED. ECG with VT, HR 129. VT rate slower than ICD detection rate. Patient was shocked 05/15/17 for VT per ICD report. [facility] completed and showed stable CAD. No intervention. Known ICMP. Potassium and magnesium WNL. TTE shows EF 20-25%. Started on IV amiodarone bolus and IV gtt after sotalol wash-out. Amiodarone gtt started 06/23/17 at 2200. Oral load of amiodarone started yesterday. Continue IV and oral IV load. I will discuss IV amiodarone duration with Dr. Godoy. Telemetry review shows less VT overnight. 5 runs seen in the last 12 hours up to 6 beats long. C/o chest pain yesterday evening relieved with one SL NTG at 0200. No VT seen at that time. (2) Paroxysmal atrial fibrillation Current Visit: No Status: Chronic Known history of PAF. Recently started on sotalol by his Admitting Office Escort Dr. Cox. Sotalol stopped due to VT. Amiodarone started. Intermittent PAF seen during stay. Average HR on telemetry was 67 bpm over last 24 hours. Currently AV paced with frequent PAC. On xarelto for AC. Restart at discharge. Discussion w patient/family: The assessment and plan as outlined above was discussed with the patient and/or family members who expressed understanding and agreement. All questions were answered. Thank you for involving us in the care of your patient. Please call with any questions. Subjective Principal diagnosis: NSVT Interval history: Mr. Turner reports chest pain relieved with one NTG last night. Denies palpitations. Objective Vital Signs, Last 4 Hours Temp Pulse Resp BP Pulse Ox 06/26/17 09:00 68 12 130/76 95 06/26/17 08:00 97.5 F L 60 12 126/75 96 06/26/17 07:00 65 12 115/60 96 General: Conversant, No Apparent Distress HEENT: Atraumatic, Normocephaly, Mucus Membranes Moist Neck: No JVD, Normal carotid pulses Cardiac: Reg Rate and Rhythm, Normal S1 and S2, No Murmur, Other (AV paced on monitor) Lungs: Normal Breath Sounds, No Wheeze, Rales, Rhonchi Neuro: Alert and responsive, No focal deficits noted Abdomen: Soft, Non-Tender Skin: No rashes noted on visualized skin Musculoskeletal: No Chest Wall Tenderness Extremities: No Clubbing, No Cyanosis, No Edema, Normal Pulses Results 06/24/17 09:14 06/24/17 09:14 Lab Results 06/25/17 23:15 Troponin I 3.04 H* - EKG Interpretation EKG results cardiology: personally reviewed Consult Discharge Plan - Plan Referrals: Roberto Rodney DO [Primary Care Provider] -
--- NOTE | 2017-06-26 11:37 | Event Note ---
Date of Encounter: 06/26/17 Time of Encounter: 11:35 Patient seen and examined earlier today. Hemodynamics remained stable. No VT overnight. Appreciate EP recommendations. Continue general cardiology recommendations. We will continue to monitor. Patient and family updated. All questions were answered. Thanks, James Long DO, FACC
--- NOTE | 2017-06-26 12:32 | Electrocardiograph Report ---
[place] [address] Test Date: 2017-06-25 Pat Name: Blaise Turner Department: 109 Room: [facility] Gender: M Toddler Guide: : 1940 Requested By: Ramona Cintron Order Number: [id number] Reading MD: James Long Measurements Intervals [place] Rate: 61 P: 93 HI: 275 QRS: 89 QRSD: 216 T: 0 QT: 520 QTc: 524 Interpretive Statements ELECTRONIC ATRIAL PACEMAKER ELECTRONIC VENTRICULAR PACEMAKER Electronically Signed On 06-26-2017 12:30:58 EDT by James Long
--- NOTE | 2017-06-26 14:27 | Internal Med Progress Note ---
Date of Encounter: 06/26/17 Time of Encounter: 14:24 - Assessment and plan (1) V-tach Current Visit: Yes Status: Resolved Assessment and plan: Patient was found to be in V. tach with heart rate in the 120 to 130s is currently controlled Recommended stopping sotalol, amiodarone drip was started on June 23 at 10 PM. Load with amiodarone was a started, cardiology recommendations appreciated (2) NSTEMI (non-ST elevated myocardial infarction) Current Visit: Yes Status: Acute Assessment and plan: No further episodes of sustained V. tach VT rate slower than ICD dictation rate. LHC showed stable CAD. No intervention. Known ICMP. TTE shows EF 20-25%. (3) Paroxysmal atrial fibrillation Current Visit: No Status: Chronic Assessment and plan: Patient with history of paroxysmal atrial fibrillation and on Xarelto (4) Essential hypertension Current Visit: Yes Status: Chronic Assessment and plan: Controlled; metoprolol (5) Ischemic cardiomyopathy Current Visit: Yes Status: Acute Assessment and plan: Patient with known LVEF of 30% on echocardiogram 04/2017 with noted severe global left ventricle systolic dysfunction Patient does not appear to have exacerbation of heart failure Continue beta tristan and Imdur Cardiology following and appreciate recommendations - Time Spent With Patient Total time spent is greater than 50% in coordination of care (as documented) at patient's floor/unit and/or counseling patient: - Subjective Interval history: Denies any chest pain at the moment, denies any shortness of breath, no abdominal pain fevers or chills, no diarrhea or dysuria - Constitutional Vitals: Temp Pulse Resp BP Pulse Ox 97.6 F 60 16 108/67 96 06/26/17 12:30 06/26/17 14:14 06/26/17 14:14 06/26/17 14:14 06/26/17 14:14 General appearance: Present: cooperative, A&O X 3, pleasant, no acute distress - Head Head exam: Present: atraumatic, normocephalic - Eye Eye exam: Present: PERRL, conjuntiva pink, sclera anicteric Pupils: Present: PERRL - Neck Neck exam general surgery: Present: supple, trachea midline. Absent: lymphadenopathy - Respiratory Respiratory exam: Present: CTAB. Absent: accessory muscle use, rales, rhonchi, wheezes - Cardiovascular Cardiovascular exam: Present: irregular rhythm, RRR, +S1, +S2. Absent: diastolic murmur, gallop, rubs, systolic murmur - GI/Abdominal GI/Abdominal exam: Present: normal bowel sounds, soft, no peritoneal signs. Absent: distended, tenderness - Extremities Exam Extremities exam: Present: warm, radial pulses palpable and symmetrical. Absent : calf tenderness, cyanotic, pedal edema - Neurological Exam Neurological exam: Present: CN II-XII intact, oriented X3, no focal deficits. Absent: pronater drift, facial droop, speech deficit - Skin Skin exam: Present: dry, intact Internal Medicine: Result - Labs CBC & Chem 7: 06/24/17 09:14 06/24/17 09:14 Labs: Cardiac Enzymes 06/25/17 Range/Units 23:15 Troponin I 3.04 H* (< 0.04) ng/mL - ABG Interpretation ABG results: PT/INR, D-dimer PT 16.9 Seconds (9.4-12.1) H 06/24/17 09:14 Consult Discharge Plan - Plan Referrals: Roberto Rodney DO [Primary Care Provider] -
[2017-06-26] MEDS: *HR* Rivaroxaban 10 MG TABLET PO SCH (20:22)
[2017-06-27] MEDS: *HR* Amiodarone 200 MG TABLET PO SCH ×2 (06:04→20:38)
[2017-06-27] MEDS: Isosorbide MONOnitrate (24 HR) 30 MG TAB.ER.24H PO SCH (09:19)
[2017-06-27] MEDS: Metoprolol 100 MG TABLET PO SCH ×2 (09:20→20:38)
[2017-06-27] MEDS: *HR* Ticagrelor 90 MG TABLET PO SCH ×2 (09:20→20:38)
--- NOTE | 2017-06-27 11:09 | Electrophysiology ProgressNote ---
Date of Encounter: 06/27/17 Time of Encounter: 10:49 Assessment and Plan (1) V-tach Current Visit: Yes Status: Resolved Found to have sustained VT on telemetry on presentation to [facility] ED. ECG with VT, HR 129. VT rate slower than ICD detection rate. Patient was shocked 05/15/17 for VT per ICD report. C completed and showed stable CAD. No intervention. Known ICMP. Potassium and magnesium WNL. TTE shows EF 20-25%. Started on IV amiodarone bolus and IV gtt after sotalol wash-out. Amiodarone gtt started 06/23/17 at 2200. Oral load of amiodarone started 06/25/17. IV amiodarone discontinued yesterday. No recurrent VT seen on telemetry. Continue oral amiodarone. Discussed with Dr. Godoy. Change amiodarone to 400 mg BID for one week and then convert to 400 mg daily. Out-pt f/u will be made with [facility] in 1-2 weeks. Please call with questions. (2) Paroxysmal atrial fibrillation Current Visit: No Status: Chronic Known history of PAF. Recently started on sotalol by his Cellar Pumper Dr. Cox. Sotalol stopped due to VT. Amiodarone started. Intermittent PAF seen during stay. Average HR on telemetry was 67 bpm over last 24 hours. Currently AV paced with frequent PAC. On xarelto for AC. Discussion w patient/family: The assessment and plan as outlined above was discussed with the patient and/or family members who expressed understanding and agreement. All questions were answered. Thank you for involving us in the care of your patient. Please call with any questions. Subjective Principal diagnosis: NSVT Interval history: Mr. Turner reports chest pain relieved with one NTG last night. Denies palpitations. Objective Vital Signs, Last 4 Hours Temp Pulse Resp BP Pulse Ox 06/27/17 10:41 60 17 137/74 96 06/27/17 09:26 62 14 109/64 98 06/27/17 08:20 97.5 F L General: Conversant, No Apparent Distress HEENT: Atraumatic, Normocephaly, Mucus Membranes Moist Neck: No JVD, Normal carotid pulses Cardiac: Reg Rate and Rhythm, Normal S1 and S2, No Murmur Lungs: Normal Breath Sounds, No Wheeze, Rales, Rhonchi Neuro: Alert and responsive, No focal deficits noted Abdomen: Soft, Non-Tender Skin: No rashes noted on visualized skin Musculoskeletal: No Chest Wall Tenderness Extremities: No Clubbing, No Cyanosis, No Edema, Normal Pulses Results 06/24/17 09:14 06/24/17 09:14 - Imaging and Cardiology Echo: report reviewed Cardiac cath: report reviewed - EKG Interpretation EKG results cardiology: personally reviewed Consult Discharge Plan - Plan Referrals: Roberto Rodney DO [Primary Care Provider] -
--- NOTE | 2017-06-27 13:24 | Internal Med Progress Note ---
Date of Encounter: 06/27/17 Time of Encounter: 13:22 - Assessment and plan (1) V-tach Current Visit: Yes Status: Resolved Assessment and plan: Patient was found to be in V. tach with heart rate in the 120 to 130s is currently controlled Recommended stopping sotalol, amiodarone drip was started on June 23 at 10 PM. Decrease dose of amiodarone down to 400 mg twice a day for one week (day #1), then convert to 400 mg daily as outpatient cardiology consulted May discharge in the morning if stable (2) NSTEMI (non-ST elevated myocardial infarction) Current Visit: Yes Status: Acute Assessment and plan: No further episodes of sustained V. tach VT rate slower than ICD dictation rate. LHC showed stable CAD. No intervention. Known ICMP. TTE shows EF 20-25%. (3) Paroxysmal atrial fibrillation Current Visit: No Status: Chronic Assessment and plan: Patient with history of paroxysmal atrial fibrillation and on Xarelto (4) Essential hypertension Current Visit: Yes Status: Chronic Assessment and plan: Controlled; metoprolol (5) Ischemic cardiomyopathy Current Visit: Yes Status: Acute Assessment and plan: Patient with known LVEF of 30% on echocardiogram 04/2017 with noted severe global left ventricle systolic dysfunction Patient does not appear to have exacerbation of heart failure Continue beta tristan and Imdur Cardiology following and appreciate recommendations - Time Spent With Patient Total time spent is greater than 50% in coordination of care (as documented) at patient's floor/unit and/or counseling patient: - Subjective Interval history: No new complaints Denies any chest pain at the moment, denies any shortness of breath, no abdominal pain fevers or chills, no diarrhea or dysuria - Constitutional Vitals: Temp Pulse Resp BP Pulse Ox 97.6 F 64 16 113/71 100 06/27/17 12:18 06/27/17 12:25 06/27/17 12:25 06/27/17 12:25 06/27/17 12:25 General appearance: Present: cooperative, A&O X 3, pleasant, no acute distress - Head Head exam: Present: atraumatic, normocephalic - Eye Eye exam: Present: PERRL, conjuntiva pink, sclera anicteric Pupils: Present: PERRL - Neck Neck exam general surgery: Present: supple, trachea midline. Absent: lymphadenopathy - Respiratory Respiratory exam: Present: CTAB. Absent: accessory muscle use, rales, rhonchi, wheezes - Cardiovascular Cardiovascular exam: Present: RRR, +S1, +S2. Absent: diastolic murmur, gallop, rubs, systolic murmur - GI/Abdominal GI/Abdominal exam: Present: normal bowel sounds, soft, no peritoneal signs. Absent: distended, tenderness - Extremities Exam Extremities exam: Present: warm, radial pulses palpable and symmetrical. Absent : calf tenderness, cyanotic, pedal edema - Neurological Exam Neurological exam: Present: CN II-XII intact, oriented X3, no focal deficits. Absent: pronater drift, facial droop, speech deficit - Skin Skin exam: Present: dry, intact Internal Medicine: Result - Labs CBC & Chem 7: 06/24/17 09:14 06/24/17 09:14 - ABG Interpretation ABG results: PT/INR, D-dimer PT 16.9 Seconds (9.4-12.1) H 06/24/17 09:14 Consult Discharge Plan - Plan Referrals: Roberto Rodney DO [Primary Care Provider] -
[2017-06-27] MEDS: *HR* Rivaroxaban 10 MG TABLET PO SCH (17:24)
--- NOTE | 2017-06-28 07:52 | Discharge Summary ---
- NOTES TO OUTPATIENT PROVIDER Notes to Outpatient Provider: Follow-up with primary care physician within the next 7 days. Follow-up with cardiology within the next 2 weeks. Continue taking amiodarone 400 mg twice a day for 6 more days and then decreased to only 400 mg once daily. Stop taking Ranexa and sotalol. Start lisinopril 2.5 mg daily Date of Encounter: 06/28/17 Time of Encounter: 07:50 - Discharge Diagnosis (1) V-tach Priority: Primary Status: Resolved Assessment and Plan: Sustained V. tach likely related to non-STEMI (2) NSTEMI (non-ST elevated myocardial infarction) Priority: Primary Status: Acute (3) Paroxysmal atrial fibrillation Priority: Secondary Status: Chronic (4) Essential hypertension Priority: Secondary Status: Chronic (5) Ischemic cardiomyopathy Priority: Secondary Status: Acute Hospital course: Mr. Turner is a 76 year old male with a relevant past medical history of asthma , AICD, CAD s/p CABG and PCI, ICM s/p ICD, VT, PAD, HTN, HLD, a.fib on xarelto in outpateint setting, previous tobacco abuse. Patient presented to [facility] with complaints of chest pain. Patient reported for the past month has had intermittent chest pain that is non-exertional. Had taken nitro with no relief. Was having severe chest pain that he could not get relief from. States he took multiple nitro without relief. Presented to [facility], was noted to be in VT, however patient self converted without intervention. Last cardiac catheterization at [facility] demonstrated patent grafts with severe poarch vessel disease. HC 01/2017 [facility] with 80% proximal LAD, VIRK to LAD patent, severe diagonal 2 disease with micro collaterals, 70% proximal circumflex, SVG to OM 1 patent, LINE WALKER RCA with collaterals from LAD and circumflex. Medical therapy recommended at that time. Troponins peaked at 33.56, was started on a heparin drip. Patient was found to be in V. tach with heart rate in the 120 to 130s is currently controlled VT rate slower than ICD dictation rate. C during this hospitalization showed stable CAD. No intervention. Known ICMP. TTE shows EF 20-25%. Patient with known LVEF of 30% on echocardiogram 04/2017 with noted severe global left ventricle systolic dysfunction Patient does not appear to have exacerbation of heart failure Cardiology recommended stopping sotalol, amiodarone drip was started on June 23 at 10 PM. Decreased dose of amiodarone down to 400 mg twice a day for one week (day #2), then convert to 400 mg daily as outpatient cardiology follow-up within 2 weeks - Time Spent with Patient Total time spent providing and/or coordinating discharge services: Greater than 30 minutes (40 min) - Discharge Medications Prescriptions: Amiodarone [Cordarone] 400 mg PO DAILY 30 Days tablet Lisinopril 2.5 mg PO DAILY #30 tablet Omeprazole [PriLOSEC] 20 mg PO DAILY@0630 #30 capsule. Home Medications: Albuterol Sulfate [Ventolin Hfa] 90 mcg IH DAILY 06/23/17 [History] Atorvastatin [Lipitor] 20 mg PO HS 06/23/17 [History] Cholecalciferol (Vitamin D3) [Vitamin D3] 2,000 unit PO DAILY 06/23/17 [History] Isosorbide DInitrate [Isosorbide Dinitrate] 30 mg PO DAILY 06/23/17 [History] Metoprolol Tartrate 100 mg PO BID 06/23/17 [History] Montelukast [Singulair] 10 mg PO DAILY 06/23/17 [History] Rivaroxaban [Xarelto] 15 mg PO DAILY 06/23/17 [History] Ticagrelor [Brilinta] 90 mg PO BID 06/23/17 [History] Amiodarone [Cordarone] 400 mg PO DAILY 30 Days tablet 06/28/17 [Rx] Lisinopril 2.5 mg PO DAILY #30 tablet 06/28/17 [Rx] Omeprazole [PriLOSEC] 20 mg PO DAILY@0630 #30 capsule. 06/28/17 [Rx] Allergies/Adverse Reactions: 3 Allergy/AdvReac Type Severity Reaction Status Date / Time No Known Allergies Allergy Verified 06/22/17 22:50 Date of admission: 06/23/17 01:00 Primary care physician: Roberto Rodney DO Consults: 06/23/17 11:23 Consult to Cardiac Rehabilitation-Phase1 [CONS] Routine Comment: Reason for Consult: NSTEMI Call Completed: No 06/25/17 11:48 Consult to Electrophysiology (EP) [CONS] Routine Consulting Provider: Electrophysiology [facility] Reason for Consult: VT Call Completed: Yes - Constitutional Vitals: Temp Pulse Resp BP Pulse Ox 97.6 F 77 16 110/75 98 06/28/17 06:55 06/28/17 06:55 06/28/17 06:55 06/28/17 06:55 06/28/17 06:55 General appearance: Present: cooperative, A&O X 3, pleasant, no acute distress - Head Head exam: Present: atraumatic, normocephalic - Eye Eye exam: Present: PERRL, conjuntiva pink, sclera anicteric Pupils: Present: PERRL - Neck Neck exam general surgery: Present: supple, trachea midline. Absent: lymphadenopathy - Respiratory Respiratory exam: Present: CTAB. Absent: accessory muscle use, rales, rhonchi, wheezes - Cardiovascular Cardiovascular exam: Present: RRR, +S1, +S2. Absent: diastolic murmur, gallop, rubs, systolic murmur - GI/Abdominal GI/Abdominal exam: Present: normal bowel sounds, soft, no peritoneal signs. Absent: distended, tenderness - Extremities Exam Extremities exam: Present: warm, radial pulses palpable and symmetrical. Absent : calf tenderness, cyanotic, pedal edema - Neurological Exam Neurological exam: Present: CN II-XII intact, oriented X3, no focal deficits. Absent: pronater drift, facial droop, speech deficit - Skin Skin exam: Present: dry, intact - Patient Status Disposition: Home Health Service Condition: Good Overall status at discharge: patient is progressing back to baseline - Discharge Instructions Follow Up With: Roberto Rodney DO [Primary Care Provider] - - Diet and Activity Activity: increase activity as tolerated Diet: low fat, low cholesterol
--- NOTE | 2017-06-28 08:03 | Physician Discharge Referral ---
Home Health/Hosp Referral Info Transfer to: Home Health Provider in Charge Post Discharge: PCP - Diagnosis (1) V-tach Status: Resolved (2) NSTEMI (non-ST elevated myocardial infarction) Status: Acute (3) Paroxysmal atrial fibrillation Status: Chronic (4) Essential hypertension Status: Chronic (5) Ischemic cardiomyopathy Status: Acute - Respiratory Orders Smoking Cessation: Smoking cessation has been advised. For more information, call the Kiosked Tobacco Quit Line at 4-261-IWJM-NOW. - Diet/Nutrition Diet/Nutrition Orders: No Added Salt (FELICIA) - Services Needed Following services are medically necessary services: Home Health Aide, Physical Therapy, Occupational Therapy Home Care Orders: Follow-up with primary care physician within the next 7 days. Follow-up with cardiology within the next 2 weeks. Continue taking amiodarone 400 mg twice a day for 6 more days and then decreased to only 400 mg once daily. Stop taking Ranexa and sotalol. Start lisinopril 2.5 mg daily - Transfer Medications Prescriptions: Amiodarone [Cordarone] 400 mg PO DAILY 30 Days tablet Lisinopril 2.5 mg PO DAILY #30 tablet Omeprazole [PriLOSEC] 20 mg PO DAILY@0630 #30 capsule.dr Estrella Medications: Albuterol Sulfate [Ventolin Hfa] 90 mcg IH DAILY 06/23/17 [History] Atorvastatin [Lipitor] 20 mg PO HS 06/23/17 [History] Cholecalciferol (Vitamin D3) [Vitamin D3] 2,000 unit PO DAILY 06/23/17 [History] Isosorbide DInitrate [Isosorbide Dinitrate] 30 mg PO DAILY 06/23/17 [History] Metoprolol Tartrate 100 mg PO BID 06/23/17 [History] Montelukast [Singulair] 10 mg PO DAILY 06/23/17 [History] Rivaroxaban [Xarelto] 15 mg PO DAILY 06/23/17 [History] Ticagrelor [Brilinta] 90 mg PO BID 06/23/17 [History] Amiodarone [Cordarone] 400 mg PO DAILY 30 Days tablet 06/28/17 [Rx] Lisinopril 2.5 mg PO DAILY #30 tablet 06/28/17 [Rx] Omeprazole [PriLOSEC] 20 mg PO DAILY@0630 #30 capsule. 06/28/17 [Rx] Allergies/Adverse Reactions: 3 Allergy/AdvReac Type Severity Reaction Status Date / Time No Known Allergies Allergy Verified 06/22/17 22:50 Certification: Further, I certify that my clinical findings support that this patient is homebound (i.e. absences from home require considerable and taxing effort and are for medical reasons or judaism services or infrequently or short duration when for other reasons) because: Homebound Reason: Patient requires assistance of a person or device to safely leave home Attestation: My signature below is to certify that this patient is under my care and that I, or nurse practitioner, or a physician's assistant golf coach working with me, has a face-to -face encounter with this patient.
[2017-06-28] MEDS: Isosorbide MONOnitrate (24 HR) 30 MG TAB.ER.24H PO SCH (08:55)
[2017-06-28] MEDS: *HR* Amiodarone 200 MG TABLET PO SCH (08:56)
[2017-06-28] MEDS: *HR* Ticagrelor 90 MG TABLET PO SCH (08:56)
[2017-06-28] MEDS: Metoprolol 100 MG TABLET PO SCH (09:03)
[2017-06-28 11:30] VITALS: BP 123/67
== END 2017-06-28 14:22 | disposition home health service (06) | DRG 281 ==
LOC: EMEROO 22:48 → ICNU 06-23 01:00 → SUATTDRO 06-23 01:00 → ICNU 06-23 02:15 → 2NENU 06-27 19:46
PROVIDERS: ADMIT Internal Medicine; ATTEND Hospitalist

== ENCOUNTER 2018-04-05 18:17 | Inpatient (IN) ==
[2018-04-05] MEDS ORDERED: 0.9 % Sodium Chloride 1,000 ML IVC ONE (18:28)
--- NOTE | 2018-04-05 18:29 | Emergency Department Note ---
Disposition Clinical Impression: Weakness generalized Disposition: Admitted As Inpatient Condition: Fair General Adult HPI - General Chief complaint: ED Weakness Stated complaint: weakness Time Seen by Provider: 04/05/18 18:21 Source: patient, family Limitations: no limitations - History of Present Illness Pain Scale: 0 - Related Data Home Medications Medication Instructions Recorded Confirmed RX: Albuterol Sulfate [Ventolin 90 mcg IH DAILY 06/23/17 04/05/18 Hfa] RX: Atorvastatin [Lipitor] 20 mg PO HS 06/23/17 04/05/18 RX: Cholecalciferol (Vitamin D3) 2,000 unit PO DAILY 06/23/17 04/05/18 [Vitamin D3] RX: Montelukast [Singulair] 10 mg PO DAILY 06/23/17 04/05/18 RX: Rivaroxaban [Xarelto] 15 mg PO DAILY 06/23/17 04/05/18 Previous Rx's Medication Instructions Recorded RX: Amiodarone [Cordarone] 400 mg PO DAILY 30 Days tablet 06/28/17 RX: Omeprazole [PriLOSEC] 20 mg PO DAILY@0630 #30 capsule.dr 06/28/17 Finasteride [Proscar] 5 mg PO DAILY #30 tablet 04/01/18 Isosorbide MONOnitrate (24 HR) 60 mg PO DAILY #30 tab.er.24h 04/01/18 [Imdur] Tamsulosin [Flomax] 0.4 mg PO DAILY #30 cap.er.24h 04/01/18 Allergies Allergy/AdvReac Type Severity Reaction Status Date / Time No Known Allergies Allergy Verified 08/20/17 12:50 Past Medical History - Past Medical History Medical history: Reports: asthma, atrial fibrillation, cardiomyopathy, CHF, COPD, coronary artery disease, hyperlipidemia, hypertension, myocardial infarction, other Surgical history: Reports: angioplasty/stent, coronary bypass (CABG), LE stent(s), LE vascular intervention, pacemaker/AICD Psychiatric history: Reports: no psych history - Social History Smoking Status: Former smoker Smokeless Tobacco Status: No Alcohol use: Reports: none Drug use: Reports: none Physical Exam - General Limitations: no limitations General appearance: alert, in no apparent distress Course Vital Signs Temperature 97.4 F L 04/05/18 18:20 Pulse Rate 74 04/05/18 18:20 Respiratory Rate 18 04/05/18 18:20 Blood Pressure 101/48 04/05/18 18:20 O2 Sat by Pulse Oximetry 98 04/05/18 18:20 Temperature 98.1 F 04/06/18 02:44 Pulse Rate 63 04/06/18 02:44 Respiratory Rate 15 04/06/18 02:44 Blood Pressure 110/64 04/06/18 02:44 O2 Sat by Pulse Oximetry 96 04/06/18 02:44 Oxygen Delivery Oxygen Delivery Room Air Medical Decision Making - Lab Data Result diagrams: 04/06/18 02:58 04/06/18 02:58 Lab Results 04/05/18 04/05/18 04/05/18 Range/Units 18:52 18:52 19:46 WBC 9.0 (4.3-11.1) K/mcL RBC 4.58 (4.19-5.50) M/mcL Hgb 12.3 L (12.9-16.9) g/dL Hct 38.5 (37.5-50.1) % MCV 84.1 (83.0-100.0) fL MCH 26.9 L (28.0-33.3) pg MCHC 31.9 (31.6-35.5) g/dL RDW 17.4 H (11.5-14.5) % Plt Count 202 (140-400) K/mcL MPV 11.8 (9.4-12.4) fL Immature Gran % 1.0 (0-4) % Seg Neutrophils % 74.8 % Lymphocytes % 12.5 % Monocytes % 9.2 % Eosinophils % 2.1 % Basophils % 0.4 % Neutrophils # 6.7 (1.6-8.9) K/mcL Lymphocytes # 1.1 (0.6-4.6) K/mcL Monocytes # 0.8 (0.0-1.3) K/mcL Eosinophils # 0.2 (0.0-0.6) K/mcL Basophils # 0.0 (0.0-0.2) K/mcL Sodium 137 (136-145) mEq/L Potassium 3.6 (3.5-5.1) mEq/L Chloride 109 H (98-107) mEq/L Carbon Dioxide 21 L (23-29) mEq/L BUN 29 H (8-23) mg/dL Creatinine 1.32 H (0.70-1.30) mg/dL Est GFR ( Amer) > 60 (> 60) Est GFR (Non-Af Amer) 53 L (> 60) BUN/Creatinine Ratio 22 (6-26) Glucose 127 H (70-105) mg/dL Calculated Osmolality 291 (280-300) Calcium 8.9 (8.6-10.3) mg/dL Magnesium 2.3 (1.6-2.6) mg/dL Total Bilirubin 1.0 (0.3-1.0) mg/dL AST 73 H (13-39) Units/L ALT 57 H (7-52) Units/L Alkaline Phosphatase 73 (34-104) Units/L Troponin I < 0.03 (< 0.04) ng/mL Serum Total Protein 6.0 L (6.4-8.9) g/dL Albumin 2.4 L (3.5-5.7) g/dL Globulin 3.6 H (2.4-3.5) g/dL Albumin/Globulin Ratio 0.7 L (1.1-2.2) Urine Color Dark Yellow (Yellow) Urine Clarity Cloudy A (Clear) Urine pH 5.0 (5.0-8.0) pH Units Ur Specific [place] 1.023 (1.010-1.025) Urine Protein Negative (Neg-Trace) mg/dL Urine Glucose (UA) Normal (Normal) mg/dL Urine Ketones Negative (Negative) mg/dL Urine Blood Moderate H (Negative) Urine Nitrite Negative (Negative) Urine Bilirubin Small H (Negative) Urine Urobilinogen Normal (Normal) mg/dL Ur Leukocyte Esterase Negative (Negative) Urine Microscopic RBC 5-15 H (0-3) per hpf Urine Microscopic WBC 0-3 (0-3) per hpf Ur Squamous Epith Cells Few (None-Few) per lpf Urine Bacteria None Seen (None-Few) per hpf Hyaline Casts None Seen (None-Few) per lpf Attestation Statement - Attestation Attestation: I examined this patient and my medical decision-making was reviewed with the Resident Physician. I agree with the documented findings, disposition and treatment plan as described except to the extent set forth below. [id number] time provided Patient arrives in the care of his family requiring 2 person assist to transfer from the wheelchair to the examination bed. Family notes a steadily recent decline in functionality which includes increasing weakness, difficulty ambulating, decreased oral intake and appetite, urinary retention. The patient appears thin and frail on exam
--- NOTE | 2018-04-05 18:40 | Emergency Department Note ---
Disposition Clinical Impression: Weakness generalized Disposition: Admitted As Inpatient Condition: Fair Time of Disposition: 23:40 General Adult HPI - General Chief complaint: ED Weakness Stated complaint: weakness Time Seen by Provider: 04/05/18 18:21 Source: patient, family Mode of arrival: ambulatory Limitations: no limitations Nursing Notes Reviewed: Yes Vital Signs Reviewed: Yes - History of Present Illness HPI Narrative: Patient is a 77-year-old male with a past medical history of CHF presenting to [facility] ED for a 5 week history of gradually progressing deterioration in his overall health. Patient's , daughter, and granddaughter are in room acting as co-historian's. Patient's granddaughter states that over the past 5 weeks the patient has been becoming progressively more weak, and has been having difficulty with ambulation as well as confusion and hallucinations. Patient has also been experiencing difficulty with urinary retention and has recently had drainage of about 2 900 mL of fluid from his bladder. Upon initial examination patient is laying in hospital bed, he is asleep, he is arousable with verbal stimuli but appears confused and is otherwise lethargic. He does not appear to be in acute distress at this time, there are no focal or overt neurological deficits appreciated. The patient currently admits to profou nd generalized weakness, denies headache, chest pain, shortness of breath, denies paresthesias, abdominal pain/nausea. Onset (ago): week(s) Pain Scale: 0 Consistency: Worsening Improves with: nothing Associated symptoms: Reports: confusion, loss of appetite, malaise, nausea/ vomiting, weakness - Related Data Home Medications Medication Instructions Recorded Confirmed RX: Albuterol Sulfate [Ventolin 90 mcg IH DAILY 06/23/17 04/05/18 Hfa] RX: Atorvastatin [Lipitor] 20 mg PO HS 06/23/17 04/05/18 RX: Cholecalciferol (Vitamin D3) 2,000 unit PO DAILY 06/23/17 04/05/18 [Vitamin D3] RX: Montelukast [Singulair] 10 mg PO DAILY 06/23/17 04/05/18 RX: Rivaroxaban [Xarelto] 15 mg PO DAILY 06/23/17 04/05/18 Previous Rx's Medication Instructions Recorded RX: Amiodarone [Cordarone] 400 mg PO DAILY 30 Days tablet 06/28/17 RX: Omeprazole [PriLOSEC] 20 mg PO DAILY@0630 #30 capsule.dr 06/28/17 Finasteride [Proscar] 5 mg PO DAILY #30 tablet 04/01/18 Isosorbide MONOnitrate (24 HR) 60 mg PO DAILY #30 tab.er.24h 04/01/18 [Imdur] Tamsulosin [Flomax] 0.4 mg PO DAILY #30 cap.er.24h 04/01/18 Allergies Allergy/AdvReac Type Severity Reaction Status Date / Time No Known Allergies Allergy Verified 08/20/17 12:50 All systems ED: reviewed and negative except as stated. Review of Systems: As Per HPI Past Medical History - Past Medical History Source: obtained from family Medical history: Reports: asthma, atrial fibrillation, cardiomyopathy, CHF, COPD, coronary artery disease, hyperlipidemia, hypertension, myocardial infarction, other Surgical history: Reports: angioplasty/stent, coronary bypass (CABG), LE stent(s), LE vascular intervention, pacemaker/AICD Psychiatric history: Reports: no psych history - Social History Smoking Status: Former smoker Smokeless Tobacco Status: No Alcohol use: Reports: none Drug use: Reports: none Physical Exam - General Limitations: no limitations General appearance: alert, in no apparent distress - Head Head exam: atraumatic, normocephalic, normal inspection - Eye Eye exam: Present: normal appearance, PERRL, EOMI. Absent: scleral icterus - Neck Neck exam: Present: normal inspection, trachea midline - Chest Chest inspection: Present: normal inspection, symmetric chest wall rise - Respiratory Respiratory exam: Present: normal lung sounds bilaterally, other (Patient is breathing shallow but nonlabored.). Absent: respiratory distress, wheezes, stridor, accessory muscle use, prolonged expiratory phase - Cardiovascular Cardiovascular exam: Present: regular rate, irregular rhythm, normal heart sounds, +S1, +S2. Absent: systolic murmur, diastolic murmur, JVD, +S3, +S4 - Abdominal Exam Abdominal exam: Present: soft, Non-Tender, normal bowel sounds. Absent: distention, guarding, rebound, rigidity - Extremities Exam Extremities exam: Present: pedal edema (Nonpitting edema noted in bilateral lower extremities.) - Skin Skin exam: Present: warm, dry, intact, normal color. Absent: cyanosis, diaphoresis, erythema, pallor, mottled Course - Reevaluation(s) Reevaluation #1: Spoke with hospitalist Dr. Fortune who requested CT scan of the head in order to further assess for potential intracranial pathology prior to hospital admission. We will order the scan while in ED. Time: 20:40 Vital Signs Temperature 97.4 F L 04/05/18 18:20 Pulse Rate 74 04/05/18 18:20 Respiratory Rate 18 04/05/18 18:20 Blood Pressure 101/48 04/05/18 18:20 O2 Sat by Pulse Oximetry 98 04/05/18 18:20 Temperature 97.5 F L 04/05/18 23:13 Pulse Rate 66 04/05/18 23:13 Respiratory Rate 16 04/05/18 23:13 Blood Pressure 101/57 04/05/18 23:13 O2 Sat by Pulse Oximetry 93 04/05/18 23:13 Oxygen Delivery Oxygen Delivery Room Air Procedures - Ultrasound-Other Narrative: Bedside ultrasound performed with images obtained and interpreted by me Bladder appears distended mildly with 500 mL of fluid calculated. We will insert Burton catheter at this time for bladder decompression. Medical Decision Making - MDM Narrative Medical decision making narrative: CT scan of the head negative for acute pathology Patient will be admitted to hospitalist medicine service for further evaluation and management of generalized weakness Patient and family verbalize understanding and agreement with this plan. Patient is hemodynamically stable at time of admission - Lab Data Lab results reviewed: Yes I reviewed the patient's lab results. Result diagrams: 04/05/18 18:52 04/05/18 18:52 Lab Results 04/05/18 04/05/18 04/05/18 Range/Units 18:52 18:52 19:46 WBC 9.0 (4.3-11.1) K/mcL RBC 4.58 (4.19-5.50) M/mcL Hgb 12.3 L (12.9-16.9) g/dL Hct 38.5 (37.5-50.1) % MCV 84.1 (83.0-100.0) fL MCH 26.9 L (28.0-33.3) pg MCHC 31.9 (31.6-35.5) g/dL RDW 17.4 H (11.5-14.5) % Plt Count 202 (140-400) K/mcL MPV 11.8 (9.4-12.4) fL Immature Gran % 1.0 (0-4) % Seg Neutrophils % 74.8 % Lymphocytes % 12.5 % Monocytes % 9.2 % Eosinophils % 2.1 % Basophils % 0.4 % Neutrophils # 6.7 (1.6-8.9) K/mcL Lymphocytes # 1.1 (0.6-4.6) K/mcL Monocytes # 0.8 (0.0-1.3) K/mcL Eosinophils # 0.2 (0.0-0.6) K/mcL Basophils # 0.0 (0.0-0.2) K/mcL Sodium 137 (136-145) mEq/L Potassium 3.6 (3.5-5.1) mEq/L Chloride 109 H (98-107) mEq/L Carbon Dioxide 21 L (23-29) mEq/L BUN 29 H (8-23) mg/dL Creatinine 1.32 H (0.70-1.30) mg/dL Est GFR ( Amer) > 60 (> 60) Est GFR (Non-Af Amer) 53 L (> 60) BUN/Creatinine Ratio 22 (6-26) Glucose 127 H (70-105) mg/dL Calculated Osmolality 291 (280-300) Calcium 8.9 (8.6-10.3) mg/dL Magnesium 2.3 (1.6-2.6) mg/dL Total Bilirubin 1.0 (0.3-1.0) mg/dL AST 73 H (13-39) Units/L ALT 57 H (7-52) Units/L Alkaline Phosphatase 73 (34-104) Units/L Troponin I < 0.03 (< 0.04) ng/mL Serum Total Protein 6.0 L (6.4-8.9) g/dL Albumin 2.4 L (3.5-5.7) g/dL Globulin 3.6 H (2.4-3.5) g/dL Albumin/Globulin Ratio 0.7 L (1.1-2.2) Urine Color Dark Yellow (Yellow) Urine Clarity Cloudy A (Clear) Urine pH 5.0 (5.0-8.0) pH Units Ur Specific [place] 1.023 (1.010-1.025) Urine Protein Negative (Neg-Trace) mg/dL Urine Glucose (UA) Normal (Normal) mg/dL Urine Ketones Negative (Negative) mg/dL Urine Blood Moderate H (Negative) Urine Nitrite Negative (Negative) Urine Bilirubin Small H (Negative) Urine Urobilinogen Normal (Normal) mg/dL Ur Leukocyte Esterase Negative (Negative) Urine Microscopic RBC 5-15 H (0-3) per hpf Urine Microscopic WBC 0-3 (0-3) per hpf Ur Squamous Epith Cells Few (None-Few) per lpf Urine Bacteria None Seen (None-Few) per hpf Hyaline Casts None Seen (None-Few) per lpf - Radiology Data Radiology results reviewed: Yes I reviewed the patient's radiology results. - EKG Data EKG #1 EKG attestation: Yes I reviewed and interpreted this EKG. EKG results narrative: Patient EKG shows atrial-ventricular dual paced rhythm with a heart rate of 63 bpm, TX interval of 161 ms, QRS duration of 134 ms, QT/QTc interval prolonged at 521/534 ms respectively. There are no significant ST segment elevations, or depressions noted, EKG is unremarkable for signs of acute ischemic change at this time. Currently there is no prior EKG available for comparison.
[2018-04-05 19:09] LABS: Basophils % 0.4 %; Eosinophils # 0.2 K/mcL (0.0-0.6); Eosinophils % 2.1 %; Hematocrit 38.5 % (37.5-50.1); Hemoglobin 12.3 g/dL (12.9-16.9); Lymphocytes # 1.1 K/mcL (0.6-4.6); Lymphocytes % 12.5 %; Mean Corpuscular HGB Conc 31.9 g/dL (31.6-35.5); Mean Corpuscular Hemoglobin 26.9 pg (28.0-33.3); Mean Corpuscular Volume 84.1 fL (83.0-100.0); Mean Platelet Volume 11.8 fL (9.4-12.4); Monocytes # 0.8 K/mcL (0.0-1.3); Monocytes % 9.2 %; Neutrophils # 6.7 K/mcL (1.6-8.9); Platelet Count 202 K/mcL (140-400); Red Blood Count 4.58 M/mcL (4.19-5.50); Red Cell Distribution Width 17.4 % (11.5-14.5); Segmented Neutrophils % 74.8 %
[2018-04-05 19:26] LABS: Troponin I < 0.03 ng/mL (< 0.04)
[2018-04-05 19:27] LABS: Alanine Aminotransferase 57 Units/L (7-52); Albumin 2.4 g/dL (3.5-5.7); Albumin/Globulin Ratio 0.7 (1.1-2.2); Alkaline Phosphatase 73 Units/L (34-104); Aspartate Amino Transferase 73 Units/L (13-39); BUN/Creatinine Ratio 22 (6-26); Blood Urea Nitrogen 29 mg/dL (8-23); Calcium 8.9 mg/dL (8.6-10.3); Carbon Dioxide 21 mEq/L (23-29); Chloride 109 mEq/L (98-107); Globulin 3.6 g/dL (2.4-3.5); Glucose 127 mg/dL (70-105); Magnesium 2.3 mg/dL (1.6-2.6); Osmolality,Calculated 291 (280-300); Potassium 3.6 mEq/L (3.5-5.1); Sodium 137 mEq/L (136-145); eGFR For Non-African Americans 53 (> 60)
[2018-04-05 19:57] LABS: Bilirubin,Urine Small (Negative); Blood,Urine Moderate (Negative); Clarity,Urine Cloudy (Clear); Color,Urine Dark Yellow (Yellow); Glucose,Urine (UA) Normal (Normal); Ketones,Urine Negative (Negative); Leukocyte Esterase,Urine Negative (Negative); Nitrite,Urine Negative (Negative); Protein,Urine Negative (Neg-Trace); Specific Gravity,Urine 1.023 (1.010-1.025); Urobilinogen,Urine Normal (Normal)
[2018-04-05 20:01] LABS: Bacteria,Urine None Seen per hpf (None-Few); Hyaline Casts,Urine None Seen per lpf (None-Few); Squamous Epithelial Cell,Urine Few per lpf (None-Few); WBC,Urine 0-3 per hpf (0-3)
[2018-04-06] MEDS ORDERED: Naloxone 0.4 MG/ML INJ IVP PRN (02:10)
--- NOTE | 2018-04-06 02:21 | Internal Med History&Physical ---
Date of Encounter: 04/06/18 Time of Encounter: 01:15 Internal Medicine - H&P: HPI Chief complaint: confusion; weakness Admitted From: Emergency Dept Plans for Post Hospital Care: Home History of present illness: Mr. Turner is a 77 year old male who presents to the ER tonight with complaints of progressive weakness, confusions, hallucinations, and difficulty urinating. Symptoms started about 5 weeks ago and have progressively worsened to the point where family brought him in to ER tonight for workup and care. Labs and imaging done ER were negative. He was subsequently admitted to hospitalist service for further workup and care. Of note, history is exclusively obtained from the ER documentation as patient is confused and disoriented and there are no family members present at this time. Upon my assessment of the patient, he is awake, alert, and oriented to self only. He provides very little history which is unreliable. He does confirm that he has had difficulty urinating but reports no other issues. No further history could be obtained from patient. Past Med Surg Social Fam HX - Past Medical History Source: old records reviewed, other (ER records) Medical history: asthma, atrial fibrillation, cardiomyopathy, CHF, COPD, coronary artery disease, hyperlipidemia, hypertension, myocardial infarction, other Additional medical history: chronic neck and back pain Psychiatric history: no psych history - Past Surgical History Surgical History: angioplasty/stent, coronary bypass (CABG), LE stent(s), LE vascular intervention, pacemaker/AICD Additional surgical history: cardiac 9 stents. AAA repair. valve replacement in heart. bypass surgery to right leg - Social History Smoking Status: Former smoker Smokeless Tobacco Status: No Alcohol use: none Drug use: none Current living situation: Home, With Family - Family History Mother Adopted: No Family Member Ethnicity: Non- Living Status: Hx Family Cardiac Disorders: Yes Hx Family Respiratory Disorders: Yes Hx Family Neurologic Disorders: Yes (dementia) Internal Medicine - H&P: Meds Albuterol Sulfate [Ventolin Hfa] 90 mcg IH DAILY 06/23/17 [History] Atorvastatin [Lipitor] 20 mg PO HS 06/23/17 [History] Cholecalciferol (Vitamin D3) [Vitamin D3] 2,000 unit PO DAILY 06/23/17 [History] Montelukast [Singulair] 10 mg PO DAILY 06/23/17 [History] Rivaroxaban [Xarelto] 15 mg PO DAILY 06/23/17 [History] Amiodarone [Cordarone] 400 mg PO DAILY 30 Days tablet 06/28/17 [Rx] Omeprazole [PriLOSEC] 20 mg PO DAILY@0630 #30 capsule.dr 06/28/17 [Rx] Finasteride [Proscar] 5 mg PO DAILY #30 tablet 04/01/18 [Rx] Isosorbide MONOnitrate (24 HR) [Imdur] 60 mg PO DAILY #30 tab.er.24h 04/01/18 [Rx] Tamsulosin [Flomax] 0.4 mg PO DAILY #30 cap.er.24h 04/01/18 [Rx] Allergy/AdvReac Type Severity Reaction Status Date / Time No Known Allergies Allergy Verified 08/20/17 12:50 ROS unobtainable: due to mental status - Constitutional Vitals: Temp Pulse Resp BP Pulse Ox 97.5 F L 66 16 101/57 93 04/05/18 23:13 04/05/18 23:13 04/05/18 23:13 04/05/18 23:13 04/05/18 23:13 General appearance: Present: cooperative, A&O X 1, pleasant. Absent: answers questions appropriately (confused) Exam: confused and disoriented - Head Head exam: Present: atraumatic, normal inspection - Eye Eye exam: Present: EOMI, PERRL. Absent: scleral icterus Pupils: Present: normal accommodation - ENT ENT exam: Present: mucous membranes dry, normal exam, normal oropharynx - Neck Neck exam general surgery: Present: full ROM, supple. Absent: tenderness, nuchal rigidity, thyromegaly - Respiratory Respiratory exam: Present: CTAB. Absent: chest wall tenderness, rales, respiratory distress, rhonchi, wheezes - Cardiovascular Cardiovascular exam: Present: distant heart sounds, RRR, +S1, +S2. Absent: diastolic murmur, systolic murmur Additional comments: palpable pacemaker - GI/Abdominal GI/Abdominal exam: Present: normal bowel sounds, soft. Absent: hepatomegaly, mass, splenomegaly, tenderness - Extremities Exam Extremities exam: Present: full ROM, warm, radial pulses palpable and symmetrical. Absent: calf tenderness, joint swelling, pedal edema, tenderness - Back Exam Back exam: Absent: CVA tenderness (L), CVA tenderness (R) - Neurological Exam Neurological exam: Present: alert, no focal deficits, strengths equal and symetr throughout. Absent: oriented X3 Additional comments: confused/disoriented - Psychiatric Psychiatric exam: Present: normal mood - Skin Skin exam: Present: dry, intact, warm Internal Med - H&P Results - Labs CBC & Chem 7: 04/05/18 18:52 04/05/18 18:52 Labs: Short CBC 04/05/18 Range/Units 18:52 WBC 9.0 (4.3-11.1) K/mcL Hgb 12.3 L (12.9-16.9) g/dL Hct 38.5 (37.5-50.1) % Plt Count 202 (140-400) K/mcL Neutrophils # 6.7 (1.6-8.9) K/mcL BMP 04/05/18 18:52 Sodium 137 Potassium 3.6 Chloride 109 H Carbon Dioxide 21 L BUN 29 H Creatinine 1.32 H Glucose 127 H Calcium 8.9 Cardiac Enzymes 04/05/18 Range/Units 18:52 Troponin I < 0.03 (< 0.04) ng/mL Liver Function 04/05/18 Range/Units 18:52 Total Bilirubin 1.0 (0.3-1.0) mg/dL AST 73 H (13-39) Units/L ALT 57 H (7-52) Units/L Alkaline Phosphatase 73 (34-104) Units/L Albumin 2.4 L (3.5-5.7) g/dL Urine 04/05/18 Range/Units 19:46 Urine Color Dark Yellow (Yellow) Urine Clarity Cloudy A (Clear) Urine pH 5.0 (5.0-8.0) pH Units Ur Specific [place] 1.023 (1.010-1.025) Urine Protein Negative (Neg-Trace) mg/dL Urine Glucose (UA) Normal (Normal) mg/dL - EKG Data -: EKG Interpreted by Myself - EKG Data Prior EKG available for review: no EKG comments: 04/06/18 02:28 AV paced rhythm - Impressions ITS Impressions Head CT 04/05/18 20:39 IMPRESSION: No acute intracranial abnormality. Diffuse atrophic changes with findings suggesting chronic microvascular ischemia D/ / Seng Knight MD / Seng Knight MD Interpreting Provider: Seng Knight MD - Diagnostic Studies CT scan - head Status: image reviewed by me (negative) - Assessment and plan (1) Encephalopathy acute Current Visit: Yes Status: Acute Assessment and plan: 1. Will minimize medications which may alter BROKER IN CHARGE function. 2. Will order CXR to rule out pneumonia -- I do not appreciate it on exam. 3. Need family presence to verify baseline mental status. 4. May be exacerbated by urinary retention. 5. Consider underlying dementia if work-up negative for acute encephalopathy. (2) Weakness generalized Current Visit: Yes Status: Chronic Assessment and plan: 1. Based upon limited history available to me, this appears chronic over the last 5-6 weeks. 2. Consult PT/OT. 3. Will order TSH. (3) CAD (coronary artery disease) Current Visit: Yes Status: Chronic Assessment and plan: 1. Continue home meds as appropriate. 2. Patient denies chest pain presently. Qualifiers: Coronary Disease-Associated Artery/Lesion type: [place] artery [place] vs. transplanted heart: [place] heart Associated angina: without angina Qualified Code(s): I25.10 - Atherosclerotic heart disease of [place] coronary artery without angina pectoris (4) Paroxysmal atrial fibrillation Current Visit: Yes Status: Chronic Assessment and plan: 1. Continue home meds and Xarelto as appropriate. 2. Monitor on telemetry. 3. Patient has an AV pacer in place. (5) Acute urinary retention Current Visit: Yes Status: Acute Assessment and plan: 1. Burton catheter placed in ER. 2. Monitor I/O closely. 3. Consult urology. 4. Will order renal ultrasound. (6) DVT prophylaxis Current Visit: Yes Status: Acute Assessment and plan: 1. On home Xarelto dosing.
[2018-04-06 03:19] LABS: Basophils % 0.6 %; Eosinophils # 0.2 K/mcL (0.0-0.6); Eosinophils % 2.1 %; Hematocrit 33.1 % (37.5-50.1); Immature Granulocytes % 1.2 % (0-4); Lymphocytes # 0.8 K/mcL (0.6-4.6); Lymphocytes % 11.2 %; Mean Corpuscular HGB Conc 32.3 g/dL (31.6-35.5); Mean Corpuscular Hemoglobin 27.3 pg (28.0-33.3); Mean Corpuscular Volume 84.4 fL (83.0-100.0); Mean Platelet Volume 11.9 fL (9.4-12.4); Monocytes # 0.6 K/mcL (0.0-1.3); Monocytes % 8.4 %; Neutrophils # 5.5 K/mcL (1.6-8.9); Platelet Count 180 K/mcL (140-400); Red Blood Count 3.92 M/mcL (4.19-5.50); Red Cell Distribution Width 17.5 % (11.5-14.5); Segmented Neutrophils % 76.5 %
[2018-04-06 03:22] LABS: Hemoglobin 10.7 g/dL (12.9-16.9)
[2018-04-06 03:36] LABS: Alanine Aminotransferase 47 Units/L (7-52); Albumin 2.1 g/dL (3.5-5.7); Albumin/Globulin Ratio 0.7 (1.1-2.2); Alkaline Phosphatase 58 Units/L (34-104); Aspartate Amino Transferase 59 Units/L (13-39); BUN/Creatinine Ratio 24 (6-26); Bilirubin,Total 1.1 mg/dL (0.3-1.0); Blood Urea Nitrogen 27 mg/dL (8-23); Calcium 8.4 mg/dL (8.6-10.3); Carbon Dioxide 19 mEq/L (23-29); Chloride 112 mEq/L (98-107); Glucose 115 mg/dL (70-105); Magnesium 2.1 mg/dL (1.6-2.6); Osmolality,Calculated 288 (280-300); Potassium 3.6 mEq/L (3.5-5.1); Sodium 136 mEq/L (136-145); Total Protein 5.1 g/dL (6.4-8.9); eGFR For Non-African Americans > 60 (> 60)
--- NOTE | 2018-04-06 10:09 | Urology - Consult Note ---
Date of Encounter: 04/06/18 Time of Encounter: 10:09 - Assessment and Plan (1) Acute urinary retention Current Visit: Yes Status: Acute Assessment and plan: Patient is a poor historian and most of my history has been obtained from notes in [facility]. It appears that he has had recent issues with difficulty urinating requiring a catheter. Bladder scan in the emergency room demonstrated 500 mL prior to catheter placement. He is currently on finasteride and tamsulosin. Incidentally, CT scan in 2018 showed mild BPH. His urinary retention could be multi-factorial and be secondary to outlet obstruction, decreasing mental st atus, debilitation, other medical issues. Ultrasound is pending and I will review the results. I recommend continuing the Burton catheter for now. Patient is experiencing recurrent retention despite double therapy for his BPH. Unsure if he is a candidate for surgery but we may need to consider an outlet obstruction procedures such as greenlight photo vaporization of the prostate as an outpatient. Alternatively could consider chronic indwelling catheter or intermittent catheterization. I am not sure the patient has the capacity to perform intermittent catheterization. At the same time a chronic indwelling catheter will increase risk of infection and complications Urology CN:HPI Consult date: 04/06/18 History of present illness: Patient admitted overnight secure to [facility]. Burton catheter placed in the emergency room which per emergency room physician documentation shows a bladder scan of 500 mL prior to the catheter being placed but I see no documentation regarding how much urine returned when the catheter was placed. It appears he is also had recent issues with retention requiring a recent catheter which was subsequently removed. Patient does not seem to be a reliable historian but denied issues with urination when asked. Incidentally he did have a CT scan in 2018 which showed mild BPH. Past Med Surg Social Fam HX - Past Medical History Medical history: asthma, atrial fibrillation, cardiomyopathy, CHF, COPD, coronary artery disease, hyperlipidemia, hypertension, myocardial infarction, other Additional medical history: chronic neck and back pain Psychiatric history: no psych history - Past Surgical History Surgical History: angioplasty/stent, coronary bypass (CABG), LE stent(s), LE vascular intervention, pacemaker/AICD Additional surgical history: cardiac 9 stents. AAA repair. valve replacement in heart. bypass surgery to right leg - Social History Smoking Status: Former smoker Smokeless Tobacco Status: No Alcohol use: none Drug use: none - Family History Mother Adopted: No Family Member Ethnicity: Non- Living Status: Hx Family Cardiac Disorders: Yes Hx Family Respiratory Disorders: Yes Hx Family Neurologic Disorders: Yes (dementia) Medications and Allergies Albuterol Sulfate [Ventolin Hfa] 90 mcg IH DAILY 06/23/17 [History] Atorvastatin [Lipitor] 20 mg PO HS 06/23/17 [History] Cholecalciferol (Vitamin D3) [Vitamin D3] 2,000 unit PO DAILY 06/23/17 [History] Montelukast [Singulair] 10 mg PO DAILY 06/23/17 [History] Rivaroxaban [Xarelto] 15 mg PO DAILY 06/23/17 [History] Amiodarone [Cordarone] 400 mg PO DAILY 30 Days tablet 06/28/17 [Rx] Omeprazole [PriLOSEC] 20 mg PO DAILY@0630 #30 capsule.dr 06/28/17 [Rx] Finasteride [Proscar] 5 mg PO DAILY #30 tablet 04/01/18 [Rx] Isosorbide MONOnitrate (24 HR) [Imdur] 60 mg PO DAILY #30 tab.er.24h 04/01/18 [Rx] Tamsulosin [Flomax] 0.4 mg PO DAILY #30 cap.er.24h 04/01/18 [Rx] Allergy/AdvReac Type Severity Reaction Status Date / Time No Known Allergies Allergy Verified 08/20/17 12:50 Review of Systems ROS unobtainable: due to mental status Exam Initial Vital Signs Temp Pulse Resp BP Pulse Ox 97.4 F L 74 18 101/48 98 04/05/18 18:20 04/05/18 18:20 04/05/18 18:20 04/05/18 18:20 04/05/18 18:20 - General physical appearance Present: no distress, no pain, chronically ill - Eyes Present: PERRL, conjunctiva is clear - ENT Present: normal nares, decreased hearing - Neck Present: no masses, no lymphadenopathy - Respiratory Present: normal respiratory effort - Cardiovascular Cardiovascular exam IM: RRR - Abdomen Abdomen: Present: soft. Absent: masses, suprapubic tenderness - Genitourinary normal penis with no external lesions - Integumentary Present: no rash, no growths, no abnormal pigmentation - Neurologic Present: normal coordination, confused - Additional Findings Burton catheter with clear urine Urology Results - Labs 04/06/18 02:58 04/06/18 02:58 Abnormal lab results RBC 3.92 M/mcL (4.19-5.50) L 04/06/18 02:58 Hgb 10.7 g/dL (12.9-16.9) L D 04/06/18 02:58 Hct 33.1 % (37.5-50.1) L 04/06/18 02:58 MCH 27.3 pg (28.0-33.3) L 04/06/18 02:58 RDW 17.5 % (11.5-14.5) H 04/06/18 02:58 Chloride 112 mEq/L (98-107) H 04/06/18 02:58 Carbon Dioxide 19 mEq/L (23-29) L 04/06/18 02:58 BUN 27 mg/dL (8-23) H 04/06/18 02:58 Glucose 115 mg/dL (70-105) H 04/06/18 02:58 Calcium 8.4 mg/dL (8.6-10.3) L 04/06/18 02:58 Total Bilirubin 1.1 mg/dL (0.3-1.0) H 04/06/18 02:58 AST 59 Units/L (13-39) H 04/06/18 02:58 Serum Total Protein 5.1 g/dL (6.4-8.9) L 04/06/18 02:58 Albumin 2.1 g/dL (3.5-5.7) L 04/06/18 02:58 Albumin/Globulin Ratio 0.7 (1.1-2.2) L 04/06/18 02:58 Urine Clarity Cloudy (Clear) A 04/05/18 19:46 Urine Blood Moderate (Negative) H 04/05/18 19:46 Urine Bilirubin Small (Negative) H 04/05/18 19:46 Urine Microscopic RBC 5-15 per hpf (0-3) H 04/05/18 19:46 Diabetes panel 04/05/18 04/06/18 Range/Units 18:52 02:58 Sodium 137 136 (136-145) mEq/L Potassium 3.6 3.6 (3.5-5.1) mEq/L Chloride 109 H 112 H (98-107) mEq/L Carbon Dioxide 21 L 19 L (23-29) mEq/L BUN 29 H 27 H (8-23) mg/dL Creatinine 1.32 H 1.11 (0.70-1.30) mg/dL Glucose 127 H 115 H (70-105) mg/dL Calcium 8.9 8.4 L (8.6-10.3) mg/dL AST 73 H 59 H (13-39) Units/L ALT 57 H 47 (7-52) Units/L Alkaline Phosphatase 73 58 (34-104) Units/L Albumin 2.4 L 2.1 L (3.5-5.7) g/dL Thyroid panel 04/06/18 Range/Units 02:58 TSH 0.857 (0.340-5.600) mcIU/mL Calcium panel 04/05/18 04/06/18 Range/Units 18:52 02:58 Calcium 8.9 8.4 L (8.6-10.3) mg/dL Albumin 2.4 L 2.1 L (3.5-5.7) g/dL Pituitary panel 04/05/18 04/06/18 04/06/18 Range/Units 18:52 02:58 02:58 Sodium 137 136 (136-145) mEq/L Potassium 3.6 3.6 (3.5-5.1) mEq/L Chloride 109 H 112 H (98-107) mEq/L Carbon Dioxide 21 L 19 L (23-29) mEq/L BUN 29 H 27 H (8-23) mg/dL Creatinine 1.32 H 1.11 (0.70-1.30) mg/dL Glucose 127 H 115 H (70-105) mg/dL Calcium 8.9 8.4 L (8.6-10.3) mg/dL TSH 0.857 (0.340-5.600) mcIU/mL Adrenal panel 04/05/18 04/06/18 Range/Units 18:52 02:58 Sodium 137 136 (136-145) mEq/L Potassium 3.6 3.6 (3.5-5.1) mEq/L Chloride 109 H 112 H (98-107) mEq/L Carbon Dioxide 21 L 19 L (23-29) mEq/L BUN 29 H 27 H (8-23) mg/dL Creatinine 1.32 H 1.11 (0.70-1.30) mg/dL Glucose 127 H 115 H (70-105) mg/dL Calcium 8.9 8.4 L (8.6-10.3) mg/dL Total Bilirubin 1.0 1.1 H (0.3-1.0) mg/dL AST 73 H 59 H (13-39) Units/L ALT 57 H 47 (7-52) Units/L Alkaline Phosphatase 73 58 (34-104) Units/L Albumin 2.4 L 2.1 L (3.5-5.7) g/dL All other labs normal. Consult Discharge Plan - Plan Referrals: Roberto Rodney, [Primary Care Provider] -
[2018-04-06] MEDS: Acetaminophen 325 MG TABLET PO PRN ×2 (10:14→18:05)
[2018-04-06] MEDS: *HR* Amiodarone 200 MG TABLET PO SCH (10:15)
[2018-04-06] MEDS: Finasteride 5 MG TABLET PO SCH (10:15)
[2018-04-06] MEDS: Cholecalciferol (D-3) 1,000 UNIT TABLET PO SCH (10:16)
[2018-04-06] MEDS: *HR* Rivaroxaban 15 MG TABLET PO SCH (10:16)
[2018-04-06] MEDS ORDERED: Furosemide 20 MG TABLET PO PRN (10:59)
--- NOTE | 2018-04-06 11:27 | Event Note ---
Date of Encounter: 04/06/18 Time of Encounter: 11:24 77-year-old male with past medical history significant for CAD, status post CABG and stent placement, CHF, diabetes, atrial fibrillation, and BPH presented with 5 weeks of progressive dementia, ataxia, weakness, and urinary retention. Patient was found to have urinary retention, a bladder scan at the ED showed 500 mL residual. Urology was consulted, a Burton catheter was placed. On the physical exam, patient is disoriented, has generalized weakness, and ataxia. Neurology was consulted. Chest x-ray also revealed worsening pulmonary edema, patient last echocardiogram was performed on 06/2017 which revealed ejection fraction 20-25%, severe global hypokinesia. However, patient does not take any diuretics at home. He is mildly volume overloaded on physical exam, will start oral Lasix. Continue monitoring labs, pending PT/OT.
--- NOTE | 2018-04-06 12:28 | Neurology - Consult Note ---
Date of Encounter: 04/06/18 Time of Encounter: 12:21 Assessment and Plan (1) Weakness generalized Current Visit: Yes Status: Chronic This case is somewhat difficult as he seems to be experiencing some subacute process. Started with difficulty walking about 5 weeks or so ago. Since that time he was progressed to intermittent confusion and somnolence with failure to thrive. His states that he has a poor appetite. CT scan of the brain reveals significant generalized atrophy with compensatory ventricular dilatation. I do not feel that we are dealing with any type of obstructive hydrocephalus or even NPH. I believe that more than likely dealing with some subacute metabolic infectious, nutritional or inflammatory process. I will check an ammonia level as his LFTs were elevated initially. I will also check lactate, B12 folate and methylmalonic acid levels. It is possible he may have had a subacute stroke as he does have a history of A. fib and has cardiomyopathy with an ejection fraction of 20-25%. There is no evidence of urinary tract infection. There is no evidence of a central nervous system infectious process. There is no nuchal rigidity present. I would like to obtain MRI scan of the lumbar and thoracic spine however he has a pacemaker and we will have to go through protocol to determine whether not he is even a candidate for MRI. And certainly there is an underlying element of dementia. We may even be dealing with a gait apraxia as a cause for his inability to ambulate. I see no evidence of a medication interaction. Might also recommend considering septic workup. We will reevaluate tomorrow. History of Present Illness HPI: The chart was reviewed, the patient was seen and examined. Mr. Turner is a 77 year old male with a history of cardiomyopathy, atrial fibrillation CHF hyperlipidemia hypertension who is seen for neurologic consultation at the request of the hospitalist secondary to progressive weakness, confusion and hallucinations. His is present in the room and informs me that he was at his normal baseline up until about 5 weeks or so ago when he started to develop bilateral lower extremity weakness. She states at that time he had been compla ining of back pain and neck pain. She denied that he had attempt at that time. Apparently he has also had some cognitive decline because he has not driven since 2018 which is when he had a pacemaker implanted. He has been experiencing visual hallucinations as well as auditory hallucinations for about a week. His states that he can move his legs however he has difficulty coordinating them so that he can walk. She is having increased difficulty handling him at home. Apparently he has had an echocardiogram which reveals an ejection fraction of 20-25%. He has also been having difficulty with urinary retention perhaps secondary to prostate issue. CBC is essentially normal, sodium 136, potassium 3.6, chloride elevated at 112, carbon dioxide low at 19. BUN slightly elevated at 27, creatinine is normal. Glucose is elevated at 115. Urinalysis was negative for protein, negative for glucose, did reveal elevated amounts of blood, nitrites and leukocyte esterase were both negative. WBCs were less than 3. No bacteria or casts were seen. I did personally review the CT scan of the brain which did reveal a significant element of cortical atrophy with compensatory ventricular dilatation. This pattern in my opinion however is not consistent with normal pressure hydrocephalus. No evidence of infarct hemorrhagic or neoplastic processes present. Past Med Surg Social Fam HX - Past Medical History Medical history: asthma, atrial fibrillation, cardiomyopathy, CHF, COPD, coronary artery disease, hyperlipidemia, hypertension, myocardial infarction, other Additional medical history: chronic neck and back pain Psychiatric history: no psych history - Past Surgical History Surgical History: angioplasty/stent, coronary bypass (CABG), LE stent(s), LE vascular intervention, pacemaker/AICD Additional surgical history: cardiac 9 stents. AAA repair. valve replacement in heart. bypass surgery to right leg - Social History Smoking Status: Former smoker Smokeless Tobacco Status: No Alcohol use: none Drug use: none - Family History Mother Adopted: No Family Member Ethnicity: Non- Living Status: Hx Family Cardiac Disorders: Yes Hx Family Respiratory Disorders: Yes Hx Family Neurologic Disorders: Yes (dementia) Medications and Allergies Albuterol Sulfate [Ventolin Hfa] 90 mcg IH DAILY 06/23/17 [History] Atorvastatin [Lipitor] 20 mg PO HS 06/23/17 [History] Cholecalciferol (Vitamin D3) [Vitamin D3] 2,000 unit PO DAILY 06/23/17 [History] Montelukast [Singulair] 10 mg PO DAILY 06/23/17 [History] Rivaroxaban [Xarelto] 15 mg PO DAILY 06/23/17 [History] Amiodarone [Cordarone] 400 mg PO DAILY 30 Days tablet 06/28/17 [Rx] Omeprazole [PriLOSEC] 20 mg PO DAILY@0630 #30 capsule. 06/28/17 [Rx] Finasteride [Proscar] 5 mg PO DAILY #30 tablet 04/01/18 [Rx] Isosorbide MONOnitrate (24 HR) [Imdur] 60 mg PO DAILY #30 tab.er.24h 04/01/18 [Rx] Tamsulosin [Flomax] 0.4 mg PO DAILY #30 cap.er.24h 04/01/18 [Rx] Allergy/AdvReac Type Severity Reaction Status Date / Time No Known Allergies Allergy Verified 08/20/17 12:50 All Systems: The remainder of the systems were reviewed and are negative Review of Systems: Balance of the systems review is negative. Physical Examination - Vital Signs Vital Signs: Initial Vital Signs Temp Pulse Resp BP Pulse Ox 97.4 F L 74 18 101/48 98 04/05/18 18:20 04/05/18 18:20 04/05/18 18:20 04/05/18 18:20 04/05/18 18:20 - Exam Exam: General Examination: *CONSTITUTIONAL: Patient appears somewhat exhausted. *EYES: pupils equal, round, reactive to light and accommodation, conjunctiva clear without masses or ulcerations, fundi normal. *CARDIOVASCULAR no peripheral edema, distal temperature normal, dorsalis pedis pulses normal. Refer to vital signs Musculoskeletal: *GAIT AND STATION gait is not assessed. *ASSESSMENT OF MUSCLE STRENGTH IN THE UPPER AND LOWER EXTREMITIES patient has no focal or lateralized deficits on neurologic exam. He is able to raise both arms above his head on command. He is able to move the legs on command. He does have paratonia, consistent with underlying dementia. However I find no evidence of actual leg weakness. *MUSCLE TONE IN THE UPPER AND LOWER EXTREMITIES normal. No abnormal movements, fasciculations or atrophy identified. Paratonia is present. Neurological: *ORIENTATION patient is disoriented he thought he was in [place]. *RECURRENT AND REMOTE MEMORY memory is impaired. *ATTENTION AND CONCENTRATION patient is somnolent however is arousable to voice. He does open his eyes he makes eye contact. He does follow some simple commands. *LANGUAGE FUNCTION there is no agnosia or aphasia. His speech however is somewhat dysarthric at times *FUND OF KNOWLEDGE aware of current events, past history, vocabulary *MENTAL attention span is reduced, he is not able to provide a pertinent history. Bulk of the history is obtained from his . *CN II optic fundi were normal, no papilledema noted. *CN III,IV, PERRLA extraocular eye movements were full, no nystagmus and no ptosis noted. *CN V shows normal sensation and jaw opens symmetrically. *CN VII shows normal facial movement symmetrically, upper and lower b ilaterally. *CN VIII shows no significant hearing loss on examination in the office. *CN IX,,X palate elevated symmetrically and normal gag reflex was noted. *CN XI normal strength in the sternocleidomastoid muscles, symmetrical shoulder shrugging. *CN XII tongue protruded in the midline, with normal strength and movement. *SENSORY EXAMINATION pinprick sensation intact, and light touch(vibration sense). *REFLEXES: deep tendon reflexes were diminished throughout. There is no hyperreflexia or clonus. No long tract signs are present. *CEREBELLAR TESTING normal finger to nose. *PAIN LEVEL Results - Laboratory Findings CBC and BMP: 04/06/18 02:58 04/06/18 02:58 Abnormal lab findings: Abnormal lab results RBC 3.92 M/mcL (4.19-5.50) L 04/06/18 02:58 Hgb 10.7 g/dL (12.9-16.9) L D 04/06/18 02:58 Hct 33.1 % (37.5-50.1) L 04/06/18 02:58 MCH 27.3 pg (28.0-33.3) L 04/06/18 02:58 RDW 17.5 % (11.5-14.5) H 04/06/18 02:58 Chloride 112 mEq/L (98-107) H 04/06/18 02:58 Carbon Dioxide 19 mEq/L (23-29) L 04/06/18 02:58 BUN 27 mg/dL (8-23) H 04/06/18 02:58 Glucose 115 mg/dL (70-105) H 04/06/18 02:58 Calcium 8.4 mg/dL (8.6-10.3) L 04/06/18 02:58 Total Bilirubin 1.1 mg/dL (0.3-1.0) H 04/06/18 02:58 AST 59 Units/L (13-39) H 04/06/18 02:58 Serum Total Protein 5.1 g/dL (6.4-8.9) L 04/06/18 02:58 Albumin 2.1 g/dL (3.5-5.7) L 04/06/18 02:58 Albumin/Globulin Ratio 0.7 (1.1-2.2) L 04/06/18 02:58 Urine Clarity Cloudy (Clear) A 04/05/18 19:46 Urine Blood Moderate (Negative) H 04/05/18 19:46 Urine Bilirubin Small (Negative) H 04/05/18 19:46 Urine Microscopic RBC 5-15 per hpf (0-3) H 04/05/18 19:46 Consult Discharge Plan - Plan Referrals: Roberto Rodney, [Primary Care Provider] -
[2018-04-06] MEDS: Thiamine (B-1) 100 MG in D5% in Water 50 ML IVPB SCH (14:21)
[2018-04-06] MEDS: Azithromycin 500 MG in D5% in Water 250 ML IVPB SCH (15:19)
[2018-04-06] MEDS: Furosemide 20 MG/2 ML VIAL IVP SCH ×2 (15:19→17:25)
[2018-04-06] MEDS: cefTRIAXone 2,000 MG in Water for inj. (sterile) 20 ML 20 ML IVP SCH (18:05)
[2018-04-07] MEDS: cefTRIAXone 2,000 MG in Water for inj. (sterile) 20 ML 20 ML IVP SCH ×2 (05:38→17:37)
[2018-04-07 05:53] LABS: Basophils # 0.1 K/mcL (0.0-0.2); Basophils % 0.6 %; Eosinophils # 0.1 K/mcL (0.0-0.6); Eosinophils % 1.8 %; Hematocrit 36.1 % (37.5-50.1); Hemoglobin 11.7 g/dL (12.9-16.9); Immature Granulocytes % 0.9 % (0-4); Lymphocytes % 12.5 %; Mean Corpuscular HGB Conc 32.4 g/dL (31.6-35.5); Mean Corpuscular Hemoglobin 27.2 pg (28.0-33.3); Mean Platelet Volume 11.8 fL (9.4-12.4); Monocytes # 0.8 K/mcL (0.0-1.3); Monocytes % 10.5 %; Neutrophils # 5.8 K/mcL (1.6-8.9); Platelet Count 184 K/mcL (140-400); Red Cell Distribution Width 17.3 % (11.5-14.5); Segmented Neutrophils % 73.7 %
[2018-04-07 06:30] LABS: Alanine Aminotransferase 51 Units/L (7-52); Alkaline Phosphatase 59 Units/L (34-104); Aspartate Amino Transferase 65 Units/L (13-39); BUN/Creatinine Ratio 25 (6-26); Bilirubin,Total 0.9 mg/dL (0.3-1.0); Blood Urea Nitrogen 26 mg/dL (8-23); Calcium 8.5 mg/dL (8.6-10.3); Carbon Dioxide 23 mEq/L (23-29); Chloride 109 mEq/L (98-107); Glucose 100 mg/dL (70-105); Osmolality,Calculated 289 (280-300); Potassium 3.6 mEq/L (3.5-5.1); Sodium 137 mEq/L (136-145); Total Protein 5.4 g/dL (6.4-8.9); eGFR For Non-African Americans > 60 (> 60)
[2018-04-07 06:43] LABS: Albumin 2.1 g/dL (3.5-5.7); Albumin/Globulin Ratio 0.6 (1.1-2.2); Globulin 3.3 g/dL (2.4-3.5)
[2018-04-07] MEDS: *HR* Rivaroxaban 15 MG TABLET PO SCH (08:09)
[2018-04-07] MEDS: Finasteride 5 MG TABLET PO SCH (08:09)
[2018-04-07] MEDS: Cholecalciferol (D-3) 1,000 UNIT TABLET PO SCH (08:09)
[2018-04-07] MEDS: *HR* Amiodarone 200 MG TABLET PO SCH (08:09)
[2018-04-07] MEDS: Furosemide 20 MG/2 ML VIAL IVP SCH (08:10)
[2018-04-07] MEDS: Thiamine (B-1) 100 MG in D5% in Water 50 ML IVPB SCH (08:10)
--- NOTE | 2018-04-07 08:20 | Neurology Progress Note ---
Date of Encounter: 04/07/18 Time of Encounter: 08:18 Assessment and Plan (1) Weakness generalized Current Visit: Yes Status: Chronic At this point patient still has generalized weakness however his mental status is improved. The right lower extremity seems to be particularly weak. He did receive thiamine yesterday so perhaps some of his confusion and cognitive issues may have been related to nutritional factors. Hopefully we will be able to obtain MRI scans today in lieu of his pacemaker. His metabolic workup thus far has been unrevealing. Lactate and ammonia levels were not elevated. Sedimentation rate however was elevated at 51. Recommend that we maintain thiamine 100 mg daily for now. I will also obtain an EEG. Further recommendations will be made pending the MRI results. We still need to rule out the possibility of acute cerebral infarct versus cervical thoracic or lumbar spinal stenosis. Subjective Interval history: Chart was reviewed, patient was seen and examined. His mental status seems improved today. He was able to have a conversation then provide appropriate responses regarding his medication therapy to the clinical pharmacy manager's. He was able to provide his home telephone number. He knows his 's name. However he does have some difficulty with orientation. He could not tell me the month. However he was able to tell me that today he is on April 10. His processing is improved. He still complains of weakness of both legs however seems to be significantly worse on the right. He is also somewhat tremulous. Objective - Constitutional Vitals: Temp Pulse Resp BP Pulse Ox 97.4 F L 69 16 112/60 95 04/07/18 07:13 04/07/18 07:13 04/07/18 08:06 04/07/18 07:13 04/07/18 08:06 Exam: General Examination: *CONSTITUTIONAL: Patient is more alert today. *EYES: pupils equal, round, reactive to light and accommodation, conjunctiva clear without masses or ulcerations, fundi normal. *CARDIOVASCULAR no peripheral edema, distal temperature normal, dorsalis pedis pulses normal. Refer to vital signs Musculoskeletal: *GAIT AND STATION gait is not assessed. *ASSESSMENT OF MUSCLE STRENGTH IN THE UPPER AND LOWER EXTREMITIES patient has good movement of both upper extremities. He is able to raise the left leg off the bed and touch my hand. He seems to have more weakness of the right lower extremity. He also has intention tremor of both upper extremities with outstretched arms. I do not identify asterixis however. *MUSCLE TONE IN THE UPPER AND LOWER EXTREMITIES normal. No abnormal movements, fasciculations or atrophy identified. Paratonia is present. Neurological: *ORIENTATION patient is disoriented he he cannot tell me the proper month. However he was able to tell me that Linda's day is April 10. *RECURRENT AND REMOTE MEMORY memory is impaired. *ATTENTION AND CONCENTRATION patient is more alert today, he is following specific commands, answers some questions appropriately. He was able to tell me his telephone number and his 's name. He does make eye contact. However he seems to have mild confusion likely patient support representative of an underlying dementia. *LANGUAGE FUNCTION there is no agnosia or aphasia. *FUND OF KNOWLEDGE aware of current events, past history, vocabulary *MENTAL overall improved in comparison to yesterday. *CN II optic fundi were normal, no papilledema noted. *CN III,IV, PERRLA extraocular eye movements were full, no nystagmus and no ptosis noted. *CN V shows normal sensation and jaw opens symmetrically. *CN VII shows normal facial movement symmetrically, upper and lower bilaterally. *CN VIII shows no significant hearing loss on examination in the office. *CN IX,,X palate elevated symmetrically and normal gag reflex was noted. *CN XI normal strength in the sternocleidomastoid muscles, symmetrical shoulder shrugging. *CN XII tongue protruded in the midline, with normal strength and movement. *SENSORY EXAMINATION pinprick sensation intact, and light touch(vibration sense). *REFLEXES: deep tendon reflexes were diminished throughout. There is no hyperreflexia or clonus. No long tract signs are present. *CEREBELLAR TESTING normal finger to nose. *PAIN LEVEL Results - Laboratory Findings CBC and BMP: 04/07/18 05:12 04/07/18 05:12 Abnormal lab findings: Abnormal lab results Hgb 11.7 g/dL (12.9-16.9) L 04/07/18 05:12 Hct 36.1 % (37.5-50.1) L 04/07/18 05:12 MCH 27.2 pg (28.0-33.3) L 04/07/18 05:12 RDW 17.3 % (11.5-14.5) H 04/07/18 05:12 ESR 51 mm/hr (0-10) H 04/06/18 13:11 Chloride 109 mEq/L (98-107) H 04/07/18 05:12 BUN 26 mg/dL (8-23) H 04/07/18 05:12 POC Glucose 118 mg/dL (70-99) H 04/06/18 21:17 Calcium 8.5 mg/dL (8.6-10.3) L 04/07/18 05:12 AST 65 Units/L (13-39) H 04/07/18 05:12 Serum Total Protein 5.4 g/dL (6.4-8.9) L 04/07/18 05:12 Albumin 2.1 g/dL (3.5-5.7) L 04/07/18 05:12 Albumin/Globulin Ratio 0.6 (1.1-2.2) L 04/07/18 05:12 Urine Clarity Cloudy (Clear) A 04/05/18 19:46 Urine Blood Moderate (Negative) H 04/05/18 19:46 Urine Bilirubin Small (Negative) H 04/05/18 19:46 Urine Microscopic RBC 5-15 per hpf (0-3) H 04/05/18 19:46 Consult Discharge Plan - Plan Referrals: Roberto Rodney DO [Primary Care Provider] -
--- NOTE | 2018-04-07 10:47 | Internal Med Progress Note ---
Hospitalist Progress Note - Encounter Date of Encounter: 04/07/18 Time of Encounter: 10:45 - Subjective Interval History: Patient seems more oriented to this morning, he answers most questions correctly. Muscle coordination symptoms also improved. He has no headache, numbness or tingling. He does not in any urinary symptoms. - Exam Vitals: Temp Pulse Resp BP Pulse Ox 97.4 F L 69 16 112/60 95 04/07/18 07:13 04/07/18 07:13 04/07/18 08:06 04/07/18 07:13 04/07/18 08:42 Exam: PHYSICAL EXAMINATION: GENERAL APPEARANCE: The patient is alert, oriented and in no acute distress. HEENT: Head is normocephalic. The sinuses are nontender. Pupils are equal and reactive. The nares are patent. Oropharynx clear without lesions. NECK: Supple without lymphadenopathy. HEART: Regular rate and rhythm. LUNGS: No crackles or wheezes are heard. ABDOMEN: Soft, nontender, nondistended with good bowel sounds heard. Inguinal area is normal. EXTREMITIES: Without cyanosis, clubbing or edema. NEUROLOGICAL: Gross nonfocal. SKIN: Warm and dry without any rash. - Assessment and Plan (1) Encephalopathy acute Current Visit: Yes Status: Chronic Assessment and Plan: Patient family room reported 5 weeks of progressive confusion, ataxia, and a generalized weakness. CT head revealed possible enlarged lateral ventricles. In nina of urinary symptoms with dementia and ataxia, normal pressure hydrocephalus was suspected. Neurology was consulted. Metabolic workup including vitamin B12, TSH, ammonia, lactic acid, which and the vitamin D, were unrevealing. Chest x-ray reviewed, patient does have bilateral pulmonary edema with left- sided infiltrate, IV Lasix at low-dose was started, she will also empirically started on IV antibiotics for possible pneumonia. Patient also received IV thiamine overnight. - Patient mental status seems improved with this morning. - Although the etiology of his neurological symptoms was undetermined at this time, it likely multifactorial including acute urinary retention, possible infection, pulmonary edema, and possible nutrition deficiency including thiamine. NPH was less likely based on clinical presentation, CT imaging, and the neurology opinion. Because of pacemaker, we were unable to obtain MRI imaging. - We will continue current treatment, urology and a neurology following, appreciate their help. - Pending PT/OT. (2) Acute urinary retention Current Visit: Yes Status: Acute Assessment and Plan: 77-year-old male with extensive cardiovascular history including CAD, status post CABG, status post stent, femoropopliteal bypass on the right side, status post ICD/pacemaker, severe systolic CHF, hypertension, ischemic cardiomyopathy, atrial fibrillation, and a newly diagnosed BPH. Patient was recently ho spitalized at [facility] for urinary retention, to medications including Flomax were started today. Patient presented to this hospital ED for confusion, imbalance, generalized weakness on 04/06. Bladder scan revealed 500 mL residual. Burton catheter was placed. Home medication was continued. Serum creatinine improved from 1.4-1.0 Renal ultrasound unremarkable. Urology consult, appreciate help. (3) Weakness generalized Current Visit: Yes Status: Chronic Assessment and Plan: Same as above. (4) CAD (coronary artery disease) Current Visit: No Status: Chronic Assessment and Plan: pt has severe 2 vessel disease, status post CABG and stent placement. he does not have chest pain, troponin was negative. Continue home medication for CAD (5) Paroxysmal atrial fibrillation Current Visit: No Status: Chronic Assessment and Plan: Rate controlled, continue home medication amiodarone and Xarelto. (6) Congestive heart failure Current Visit: No Status: Chronic Assessment and Plan: Repeat echocardiogram showed ejection fraction 40-45%, with global hypokinesia. EF improved in comparison to prior echocardiogram. Chest x-ray upon arrival showed bilateral pulmonary edema, IV Lasix has a low dose was started. Repeat a chest x-ray this morning showed significant improvement of pulmonary edema. Continue IV Lasix. Monitoring BMP. (7) DVT prophylaxis Current Visit: Yes Status: Acute Assessment and Plan: 1. On home Xarelto dosing. - Time Spent with Patient Total time spent is greater than 50% in coordination of care (as documented) at patient's floor/unit and/or counseling patient: Greater than 35 minutes Plan of Care Discussed with: patient Internal Medicine: Result - Labs CBC & Chem 7: 04/07/18 05:12 04/07/18 05:12 Labs: Short CBC 04/07/18 Range/Units 05:12 WBC 7.8 (4.3-11.1) K/mcL Hgb 11.7 L (12.9-16.9) g/dL Hct 36.1 L (37.5-50.1) % Plt Count 184 (140-400) K/mcL Neutrophils # 5.8 (1.6-8.9) K/mcL BMP 04/07/18 05:12 Sodium 137 Potassium 3.6 Chloride 109 H Carbon Dioxide 23 BUN 26 H Creatinine 1.06 Glucose 100 Calcium 8.5 L Liver Function 04/07/18 Range/Units 05:12 Total Bilirubin 0.9 (0.3-1.0) mg/dL AST 65 H (13-39) Units/L ALT 51 (7-52) Units/L Alkaline Phosphatase 59 (34-104) Units/L Albumin 2.1 L (3.5-5.7) g/dL - Impressions Impressions Echocardiogram 04/06/18 10:53 Impressions: LVEF 35-40%. Indeterminate diastolic function. Atypical septal motion consistent with paced rhythm. Normal right ventricular structure and function. Moderately dilated left atrium. Mild aortic regurgitation. Bioprosthetic normal functioning mitral valve without stenosis. MG 5mmHg at 60/min Unable to estimate RVSP due to lack of TR jet. A device lead was visualized in the right atrium and right ventricle. Left Ventricular Wall Motion: Rest Echo Findings The apical inferior, mid inferior, basal inferior, apical anterior, mid anterior, basal anterior, mid inferior septal, basal inferior septal, mid anterior lateral, basal anterior lateral, mid inferior lateral, basal anterior septal and basal inferior lateral cole were hypokinetic. All other wall segments showed normal motion. Findings: Study Quality * Technically adequate exam. ECG Findings * Paced rhythm. Left Ventricle * LVEF 35-40%. * Indeterminate diastolic function. * Moderate segmental left ventricular systolic dysfunction. * Atypical septal motion consistent with paced rhythm. Right Ventricle * Normal right ventricular structure and function. Left Atrium * Moderately dilated left atrium. Right Atrium * Normal right atrial size. Interatrial Septum * No evidence of PFO by color Doppler. Aortic Valve * No aortic stenosis. * Aortic valve not well visualized. * Mild aortic regurgitation. Mitral Valve * Bioprosthetic normal functioning mitral valve without stenosis. MG 5mmHg at 60/min Tricuspid Valve * Tricuspid valve not well visualized. * Trace tricuspid regurgitation. * Unable to estimate RVSP due to lack of TR jet. * No tricuspid stenosis. Pulmonic Valve * Pulmonic valve is not well visualized. Aorta * Normally sized aortic root. Pericardium * The pericardium appears normal. IVC * The IVC is borderline dilated. Device lead * A device lead was visualized in the right atrium and right ventricle. Chest X-Ray 04/07/18 08:20 IMPRESSION: Improving left lower lobe airspace disease versus effusion. Residual retrocardiac opacification. Follow-up to resolution. Left lower lobe and right lower lobe nodules, measuring 1.0 and 0.[address] scan can be performed to evaluate. D/ / Osmin Li MD / Osmin Li MD Interpreting Provider: Osmin Li MD Liver Ultrasound 04/07/18 09:00 IMPRESSION: 1. Unremarkable ultrasound of the liver. 2. Uncomplicated cholelithiasis. 3. Small right pleural effusion. D/ / Riky Lowery MD / Riky Lowery MD Interpreting Provider: Riky Lowery MD Retroperitoneum Ultrasound 04/07/18 09:30 IMPRESSION: Unremarkable ultrasound of the kidneys and urinary bladder. Small bilateral pleural effusions. D/ / 04/07/2018 10:40:20 Zeke Johnson MD / ed Interpreting Provider: Zeke Johnson MD Consult Discharge Plan - Plan Referrals: Roberto Rodney, DO [Primary Care Provider] - (4) CAD (coronary artery disease) Qualifiers: Coronary Disease-Associated Artery/Lesion type: [place] artery [place] vs. transplanted heart: [place] heart Associated angina: without angina Qualified Code(s): I25.10 - Atherosclerotic heart disease of [place] coronary artery without angina pectoris (6) Congestive heart failure Qualifiers: Heart failure type: combined systolic and diastolic Heart failure chronicity: chronic Qualified Code(s): I50.42 - Chronic combined systolic (congestive) and diastolic (congestive) heart failure
[2018-04-07] MEDS: Acetaminophen 325 MG TABLET PO PRN (11:42)
[2018-04-07] MEDS: Azithromycin 500 MG in D5% in Water 250 ML IVPB SCH (13:44)
[2018-04-07] MEDS ORDERED: Sennosides 8.6 MG TABLET PO PRN (14:19)
--- NOTE | 2018-04-07 14:19 | EEG/EMG/Oth Biometrics Report ---
EEG Procedure Report Date of procedure: 04/07/18 EEG Procedure: Routine EEG Procedure Note: This is a report of a 21 channel bipolar and referential montage EEG. A posterior dominant rhythm consisted of mixed moderate to low voltage theta and delta frequency ranging from 3-5 Hz. This rhythm does not attenuate with eye opening. Hyperventilation is not performed in recording. There is no sleep architecture identified during the study. Photostimulation is performed and does not produce a driving response. The EKG rhythm strip reveals a wide QRS complex at 66 bpm. Impressions: This EEG recording is abnormal and is reflective of a mild to moderate generalized encephalopathy. There is no evidence of epileptiform activity identified during the study. Etiologies to explain this interpretation might include toxic, metabolic, postictal, or degenerative. Please correlate clinically.
[2018-04-07] MEDS: Mirtazapine 15 MG TABLET PO SCH (20:20)
[2018-04-08] MEDS: cefTRIAXone 2,000 MG in Water for inj. (sterile) 20 ML 20 ML IVP SCH ×2 (06:03→16:46)
[2018-04-08 06:56] LABS: Hematocrit 35.7 % (37.5-50.1); Hemoglobin 11.6 g/dL (12.9-16.9); Mean Corpuscular HGB Conc 32.5 g/dL (31.6-35.5); Mean Corpuscular Hemoglobin 27.3 pg (28.0-33.3); Mean Platelet Volume 12.8 fL (9.4-12.4); Platelet Count 162 K/mcL (140-400); Red Blood Count 4.25 M/mcL (4.19-5.50); Red Cell Distribution Width 17.5 % (11.5-14.5)
[2018-04-08 07:16] LABS: BUN/Creatinine Ratio 26 (6-26); Blood Urea Nitrogen 26 mg/dL (8-23); Calcium 8.7 mg/dL (8.6-10.3); Carbon Dioxide 21 mEq/L (23-29); Chloride 108 mEq/L (98-107); Glucose 94 mg/dL (70-105); Osmolality,Calculated 287 (280-300); Potassium 4.1 mEq/L (3.5-5.1); Sodium 136 mEq/L (136-145); eGFR For Non-African Americans > 60 (> 60)
[2018-04-08] MEDS: *HR* Amiodarone 200 MG TABLET PO SCH (08:22)
[2018-04-08] MEDS: Cholecalciferol (D-3) 1,000 UNIT TABLET PO SCH (08:22)
[2018-04-08] MEDS: *HR* Rivaroxaban 15 MG TABLET PO SCH (08:23)
[2018-04-08] MEDS: Finasteride 5 MG TABLET PO SCH (08:23)
[2018-04-08] MEDS: Thiamine (B-1) 100 MG in D5% in Water 50 ML IVPB SCH (08:23)
--- NOTE | 2018-04-08 08:38 | Urology Progress Note ---
<Fabiola Burch N - Last Filed: 04/08/18 08:35> Date of Encounter: 04/08/18 Time of Encounter: 08:25 - Assessment and Plan (1) Acute urinary retention Current Visit: Yes Status: Acute Assessment and plan: Patient is a 77-year-old male who presents with a history of acute urinary retention. Vital signs are stable and afebrile. I advised patient not to pull on Burton, as it may have to be repositioned if it becomes displaced. Reviewed retroperitoneal ultrasound that is reassuring. Patient may follow-up as an o utpatient to discuss options for outlet obstruction with surgical intervention versus long-term catheterization. Progress Note Subjective: no new complaints Narrative: Patient seen and examined sitting upright in bed in no apparent distress. Patient was pulling on catheter tubing on examination. Burton catheter is indwelling and draining clear urine into bedside bag. Objective Initial Vital Signs Temp Pulse Resp BP Pulse Ox 97.4 F L 74 18 101/48 98 04/05/18 18:20 04/05/18 18:20 04/05/18 18:20 04/05/18 18:20 04/05/18 18:20 - General physical appearance Present: well developed, no distress, no pain - Respiratory Present: normal expansion, normal respiratory effort - Abdomen Present: soft, non tender - Genitourinary Urine Appearance: Present: Clear - Integumentary Present: no rash, no abnormal pigmentation - Musculoskeletal Present: normal posture - Psychiatric Present: oriented to time, oriented to person, oriented to place, speech is normal - Labs 04/08/18 05:43 04/08/18 05:43 Diabetes panel 04/08/18 Range/Units 05:43 Sodium 136 (136-145) mEq/L Potassium 4.1 (3.5-5.1) mEq/L Chloride 108 H (98-107) mEq/L Carbon Dioxide 21 L (23-29) mEq/L BUN 26 H (8-23) mg/dL Creatinine 0.99 (0.70-1.30) mg/dL Glucose 94 (70-105) mg/dL Calcium 8.7 (8.6-10.3) mg/dL Calcium panel 04/06/18 04/08/18 Range/Units 08:57 05:43 Calcium 8.7 (8.6-10.3) mg/dL 25-OH Vitamin D Total 49 (30-80) ng/mL Pituitary panel 04/08/18 Range/Units 05:43 Sodium 136 (136-145) mEq/L Potassium 4.1 (3.5-5.1) mEq/L Chloride 108 H (98-107) mEq/L Carbon Dioxide 21 L (23-29) mEq/L BUN 26 H (8-23) mg/dL Creatinine 0.99 (0.70-1.30) mg/dL Glucose 94 (70-105) mg/dL Calcium 8.7 (8.6-10.3) mg/dL Adrenal panel 04/08/18 Range/Units 05:43 Sodium 136 (136-145) mEq/L Potassium 4.1 (3.5-5.1) mEq/L Chloride 108 H (98-107) mEq/L Carbon Dioxide 21 L (23-29) mEq/L BUN 26 H (8-23) mg/dL Creatinine 0.99 (0.70-1.30) mg/dL Glucose 94 (70-105) mg/dL Calcium 8.7 (8.6-10.3) mg/dL Consult Discharge Plan - Plan Referrals: Roberto Rodney, DO [Primary Care Provider] - <Sanjiv Monzon - Last Filed: 04/08/18 12:10> Date of Encounter: 04/08/18 - Assessment and Plan (1) Acute urinary retention Current Visit: Yes Status: Acute Assessment and plan: pt seen an conjunction with PA. pt needs to keep indwelling cath bc of recent issues with retention. His mental status may be an issue with the cath and willl need to monitor. Objective Initial Vital Signs Temp Pulse Resp BP Pulse Ox 97.4 F L 74 18 101/48 98 04/05/18 18:20 04/05/18 18:20 04/05/18 18:20 04/05/18 18:20 04/05/18 18:20 - Labs 04/08/18 05:43 04/08/18 05:43 Diabetes panel 04/08/18 Range/Units 05:43 Sodium 136 (136-145) mEq/L Potassium 4.1 (3.5-5.1) mEq/L Chloride 108 H (98-107) mEq/L Carbon Dioxide 21 L (23-29) mEq/L BUN 26 H (8-23) mg/dL Creatinine 0.99 (0.70-1.30) mg/dL Glucose 94 (70-105) mg/dL Calcium 8.7 (8.6-10.3) mg/dL Calcium panel 04/08/18 Range/Units 05:43 Calcium 8.7 (8.6-10.3) mg/dL Pituitary panel 04/08/18 Range/Units 05:43 Sodium 136 (136-145) mEq/L Potassium 4.1 (3.5-5.1) mEq/L Chloride 108 H (98-107) mEq/L Carbon Dioxide 21 L (23-29) mEq/L BUN 26 H (8-23) mg/dL Creatinine 0.99 (0.70-1.30) mg/dL Glucose 94 (70-105) mg/dL Calcium 8.7 (8.6-10.3) mg/dL Adrenal panel 04/08/18 Range/Units 05:43 Sodium 136 (136-145) mEq/L Potassium 4.1 (3.5-5.1) mEq/L Chloride 108 H (98-107) mEq/L Carbon Dioxide 21 L (23-29) mEq/L BUN 26 H (8-23) mg/dL Creatinine 0.99 (0.70-1.30) mg/dL Glucose 94 (70-105) mg/dL Calcium 8.7 (8.6-10.3) mg/dL
--- NOTE | 2018-04-08 09:18 | Neurology Progress Note ---
Date of Encounter: 04/08/18 Time of Encounter: 09:16 Assessment and Plan (1) Weakness generalized Current Visit: Yes Status: Chronic The question is whether not he is back to his normal baseline. I believe he likely has some element of dementia. I believe that the acute UTI more than likely is altered in the acute confusion. If the lower extremity weakness is chronic and there is not likely much more than that would need to be done. However if the weakness is acute that I would like to at least get MRIs of the cervical thoracic and lumbar spine to rule out a compressive lesion. Otherwise he will more than likely need long-term care at an extended care facility Subjective Interval history: The chart was reviewed, the patient was seen and examined. He continues to have waxing and waning levels of confusion. Today he could not tell me which hospital he was then. He does however note that the month is March but he thought the year was 2014. He has some motor impersistence with command foll owing. Some command he follows appropriately others not. His metabolic workup however was fairly unremarkable. Lactate ammonia levels were negative. I find no evidence of acute cerebral infarct. Today he denies any complaints of back pain. History somewhat scant and there are no family members present to clarify these matters. Lower extremity weakness was also part of his presenting complai nt however I am not certain whether this problem is acute or chronic. Unfortunately he is not a candidate for MRI as his pacemaker is not compatible. Objective - Constitutional Vitals: Temp Pulse Resp BP Pulse Ox 97.0 F L 68 16 117/69 91 04/08/18 07:32 04/08/18 07:32 04/08/18 07:42 04/08/18 07:32 04/08/18 07:42 Exam: General Examination: *CONSTITUTIONAL: Patient is more alert today. *EYES: pupils equal, round, reactive to light and accommodation, conjunctiva clear without masses or ulcerations, fundi normal. *CARDIOVASCULAR no peripheral edema, distal temperature normal, dorsalis pedis pulses normal. Refer to vital signs Musculoskeletal: *GAIT AND STATION gait is not assessed. *ASSESSMENT OF MUSCLE STRENGTH IN THE UPPER AND LOWER EXTREMITIES patient has good movement of both upper extremities. He is able to raise the left leg off the bed and touch my hand. He seems to have more weakness of the right lower extremity. He also has intention tremor of both upper extremities with outstretched arms. I do not identify asterixis however. *MUSCLE TONE IN THE UPPER AND LOWER EXTREMITIES normal. No abnormal move ments, fasciculations or atrophy identified. Paratonia is present. Neurological: *ORIENTATION patient is disoriented he does know the month is March, however thought the year was 2013 he cannot tell me his current location.. However he was able to tell me that Linda's day is April 10. *RECURRENT AND REMOTE MEMORY memory is impaired. *ATTENTION AND CONCENTRATION patient's mental status is improved from that upon admission. He does make eye contact. However he seems to have mild confusion likely hr representative of an underlying dementia. He does have motor impersistence with command following. *LANGUAGE FUNCTION there is no agnosia or aphasia. *FUND OF KNOWLEDGE aware of current events, past history, vocabulary *MENTAL overall improved in comparison to yesterday. *CN II optic fundi were normal, no papilledema noted. *CN III,IV, PERRLA extraocular eye movements were full, no nystagmus and no ptosis noted. *CN V shows normal sensation and jaw opens symmetrically. *CN VII shows normal facial movement symmetrically, upper and lower bilaterally. *CN VIII shows no significant hearing loss on examination in the office. *CN IX,,X palate elevated symmetrically and normal gag reflex was noted. *CN XI normal strength in the sternocleidomastoid muscles, symmetrical shoulder shrugging. *CN XII tongue protruded in the midline, with normal strength and movement. *SENSORY EXAMINATION pinprick sensation intact, and light touch(vibration sense). *REFLEXES: deep tendon reflexes were diminished throughout. There is no hyperreflexia or clonus. *CEREBELLAR TESTING normal finger to nose. *PAIN LEVEL 0 Results - Laboratory Findings CBC and BMP: 04/08/18 05:43 04/08/18 05:43 Abnormal lab findings: Abnormal lab results Hgb 11.6 g/dL (12.9-16.9) L 04/08/18 05:43 Hct 35.7 % (37.5-50.1) L 04/08/18 05:43 MCH 27.3 pg (28.0-33.3) L 04/08/18 05:43 RDW 17.5 % (11.5-14.5) H 04/08/18 05:43 MPV 12.8 fL (9.4-12.4) H 04/08/18 05:43 ESR 51 mm/hr (0-10) H 04/06/18 13:11 Chloride 108 mEq/L (98-107) H 04/08/18 05:43 Carbon Dioxide 21 mEq/L (23-29) L 04/08/18 05:43 BUN 26 mg/dL (8-23) H 04/08/18 05:43 AST 65 Units/L (13-39) H 04/07/18 05:12 Serum Total Protein 5.4 g/dL (6.4-8.9) L 04/07/18 05:12 Albumin 2.1 g/dL (3.5-5.7) L 04/07/18 05:12 Albumin/Globulin Ratio 0.6 (1.1-2.2) L 04/07/18 05:12 Urine Clarity Cloudy (Clear) A 04/05/18 19:46 Urine Blood Moderate (Negative) H 04/05/18 19:46 Urine Bilirubin Small (Negative) H 04/05/18 19:46 Urine Microscopic RBC 5-15 per hpf (0-3) H 04/05/18 19:46 Consult Discharge Plan - Plan Referrals: Roberto Rodney DO [Primary Care Provider] -
[2018-04-08] MEDS: Acetaminophen 325 MG TABLET PO PRN (10:37)
--- NOTE | 2018-04-08 15:23 | Internal Med Progress Note ---
Hospitalist Progress Note - Encounter Date of Encounter: 04/08/18 Time of Encounter: 15:21 - Subjective Interval History: Pt sleeping while I was rounding. Per family, Pt was out of bed sitting in chair about 15 mins yesterday. He is still confused most of time. His left arm seems swelling per family. - Exam Vitals: Temp Pulse Resp BP Pulse Ox 97.6 F 63 17 100/50 92 04/08/18 11:24 04/08/18 11:24 04/08/18 11:24 04/08/18 11:24 04/08/18 11:24 Exam: PHYSICAL EXAMINATION: GENERAL APPEARANCE: The patient is confused and in no acute distress. HEENT: Head is normocephalic. The sinuses are nontender. Pupils are equal and reactive. The nares are patent. Oropharynx clear without lesions. NECK: Supple without lymphadenopathy. HEART: Regular rate and rhythm. LUNGS: No crackles or wheezes are heard. ABDOMEN: Soft, nontender, nondistended with good bowel sounds heard. Inguinal area is normal. EXTREMITIES: Without cyanosis, clubbing or edema. NEUROLOGICAL: Gross nonfocal. SKIN: Warm and dry without any rash. - Assessment and Plan (1) Encephalopathy acute Current Visit: Yes Status: Chronic Assessment and Plan: 04/07 Patient family room reported 5 weeks of progressive confusion, ataxia, and a generalized weakness. CT head revealed possible enlarged lateral ventricles. In nina of urinary symptoms with dementia and ataxia, normal pressure hydrocephalus was suspected. Neurology was consulted. Metabolic workup including vitamin B12, TSH, ammonia, lactic acid, which and the vitamin D, were unrevealing. Chest x-ray reviewed, patient does have bilateral pulmonary edema with left- sided infiltrate, IV Lasix at low-dose was started, she will also empirically started on IV antibiotics for possible pneumonia. Patient also received IV thiamine overnight. - Patient mental status seems improved this morning. - Although the etiology of his neurological symptoms was undetermined at this time, it likely multifactorial including acute urinary retention, possible infection, pulmonary edema, and possible nutrition deficiency including thiamine. NPH was less likely based on clinical presentation, CT imaging, and the neurology opinion. Because of pacemaker, we were unable to obtain MRI imaging. - We will continue current treatment, urology and neurology following, appreciate their help. - Pending PT/OT. 04/08 Pt mental status remains confused and he is still weak. Urology recommended to remove Burton. will dc Burton. EEG abnormal but no epileptic waveform, Neuro thinks pt mental status was likely caused by urinary retention on top of baseline dementia. MRI brain was unable to obtain due to pacer/AICD, although NPH was not highly possible, we do not have much to do to rule it out or confirm, I will empirically start Diamox and watch pt response, if no response for 2 months, there it can be dc'ed. PT/OT recommended SNF, Plan to DC to [facility] swing bed on . (2) Acute urinary retention Current Visit: Yes Status: Acute Assessment and Plan: 04/07 77-year-old male with extensive cardiovascular history including CAD, status post CABG, status post stent, femoropopliteal bypass on the right side, status post ICD/pacemaker, severe systolic CHF, hypertension, ischemic cardiomyopathy, atrial fibrillation, and a newly diagnosed BPH. Patient was recently hospitalized at [facility] for urinary retention, to medications including Flomax were started today. Patient presented to this hospital ED for confusion, imbalance, generalized weakness on 04/06. Bladder scan revealed 500 mL residual. Burton catheter was placed. Home medication was continued. Serum creatinine improved from 1.4-1.0 Renal ultrasound unremarkable. Urology consult, appreciate help. 04/08 Will remove Burton per urology recs. (3) Weakness generalized Current Visit: Yes Status: Chronic Assessment and Plan: Same as above. (4) CAD (coronary artery disease) Current Visit: No Status: Chronic Assessment and Plan: pt has severe 2 vessel disease, status post CABG and stent placement. he does not have chest pain, troponin was negative. Continue home medication for CAD (5) Paroxysmal atrial fibrillation Current Visit: No Status: Chronic Assessment and Plan: Rate controlled, continue home medication amiodarone and Xarelto. (6) Congestive heart failure Current Visit: No Status: Chronic Assessment and Plan: Repeat echocardiogram showed ejection fraction 40-45%, with global hypokinesia. EF improved in comparison to prior echocardiogram. Chest x-ray upon arrival showed bilateral pulmonary edema, IV Lasix has a low dose was started. Repeat a chest x-ray this morning showed significant improvement of pulmonary edema. Lasix dc'ed due to poor oral intake. Encourage oral. (7) DVT prophylaxis Current Visit: Yes Status: Acute Assessment and Plan: 1. On home Xarelto dosing. - Time Spent with Patient Total time spent is greater than 50% in coordination of care (as documented) at patient's floor/unit and/or counseling patient: Greater than 35 minutes Plan of Care Discussed with: patient Internal Medicine: Result - Labs CBC & Chem 7: 04/08/18 05:43 04/08/18 05:43 Labs: Short CBC 04/08/18 Range/Units 05:43 WBC 7.9 (4.3-11.1) K/mcL Hgb 11.6 L (12.9-16.9) g/dL Hct 35.7 L (37.5-50.1) % Plt Count 162 (140-400) K/mcL BMP 04/08/18 05:43 Sodium 136 Potassium 4.1 Chloride 108 H Carbon Dioxide 21 L BUN 26 H Creatinine 0.99 Glucose 94 Calcium 8.7 Consult Discharge Plan - Plan Referrals: Roberto Rodney, [Primary Care Provider] - _ (4) CAD (coronary artery disease) Qualifiers: Coronary Disease-Associated Artery/Lesion type: [place] artery [place] vs. transplanted heart: [place] heart Associated angina: without angina Qualified Code(s): I25.10 - Atherosclerotic heart disease of [place] coronary artery wit hout angina pectoris (6) Congestive heart failure Qualifiers: Heart failure type: combined systolic and diastolic Heart failure chronicity: chronic Qualified Code(s): I50.42 - Chronic combined systolic (congestive) and diastolic (congestive) heart failure
[2018-04-08] MEDS: Azithromycin 500 MG in D5% in Water 250 ML IVPB SCH (16:46)
--- NOTE | 2018-04-08 20:15 | Electrocardiograph Report ---
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
[2018-04-08] MEDS: acetaZOLAMIDE 250 MG TABLET PO SCH (20:37)
[2018-04-08] MEDS: Mirtazapine 15 MG TABLET PO SCH (20:38)
[2018-04-09 04:31] LABS: Basophils # 0.1 K/mcL (0.0-0.2); Basophils % 0.6 %; Eosinophils # 0.2 K/mcL (0.0-0.6); Eosinophils % 2.7 %; Hematocrit 34.3 % (37.5-50.1); Hemoglobin 11.2 g/dL (12.9-16.9); Immature Granulocytes % 0.8 % (0-4); Lymphocytes # 0.9 K/mcL (0.6-4.6); Lymphocytes % 11.6 %; Mean Corpuscular HGB Conc 32.7 g/dL (31.6-35.5); Mean Corpuscular Hemoglobin 27.3 pg (28.0-33.3); Mean Corpuscular Volume 83.5 fL (83.0-100.0); Mean Platelet Volume 12.5 fL (9.4-12.4); Monocytes # 0.7 K/mcL (0.0-1.3); Monocytes % 9.2 %; Neutrophils # 5.8 K/mcL (1.6-8.9); Platelet Count 150 K/mcL (140-400); Red Blood Count 4.11 M/mcL (4.19-5.50); Red Cell Distribution Width 17.3 % (11.5-14.5); Segmented Neutrophils % 75.1 %
[2018-04-09 04:50] LABS: BUN/Creatinine Ratio 35 (6-26); Blood Urea Nitrogen 28 mg/dL (8-23); Calcium 8.4 mg/dL (8.6-10.3); Carbon Dioxide 21 mEq/L (23-29); Chloride 109 mEq/L (98-107); Glucose 105 mg/dL (70-105); Osmolality,Calculated 290 (280-300); Potassium 3.8 mEq/L (3.5-5.1); Sodium 137 mEq/L (136-145); eGFR For Non-African Americans > 60 (> 60)
[2018-04-09] MEDS: cefTRIAXone 2,000 MG in Water for inj. (sterile) 20 ML 20 ML IVP SCH (05:38)
--- NOTE | 2018-04-09 08:53 | Neurology Progress Note ---
Date of Encounter: 04/09/18 Time of Encounter: 08:46 Assessment and Plan (1) Weakness generalized Current Visit: Yes Status: Chronic Ultimately I believe that we are not dealing with a primary neurologic etiology to explain the weakness. I believe that he may be developing gait apraxia due to the dementia, some of his mental status changes may be due to medical issues such as infection, perhaps some sundowning effect. Some of the weakness may be due to deconditioning. However from not able to identify specific neurologic etiology to explain his weakness other than the above. Recommend extended-care facility with a focus on conditioning and strengthening. Otherwise I will reevaluate him at your request. Subjective Interval history: The chart was reviewed, the patient was seen and examined. Patient is laying in bed watching television. He remains intermittently confused. He had to some questions appropriately and others not so. Follow some commands appropriately and others not. I believe his mental status changes that multifactorial mainly metabolic and perhaps infectious but however not primarily neurologic other than baseline dementia. He is able to move both legs on command. He denies any back pain now. CT scans of the cervical and lumbar spine did not reveal evidence of spinal stenosis. Objective - Constitutional Vitals: Temp Pulse Resp BP Pulse Ox 97.5 F L 66 16 97/54 94 04/09/18 06:54 04/09/18 06:54 04/09/18 06:54 04/09/18 06:54 04/09/18 06:54 General Examination: *CONSTITUTIONAL: Patient is in no acute distress. *EYES: pupils equal, round, reactive to light and accommodation, conjunctiva clear without masses or ulcerations, fundi normal. *CARDIOVASCULAR no peripheral edema, distal temperature normal, dorsalis pedis pulses normal. Refer to vital signs Musculoskeletal: *GAIT AND STATION gait is not assessed. *ASSESSMENT OF MUSCLE STRENGTH IN THE UPPER AND LOWER EXTREMITIES patient has good movement of both upper extremities. He is able to raise the left leg off the bed and touch my hand. Today he raises the right leg equally as well. He also has intention tremor of both upper extremities with outstretched arms. I do not identify asterixis however. *MUSCLE TONE IN THE UPPER AND LOWER EXTREMITIES normal. No abnormal movements, fasciculations or atrophy identified. Paratonia is present. Neurological: *ORIENTATION patient is disoriented he does know the month is March, but remains disoriented otherwise. Sometimes speaks with loose association. *RECURRENT AND REMOTE MEMORY memory is impaired. *ATTENTION AND CONCENTRATION patient's mental status is improved from that upon admission. He does make eye contact. 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 He does have motor impersistence with command following. *LANGUAGE FUNCTION there is no agnosia or aphasia. *FUND OF KNOWLEDGE aware of current events, past history, vocabulary *MENTAL overall improved in comparison to yesterday. *CN II optic fundi were normal, no papilledema noted. *CN III,IV, PERRLA extraocular eye movements were full, no nystagmus and no ptosis noted. *CN V shows normal sensation and jaw opens symmetrically. *CN VII shows normal facial movement symmetrically, upper and lower bilaterally. *CN VIII shows no significant hearing loss on examination in the office. *CN IX,,X palate elevated symmetrically and normal gag reflex was noted. *CN XI normal strength in the sternocleidomastoid muscles, symmetrical shoulder shrugging. *CN XII tongue protruded in the midline, with normal strength and movement. *SENSORY EXAMINATION pinprick sensation intact, and light touch(vibration sense). *REFLEXES: deep tendon reflexes were diminished throughout. There is no hyperreflexia or clonus. *CEREBELLAR TESTING normal finger to nose. *PAIN LEVEL 0 Results - Laboratory Findings CBC and BMP: 04/09/18 03:30 04/09/18 03:30 Abnormal lab findings: Abnormal lab results RBC 4.11 M/mcL (4.19-5.50) L 04/09/18 03:30 Hgb 11.2 g/dL (12.9-16.9) L 04/09/18 03:30 Hct 34.3 % (37.5-50.1) L 04/09/18 03:30 MCH 27.3 pg (28.0-33.3) L 04/09/18 03:30 RDW 17.3 % (11.5-14.5) H 04/09/18 03:30 MPV 12.5 fL (9.4-12.4) H 04/09/18 03:30 ESR 51 mm/hr (0-10) H 04/06/18 13:11 Chloride 109 mEq/L (98-107) H 04/09/18 03:30 Carbon Dioxide 21 mEq/L (23-29) L 04/09/18 03:30 BUN 28 mg/dL (8-23) H 04/09/18 03:30 BUN/Creatinine Ratio 35 (6-26) H 04/09/18 03:30 POC Glucose 117 mg/dL (70-99) H 04/08/18 20:35 Calcium 8.4 mg/dL (8.6-10.3) L 04/09/18 03:30 AST 65 Units/L (13-39) H 04/07/18 05:12 Serum Total Protein 5.4 g/dL (6.4-8.9) L 04/07/18 05:12 Albumin 2.1 g/dL (3.5-5.7) L 04/07/18 05:12 Albumin/Globulin Ratio 0.6 (1.1-2.2) L 04/07/18 05:12 Urine Clarity Cloudy (Clear) A 04/05/18 19:46 Urine Blood Moderate (Negative) H 04/05/18 19:46 Urine Bilirubin Small (Negative) H 04/05/18 19:46 Urine Microscopic RBC 5-15 per hpf (0-3) H 04/05/18 19:46 Consult Discharge Plan - Plan Referrals: Roberto Rodney DO [Primary Care Provider] -
[2018-04-09] MEDS: acetaZOLAMIDE 250 MG TABLET PO SCH ×2 (09:09→20:35)
[2018-04-09] MEDS: *HR* Amiodarone 200 MG TABLET PO SCH (09:09)
[2018-04-09] MEDS: Cholecalciferol (D-3) 1,000 UNIT TABLET PO SCH (09:10)
[2018-04-09] MEDS: *HR* Rivaroxaban 15 MG TABLET PO SCH (09:10)
[2018-04-09] MEDS: Finasteride 5 MG TABLET PO SCH (09:10)
[2018-04-09] MEDS: Vitamin B Complex/Vit C/Vit E 1 EACH TABLET PO SCH (09:10)
[2018-04-09] MEDS: Acetaminophen 325 MG TABLET PO PRN ×2 (09:11→18:23)
--- NOTE | 2018-04-09 09:57 | Internal Med Progress Note ---
Hospitalist Progress Note - Encounter Date of Encounter: 04/09/18 Time of Encounter: 09:57 - Subjective Interval History: Patient was seen and examined at bedside currently patient is asleep but arouses to verbal stimuli oriented to name only. He does complain of lower extremity pain I did discuss treatment plan with the patient's who is at the bedside - Exam Vitals: Temp Pulse Resp BP Pulse Ox 97.5 F L 66 18 97/54 93 04/09/18 06:54 04/09/18 06:54 04/09/18 09:37 04/09/18 06:54 04/09/18 09:37 Exam: PHYSICAL EXAMINATION: GENERAL APPEARANCE: The patient is confused and in no acute distress. HEENT: Head is normocephalic. The sinuses are nontender. Pupils are equal and reactive. The nares are patent. Oropharynx clear without lesions. NECK: Supple without lymphadenopathy. HEART: Regular rate and rhythm. LUNGS: No crackles or wheezes are heard. ABDOMEN: Soft, nontender, nondistended with good bowel sounds heard. Inguinal area is normal. EXTREMITIES: Without cyanosis, clubbing-left arm is edematous pulses present in extremities 4 NEUROLOGICAL: Gross nonfocal. SKIN: Warm and dry without any rash. - Assessment and Plan (1) CAD (coronary artery disease) Current Visit: No Status: Chronic Assessment and Plan: pt has severe 2 vessel disease, status post CABG and stent placement. he does not have chest pain, troponin was negative. Continue home medication for CAD 04/09 Patient has a history of severe 2 vessel disease status post CABG and stent placement Pain troponins are negative With home medications (2) Paroxysmal atrial fibrillation Current Visit: No Status: Chronic Assessment and Plan: Rate controlled, continue home medication amiodarone and Xarelto. 04/09 Currently rate controlled continue with amiodarone and Xarelto (3) Weakness generalized Current Visit: Yes Status: Chronic Assessment and Plan: Same as above. (4) Congestive heart failure Current Visit: No Status: Chronic Assessment and Plan: Repeat echocardiogram showed ejection fraction 40-45%, with global hypokinesia. EF improved in comparison to prior echocardiogram. Chest x-ray upon arrival showed bilateral pulmonary edema, IV Lasix has a low dose was started. Repeat a chest x-ray this morning showed significant improvement of pulmonary edema. Lasix dc'ed due to poor oral intake. Encourage oral. 2/13 LVEF 35-40%. Indeterminate diastolic function. Atypical septal motion consistent with paced rhythm. Normal right ventricular structure and function. Moderately dilated left atrium. Mild aortic regurgitation. Bioprosthetic normal functioning mitral valve without stenosis. MG 5mmHg at 60/min Unable to estimate RVSP due to lack of TR jet. A device lead was visualized in the right atrium and right ventricle. Chest x-ray on presentation did show bilateral pulmonary edema IV Lasix was initiated and there was significant improvement in pulmonary edema. Lasix was then discontinued due to poor oral intake Monitor intake output, daily weight Does not appear fluid overloaded at this time (5) Encephalopathy acute Current Visit: Yes Status: Chronic Assessment and Plan: 04/07 Patient family room reported 5 weeks of progressive confusion, ataxia, and a generalized weakness. CT head revealed possible enlarged lateral ventricles. In nina of urinary symptoms with dementia and ataxia, normal pressure hydrocephalus was suspected. Neurology was consulted. Metabolic workup including vitamin B12, TSH, ammonia, lactic acid, which and the vitamin D, were unrevealing. Chest x-ray reviewed, patient does have bilateral pulmonary edema with left- sided infiltrate, IV Lasix at low-dose was started, she will also empirically started on IV antibiotics for possible pneumonia. Patient also received IV thiamine overnight. - Patient mental status seems improved this morning. - Although the etiology of his neurological symptoms was undetermined at this time, it likely multifactorial including acute urinary retention, possible infection, pulmonary edema, and possible nutrition deficiency including thiamine. NPH was less likely based on clinical presentation, CT imaging, and the neurology opinion. Because of pacemaker, we were unable to obtain MRI imaging. - We will continue current treatment, urology and neurology following, appreci ate their help. - Pending PT/OT. 04/08 Pt mental status remains confused and he is still weak. Urology recommended to remove Burton. will dc Burton. EEG abnormal but no epileptic waveform, Neuro thinks pt mental status was likely caused by urinary retention on top of baseline dementia. MRI brain was unable to obtain due to pacer/AICD, although NPH was not highly possible, we do not have much to do to rule it out or confirm, I will empirically start Diamox and watch pt response, if no response for 2 months, there it can be dc'ed. PT/OT recommended SNF, Plan to DC to [facility] on . 04/09 Patient continues to be confused and he is weak neurology has been consulted and appreciate recommendations-according to neurology note that weakness is not primarily associated to his neurological etiology-gait apraxia due to possible dementia perhaps the fact mental status change may be medical in nature-weakness from deconditioning cannot identify specific neurological et iology. Recommending ECF placement for strengthening (6) DVT prophylaxis Current Visit: Yes Status: Acute Assessment and Plan: 1. On home Xarelto dosing. (7) Acute urinary retention Current Visit: Yes Status: Acute Assessment and Plan: 04/07 77-year-old male with extensive cardiovascular history including CAD, status post CABG, status post stent, femoropopliteal bypass on the right side, status post ICD/pacemaker, severe systolic CHF, hypertension, ischemic cardiomyopathy, atrial fibrillation, and a newly diagnosed BPH. Patient was recently hospitalized at [facility] for urinary retention, to medications including Flomax were started today. Patient presented to this hospital ED for confusion, imbalance, generalized weakness on 04/06. Bladder scan revealed 500 mL residual. Burton catheter was placed. Home medication was continued. Serum creatinine improved from 1.4-1.0 Renal ultrasound unremarkable. Urology consult, appreciate help. 04/08 Will remove Burton per urology recs. 04/09 According to urology note recommending continue Burton catheter until evaluated as outpatient to discuss options for outlet obstruction with surgical intervention versus long-term catheterization - Time Spent with Patient Total time spent is greater than 50% in coordination of care (as documented) at patient's floor/unit and/or counseling patient: Internal Medicine: Result - Labs CBC & Chem 7: 04/09/18 03:30 04/09/18 03:30 Labs: Short CBC 04/09/18 Range/Units 03:30 WBC 7.7 (4.3-11.1) K/mcL Hgb 11.2 L (12.9-16.9) g/dL Hct 34.3 L (37.5-50.1) % Plt Count 150 (140-400) K/mcL Neutrophils # 5.8 (1.6-8.9) K/mcL BMP 04/09/18 03:30 Sodium 137 Potassium 3.8 Chloride 109 H Carbon Dioxide 21 L BUN 28 H Creatinine 0.80 Glucose 105 Calcium 8.4 L - Impressions Impressions Cervical Spine CT 04/08/18 17:45 IMPRESSION: 1. No acute abnormality of the cervical spine. 2. Degenerative changes without significant bony spinal canal stenosis or bony neural foraminal narrowing in the cervical spine. D/ / Anisha Benitez MD / Anisha Benitez MD Interpreting Provider: Anisha Benitez MD Lumbar Spine CT 04/08/18 17:45 IMPRESSION: Unremarkable non-contrast CT of the lumbar spine. Severe calcified plaque in the wall of abdominal aorta. Bilateral pleural effusions are minimally included on the field of view of this exam. D/ / Anisha Benitez MD / Anisha Benitez MD Interpreting Provider: Anisha Benitez MD Consult Discharge Plan - Plan Referrals: Roberto Rodney, DO [Primary Care Provider] - (1) CAD (coronary artery disease) Qualifiers: Coronary Disease-Associated Artery/Lesion type: [place] artery [place] vs. transplanted heart: [place] heart Associated angina: without angina Qualified Code(s): I25.10 - Atherosclerotic heart disease of sioux coronary artery without angina pectoris (4) Congestive heart failure Qualifiers: Heart failure type: combined systolic and diastolic Heart failure chronicity: chronic Qualified Code(s): I50.42 - Chronic combined systolic (congestive) and diastolic (congestive) heart failure
[2018-04-09] MEDS ORDERED: 0.9 % Sodium Chloride 1,000 ML IVC SCH (11:00)
[2018-04-09] MEDS: Azithromycin 500 MG in D5% in Water 250 ML IVPB SCH (14:11)
[2018-04-09] MEDS ORDERED: Ondansetron 4 MG/2 ML VIAL IVP PRN (18:21)
[2018-04-09] MEDS: Mirtazapine 15 MG TABLET PO SCH (20:35)
[2018-04-09 22:10] LABS: Adenovirus F 40/41 PCR Not detected (Not detect); Astrovirus PCR Not detected (Not detect); C.difficile Toxin A/B Gene PCR Not detected (Not detect); Campylobacter by PCR Not detected (Not detect); Cryptosporidium by PCR Not detected (Not detect); Cyclospora cayetanensis PCR Not detected (Not detect); E. coli O157 by PCR Not detected (Not detect); Entamoeba histolytica PCR Not detected (Not detect); Enteroaggregative E.coli(EAEC) Not detected (Not detect); Enteropathogenic E.coli(EPEC) Not detected (Not detect); Enterotoxigenic E.coli (ETEC) Not detected (Not detect); Giardia lamblia PCR Not detected (Not detect); Norovirus GI/GII PCR Not detected (Not detect); Plesiomonas shigelloides PCR Not detected (Not detect); Rotavirus A PCR Not detected (Not detect); Salmonella PCR Not detected (Not detect); Sapovirus PCR Not detected (Not detect); Shig/EnteroinvasiveE coli EIEC Not detected (Not detect); Shigalike tox-prod E coli STEC Not detected (Not detect); Vibrio PCR Not detected (Not detect); Vibrio cholerae PCR Not detected (Not detect); Yersinia enterocolitica PCR Not detected (Not detect)
[2018-04-10 06:58] LABS: Basophils % 0.7 %; Eosinophils # 0.2 K/mcL (0.0-0.6); Eosinophils % 3.6 %; Hematocrit 36.9 % (37.5-50.1); Hemoglobin 11.9 g/dL (12.9-16.9); Lymphocytes # 0.9 K/mcL (0.6-4.6); Lymphocytes % 15.2 %; Mean Corpuscular HGB Conc 32.2 g/dL (31.6-35.5); Mean Corpuscular Hemoglobin 27.4 pg (28.0-33.3); Mean Platelet Volume 11.6 fL (9.4-12.4); Monocytes # 0.6 K/mcL (0.0-1.3); Monocytes % 9.6 %; Neutrophils # 4.1 K/mcL (1.6-8.9); Platelet Count 167 K/mcL (140-400); Red Blood Count 4.34 M/mcL (4.19-5.50); Red Cell Distribution Width 17.3 % (11.5-14.5); Segmented Neutrophils % 69.9 %
[2018-04-10 07:11] VITALS: BP 116/70
[2018-04-10 07:15] LABS: BUN/Creatinine Ratio 26 (6-26); Blood Urea Nitrogen 25 mg/dL (8-23); Calcium 8.9 mg/dL (8.6-10.3); Carbon Dioxide 24 mEq/L (23-29); Chloride 111 mEq/L (98-107); Glucose 92 mg/dL (70-105); Osmolality,Calculated 292 (280-300); Potassium 3.9 mEq/L (3.5-5.1); Sodium 139 mEq/L (136-145); eGFR For Non-African Americans > 60 (> 60)
[2018-04-10] MEDS: *HR* Rivaroxaban 15 MG TABLET PO SCH (07:32)
[2018-04-10] MEDS: Finasteride 5 MG TABLET PO SCH (07:32)
[2018-04-10] MEDS: Vitamin B Complex/Vit C/Vit E 1 EACH TABLET PO SCH (07:32)
[2018-04-10] MEDS: acetaZOLAMIDE 250 MG TABLET PO SCH (07:32)
[2018-04-10] MEDS: *HR* Amiodarone 200 MG TABLET PO SCH (07:32)
[2018-04-10] MEDS: Cholecalciferol (D-3) 1,000 UNIT TABLET PO SCH (07:32)
--- NOTE | 2018-04-10 11:42 | Discharge Summary ---
- NOTES TO OUTPATIENT PROVIDER Notes to Outpatient Provider: Will need follow-up with urology as outpatient discuss options for outlet obstruction with surgical intervention versus long- term catheterization. Continue with Burton catheter at this time until evaluated Date of Encounter: 04/10/18 Time of Encounter: 11:39 - Discharge Diagnosis (1) CAD (coronary artery disease) Priority: Secondary Status: Chronic Qualifiers: Coronary Disease-Associated Artery/Lesion type: [place] artery [place] vs. transplanted heart: [place] heart Associated angina: without angina Qualified Code(s): I25.10 - Atherosclerotic heart disease of [place] coronary artery without angina pectoris (2) Paroxysmal atrial fibrillation Priority: Secondary Status: Chronic (3) Weakness generalized Priority: Primary Status: Chronic (4) Congestive heart failure Priority: Secondary Status: Chronic Qualifiers: Heart failure type: combined systolic and diastolic Heart failure chronicity: chronic Qualified Code(s): I50.42 - Chronic combined systolic (congestive) and diastolic (congestive) heart failure (5) Encephalopathy acute Priority: Secondary Status: Chronic (6) Acute urinary retention Priority: Secondary Status: Acute Hospital course: Mr. Turner is a 77 year old male past medical history of current myopathy atrial fibrillation CHF hyperlipidemia hypertension presented to [facility] ED with progressive weakness confusion and hallucinations. express that patient was as baseline up until parking 5 weeks ago he started developing bilateral lower extremity weakness. He also been complaining of back and neck pain. Patient has had some cognitive decline since 2018 the past week he has been experiencing auditory or visual hallucinations as well as grown progressively somnolent with intermittent confusion and poor appetite. Laboratory workup does not reveal any infectious process, TSH and vitamin B12 and ammonia levels urinalysis is are all within normal limits CT scan of brain revealed significant generalized atrophy with compensatory ventricular dilatation CT of cervical lumbar spine unremarkable. Patient did have some urinary retention Burton catheter was placed and urology was consulted recommending continuation of Burton until follow-up as outpatient neurology was consulted-concerning developing gait apraxia due to dementia suspect no status changes may be due to medical issues perhaps some sundowning effect and weakness from deconditioning. PT and OT evaluate patient recommended ECF for rehabilitation. Patient did have some swelling in lower extremities and upper extremities venous duplex was negative for a DVT. Did review all medications with the patient's states patient is no longer taking [place] metoprolol or Imdur. Pharmacy did review patient's previous fills this. He did have these recently noticed pharmacy. I also spoke with nurse practitioner Guerrero Fortune cardiology who agreed to stop Brilinta and patient could resume metoprolol and Imdur at very low dose if blood pressure allowed, also recommended to place patient on low-dose aspirin. currently patient heart rate and blood pressure is on the low side. Currently he is hemodynamically stable at this time and he is ready for discharge. - Time Spent with Patient Total time spent providing and/or coordinating discharge services: - Discharge Medications Prescriptions: Aspirin 81 mg PO DAILY #30 tab.chew Home Medications: Atorvastatin [Lipitor] 20 mg PO HS 06/23/17 [History] Cholecalciferol (Vitamin D3) [Vitamin D3] 2,000 unit PO DAILY 06/23/17 [History] Montelukast [Singulair] 10 mg PO QPM 06/23/17 [History] Rivaroxaban [Xarelto] 15 mg PO DAILY 06/23/17 [History] Amiodarone [Cordarone] 400 mg PO DAILY 30 Days tablet 06/28/17 [Rx] Omeprazole [PriLOSEC] 20 mg PO DAILY@0630 #30 capsule.dr 06/28/17 [Rx] Finasteride [Proscar] 5 mg PO DAILY #30 tablet 04/01/18 [Rx] Tamsulosin [Flomax] 0.4 mg PO DAILY #30 cap.er.24h 04/01/18 [Rx] Citalopram [CeleXA] 20 mg PO DAILY 04/07/18 [History] Mirtazapine [Remeron] 15 mg PO HS 04/07/18 [History] Sennosides [Senna] 17.2 mg PO HS PRN 04/07/18 [History] Albuterol Sulfate [Albuterol Inhaler] 1 puff IH DAILY inhaler 04/10/18 [Rx] Aspirin 81 mg PO DAILY #30 tab.chew 04/10/18 [Rx] Megestrol Acetate [Megace] 40 mg PO DAILY tablet 04/10/18 [Rx] Vitamin B Complex/Vit C/Vit E [Stresstab] 1 each PO DAILY tablet 04/10/18 [Rx] Allergies/Adverse Reactions: Allergy/AdvReac Type Severity Reaction Status Date / Time No Known Allergies Allergy Verified 08/20/17 12:50 Date of admission: 04/07/18 12:57 Primary care physician: Roberto Rodney DO Consults: 04/06/18 02:10 Consult to Urology [CONS] Routine Consulting Provider: Urology [facility] Reason for Consult: urinary retention; suspect prostate hypertrophy Call Completed: No 04/06/18 08:00 Consult to Physical Therapy [CONS] Routine Comment: Evaluate, develop and implement POC Reason for Consult: weakness Does patient have active BEDREST order?: No Is patient medically & hemodynamically stable?: Yes Patient assessed for mobility or mobilized this visit?: Yes OT [Consult to Occupational Therapy] [CONS] Routine Comment: Evaluate, develop and implement POC Reason for Consult: weakness Does patient have active BEDREST order?: No Is patient medically & hemodynamically stable?: Yes Patient assessed for mobility or mobilized this visit?: Yes 04/06/18 10:56 Consult to Neurology [CONS] Routine Consulting Provider: Neurology [facility] Reason for Consult: demnetia, ataxia nd urinary issues, possible normal pressure hydrocephalus Call Completed: Yes 04/07/18 07:56 Consult to Nurse Navigator [CONS] Routine Comment: CHF 04/07/18 11:57 Consult to Interpret Exam [CONS] Routine Consulting Provider: Seng Rao Consult to Interpret Exam: Interpret EEG 04/07/18 15:37 Consult to Nutrition [CONS] Routine Comment: Consulting Provider: NUTRITION Reason for Dietary Consult: PO Supplementation Discharging clinician: Sharon Black Anticipated date of discharge: 04/10/18 - Constitutional Vitals: Temp Pulse Resp BP Pulse Ox 98.1 F 71 16 116/70 97 04/10/18 07:10 04/10/18 07:10 04/10/18 07:19 04/10/18 07:10 04/10/18 07:19 General appearance: Present: cooperative, A&O X 1, pleasant. Absent: answers questions appropriately (confused) Exam: PHYSICAL EXAMINATION: GENERAL APPEARANCE: The patient is confused and in no acute distress. HEENT: Head is normocephalic. The sinuses are nontender. Pupils are equal and reactive. The nares are patent. Oropharynx clear without lesions. NECK: Supple without lymphadenopathy. HEART: Regular rate and rhythm. LUNGS: No crackles or wheezes are heard. ABDOMEN: Soft, nontender, nondistended with good bowel sounds heard. Inguinal area is normal. EXTREMITIES: Without cyanosis, clubbing-left arm is edematous pulses present in extremities 4 NEUROLOGICAL: Gross nonfocal. SKIN: Warm and dry without any rash. - Patient Status Disposition: Transfer SNF Condition: Fair Functional capacity at discharge: uses cane/walker Overall status at discharge: patient is progressing back to baseline - Discharge Instructions Follow Up With: Roberto Rodney, [Primary Care Provider] - - Diet and Activity Activity: as per physical therapy Diet: advance to your usual diet
--- NOTE | 2018-04-10 13:45 | Physician Discharge Referral ---
ExtendedCare Referral Info Transfer To: [facility] Provider in Charge: Barber Black Provider in Charge after Transfer: PCP Institutional Level of Care: Skilled - Diagnosis (1) CAD (coronary artery disease) Priority: Secondary Status: Chronic (2) Paroxysmal atrial fibrillation Priority: Secondary Status: Chronic (3) Weakness generalized Priority: Primary Status: Chronic (4) Congestive heart failure Priority: Secondary Status: Chronic (5) Encephalopathy acute Priority: Secondary Status: Chronic (6) Acute urinary retention Priority: Secondary Status: Acute - Transfer Medications Prescriptions: Aspirin 81 mg PO DAILY #30 tab.chew Home Medications: Atorvastatin [Lipitor] 20 mg PO HS 06/23/17 [History] Cholecalciferol (Vitamin D3) [Vitamin D3] 2,000 unit PO DAILY 06/23/17 [History] Montelukast [Singulair] 10 mg PO QPM 06/23/17 [History] Rivaroxaban [Xarelto] 15 mg PO DAILY 06/23/17 [History] Amiodarone [Cordarone] 400 mg PO DAILY 30 Days tablet 06/28/17 [Rx] Omeprazole [PriLOSEC] 20 mg PO DAILY@0630 #30 capsule.dr 06/28/17 [Rx] Finasteride [Proscar] 5 mg PO DAILY #30 tablet 04/01/18 [Rx] Tamsulosin [Flomax] 0.4 mg PO DAILY #30 cap.er.24h 04/01/18 [Rx] Citalopram [CeleXA] 20 mg PO DAILY 04/07/18 [History] Mirtazapine [Remeron] 15 mg PO HS 04/07/18 [History] Sennosides [Senna] 17.2 mg PO HS PRN 04/07/18 [History] Albuterol Sulfate [Albuterol Inhaler] 1 puff IH DAILY inhaler 04/10/18 [Rx] Aspirin 81 mg PO DAILY #30 tab.chew 04/10/18 [Rx] Megestrol Acetate [Megace] 40 mg PO DAILY tablet 04/10/18 [Rx] Vitamin B Complex/Vit C/Vit E [Stresstab] 1 each PO DAILY tablet 04/10/18 [Rx] Allergies/Adverse Reactions: Allergy/AdvReac Type Severity Reaction Status Date / Time No Known Allergies Allergy Verified 08/20/17 12:50 - Respiratory Orders Smoking Cessation: Smoking cessation has been advised. For more information, call the [place] Tobacco Quit Line at 9-511-UELI-NOW. - Mobility Orders Ambulate - Rehabiliation Orders Rehab Potential: Good Rehab Orders: Evaluation for Physical Therapy, Evaluation for Occupational Therapy - Diet Orders No Added Salt (FELICIA) CERTIFICATION: I certify that the transfer of the above named patient to an Extended Care Facility is necessary for the continuing treatment of the diagnosis listed. The above information is true and accurate reflection of patient's current condition. Confidential - Redisclosure prohibited without a patient's written consent.
[2018-04-10] MEDS: Acetaminophen 325 MG TABLET PO PRN (14:02)
== END 2018-04-10 15:16 | DRG 690 ==
LOC: EMEROOARM 18:17 → 3BNU 18:17
PROVIDERS: ADMIT Family Medicine; ATTEND Family Medicine